=== PATIENT | male | born 1960 | race Caucasian/White ===

== ENCOUNTER 2023-04-25 11:56 | Emergency (ER) | payer MEDICARE, SELFPAY ==
[2023-04-25 12:01] VITALS: BP 144/102; PULSE 121; RESP 16; TEMP 36.5; O2SAT 96
--- OUTSIDE RECORDS SUMMARY | 2023-04-25 12:16 | XMS_ITS | Continuity of Care Document ---
Author Name Unknown Organization [facility] Address [address] [place] [address] Care Team Providers Care Learning Center Coordinator Name Role Phone Page Cheli SINGH Primary Care Physician Encounter [facility] NBR [id number] Date(s): 03/23/23 - 03/25/23 [facility] [address] [place] [address]- Encounter Diagnosis Status post alcohol detoxification(Discharge Diagnosis) - 03/23/23 Epigastric pain(Discharge Diagnosis) - 03/23/23 Alcohol abuse(Discharge Diagnosis) - 03/23/23 Tachycardia(Discharge Diagnosis) - 03/23/23 Diarrhea(Discharge Diagnosis) - 03/23/23 Hypokalemia(Discharge Diagnosis) - 03/23/23 Hypomagnesemia(Discharge Diagnosis) - 03/23/23 Discharge Disposition: Home f/u External Provider Attending Physician: John Grajeda MD Admitting Physician: John Grajeda MD Allergies, Adverse Reactions, Alerts Substance Reaction Severity Status Cats Unknown Active Assessment and Plan Future Scheduled Tests Laboratory* Vitamin D 25 Hydroxy Level 03/10/23 * Vitamin D 25 Hydroxy Level 03/10/23 * Potassium Level 03/10/23 * Potassium Level 03/10/23 * CBC w/ Diff 03/10/23 * CBC w/ Diff 03/10/23 * Comprehensive Metabolic Panel 03/10/23 * Comprehensive Metabolic Panel 03/10/23 * Magnesium Level 03/10/23 * Magnesium Level 03/10/23 * Vitamin B1 (Thiamine), Blood LC 03/10/23 * Vitamin B1 (Thiamine), Blood LC 03/10/23 * Vitamin B12 & Folate Level 03/10/23 * Vitamin B12 & Folate Level 03/10/23 Functional Status 03/25/23 Lunch Percent 90 03/25/23 Breakfast Percent 100 03/25/23 ADLs Moderate assistance 03/24/23 Personal Care Provided Diaper/Brief mccloud ged, Gown change, Shave, Shower 03/23/23 Activity Status ADL Up to toilet 03/23/23 Family Member Travel History No recent t ravel Recent Travel History No recent travel Other exposure to Infectious Disease Non e 03/23/23 Living Environment No Living Environmen t Information Available Lives In Apartment Lives With Alone Living Situation Home independently Medications albuterol 90 mcg/inh aerosol inhaler 2 puffs, Inhale, every 4 hr, PRN as needed for wheezing, # 6.7 g, 0 Refill(s) Start Date: 03/24/23 Status: Ordered folic acid 0.4 mg oral tablet 0.4 mg = 1 tab, Oral, Daily, # 100 tab, 0 Refill(s) Start Date: 02/24/23 Status: Ordered hydrOXYzine hydrochloride 50 mg oral tablet 50 mg = 1 tab, Oral, TID, PRN as needed for anxiety Start Date: 10/20/22 Status: Ordered ibuprofen 200 mg oral tablet 400 mg = 2 tab, Oral, every 4 hr, PRN as needed for pain, # 120 tab, 0 Refill(s) Start Date: 02/24/23 Status: Ordered loratadine 10 mg oral tablet 10 mg = 1 tab, Oral, Daily, PRN as needed for allergy symptoms, # 30 tab, 0 Refill(s) Start Date: 03/24/23 Status: Ordered magnesium oxide 400 mg (241.3 mg elemental magnesium) oral tablet 400 mg = 1 tab, Oral, BID, # 60 tab, 0 Refill(s), Pharmacy: [facility] #[id number], 165, cm, 02/23/23 14:34:00 EDT, Height/Length Dosing, 64, kg, 02/23/23 14:34:00 EDT, Weight Dosing Start Date: 02/27/23 Status: Ordered Metoprolol Tartrate 25 mg oral tablet 25 mg = 1 tab, Oral, BID, # 60 tab, 0 Refill(s), Pharmacy: [facility] #[id number], 165, cm, 02/23/23 14:34:00 EDT, Height/Length Dosing, 64, kg, 02/23/23 14:34:00 EDT, Weight Dosing Start Date: 02/27/23 Status: Ordered naltrexone 50 mg oral tablet 50 mg = 1 tab, Oral, Daily, # 90 tab, 0 Refill(s) Start Date: 03/24/23 Status: Ordered pantoprazole 40 mg oral delayed release tablet 40 mg = 1 tab, Oral, every morning Start Date: 10/20/22 Status: Ordered potassium chloride 20 mEq oral tablet, extended release 40 mEq = 2 tab, Oral, BID, # 60 tab, 0 Refill(s), Pharmacy: [facility] #[id number], 165, cm, 03/23/23 18:02:00 EDT, Height/Length Dosing, 61.3, kg, 03/23/23 18:02:00 EDT, Weight Dosing Start Date: 03/25/23 Status: Ordered Seroquel 50 mg oral tablet 50 mg = 1 tab, Oral, every night at bedtime Start Date: 03/23/23 Status: Ordered sertraline 100 mg oral tablet 100 mg = 1 tab, Oral, Daily, # 30 tab, 0 Refill(s) Start Date: 03/24/23 Status: Ordered thiamine 100 mg oral tablet 100 mg = 1 tab, Oral, Daily, 0 Refill(s) Start Date: 10/21/22 Status: Ordered Vitamin D3 2000 intl units oral capsule 50 mcg 1 cap, Oral, every morning Start Date: 10/21/22 Status: Ordered Mental Status 03/23/23 Eye Opening Response Bartow Spontaneous ly Best Verbal Response [place] Oriented Best Motor Response Bartow Obeys comman ds Bartow Coma Score 15 Problem List Condition Confirmation Course Effective Dates Status Health St atus Informant Alcohol use with withdrawal Confirmed Active Results Laboratory List Name Date Potassium Level 03/25/23 Basic Metabolic Panel (BMP) 03/25/23 CBC w/ Diff 03/25/23 Magnesium Level 03/25/23 Automated Diff 03/25/23 Automated Diff 03/24/23 Basic Metabolic Panel (BMP) 03/24/23 CBC w/ Diff 03/24/23 Magnesium Level 03/24/23 GI Panel ([facility]) 03/23/23 Urinalysis with Micro if Indicated and C ulture if Indicated 03/23/23 Alcohol Lvl 03/23/23 CBC w/ Diff 03/23/23 Comprehensive Metabolic Panel (CMP) Lipase Level 03/23/23 Magnesium Level 03/23/23 Automated Diff 03/23/23 Most recent to oldest [Reference Range]: 1 2 3 WBC [4.8-10.8 K/mcL] 8.8 K/mcL (03/25/23 9:45 AM) 7.9 K/mcL (03/24/23 6:04 AM) 13.9 K/mcL *HI* (03/23/23 11:10 AM) RBC [4.20-6.10 Million/mcL] 3.92 Million /mcL *LOW* (03/25/23 9:45 AM) 3.69 Million/mcL *LOW* (03/24/23 6:04 AM) 4.46 Million/mcL (03/23/23 11:10 AM) Neutro Auto [42.2-75.2 %] 73.6 % (03/25/23 9:45 AM) 73.8 % (03/24/23 6:04 AM) 82.7 % *HI* (03/23/23 11:10 AM) Lymph Auto [20.5-51.1 %] 16.4 % *LOW* (03/25/23 9:45 AM) 15.9 % *LOW* (03/24/23 6:04 AM) 8.5 % *LOW* (03/23/23 11:10 AM) Prowers Auto [1.7-9.3 %] 8.5 % (03/25/23 9:45 AM) 9.3 % (03/24/23 6:04 AM) 7.8 % (03/23/23 11:10 AM) Basophil Auto [0.0-0.8 %] 0.1 % (03/25/23 9:45 AM) 0.1 % (03/24/23 6:04 AM) 0.1 % (03/23/23 11:10 AM) BUN [8-26 mg/dL] 8 mg/dL (03/25/23 9:45 AM) 8 mg/dL (03/24/23 6:04 AM) 10 mg/dL (03/23/23 11:10 AM) UA Color [Yellow] Yellow (03/23/23 1:20 PM) Glucose Level [74-106 mg/dL] 130 mg/dL *HI* (03/25/23 9:45 AM) 85 mg/dL (03/24/23 6:04 AM) 101 mg/dL (03/23/23 11:10 AM) Potassium Level [3.5-5.1 mmol/L] 3.7 mmol/L (03/25/23 3:00 PM) 2.8 mmol/L *LOW* (03/25/23 9:45 AM) 3.2 mmol/L *LOW* (03/24/23 6:04 AM) Baso Absolute [0.0-0.2 K/mcL] 0.0 K/mcL (03/25/23 9:45 AM) 0.0 K/mcL (03/24/23 6:04 AM) 0.0 K/mcL (03/23/23 11:10 AM) MCV [80.0-94.0 fL] 95.7 fL *HI* (03/25/23 9:45 AM) 96.2 fL *HI* (03/24/23 6:04 AM) 92.6 fL (03/23/23 11:10 AM) UA Urobilinogen [0.2] 1.0 *ABN* (03/23/23 1:20 PM) UA Bili [Negative] Negative (03/23/23 1:20 PM) UA Ketones [Negative] Negative (03/23/23 1:20 PM) AST [15-41 IntlUnit/L] 48 IntlUnit/L *HI* (03/23/23 11:10 AM) ALT [17-63 IntlUnit/L] 30 IntlUnit/L (03/23/23 11:10 AM) MCHC [32.0-36.0 g/dL] 34.4 g/dL (03/25/23 9:45 AM) 33.5 g/dL (03/24/23 6:04 AM) 34.9 g/dL (03/23/23 11:10 AM) Osmolality [275-295 mOsm/kg] 276 mOsm/kg (03/25/23 9:45 AM) 271 mOsm/kg *LOW* (03/24/23 6:04 AM) 269 mOsm/kg *LOW* (03/23/23 11:10 AM) Sodium Level [134-143 mmol/L] 138 mmol/L (03/25/23 9:45 AM) 137 mmol/L (03/24/23 6:04 AM) 135 mmol/L (03/23/23 11:10 AM) UA Leuk Est [Negative] Negative (03/23/23 1:20 PM) Lymph Absolute [1.2-3.4 K/mcL] 1.4 K/mcL (03/25/23 9:45 AM) 1.2 K/mcL (03/24/23 6:04 AM) 1.2 K/mcL (03/23/23 11:10 AM) UA Nitrite [Negative] Negative (03/23/23 1:20 PM) UA Glucose [Negative] Negative (03/23/23 1:20 PM) Hct [42.0-52.0 %] 37.5 % *LOW* (03/25/23 9:45 AM) 35.5 % *LOW* (03/24/23 6:04 AM) 41.3 % *LOW* (03/23/23 11:10 AM) Lipase Level [18-51 unit/L] 27 unit/L 1 (03/23/23 11:10 AM) Calcium Level [8.9-10.3 mg/dL] 8.2 mg/dL *LOW* (03/25/23 9:45 AM) 7.8 mg/dL *LOW* (03/24/23 6:04 AM) 8.8 mg/dL *LOW* (03/23/23 11:10 AM) Prowers Absolute [0.1-0.6 K/mcL] 0.8 K/mcL *HI* (03/25/23 9:45 AM) 0.7 K/mcL *HI* (03/24/23 6:04 AM) 1.1 K/mcL *HI* (03/23/23 11:10 AM) Albumin Level [3.5-5.0 g/dL] 3.5 g/dL (03/23/23 11:10 AM) Protein Total [6.5-8.1 g/dL] 6.6 g/dL (03/23/23 11:10 AM) UA Protein [Negative] Negative (03/23/23 1:20 PM) MCH [27.0-31.0 pg] 32.9 pg *HI* (03/25/23 9:45 AM) 32.2 pg *HI* (03/24/23 6:04 AM) 32.3 pg *HI* (03/23/23 11:10 AM) Magnesium Level [1.8-2.5 mg/dL] 1.8 mg/d L (03/25/23 9:45 AM) 2.0 mg/dL (03/24/23 6:04 AM) 1.4 mg/dL *LOW* (03/23/23 11:10 AM) Neutro Absolute [1.4-6.5 K/mcL] 6.5 K/mc L (03/25/23 9:45 AM) 5.8 K/mcL (03/24/23 6:04 AM) 11.5 K/mcL *HI* (03/23/23 11:10 AM) Bilirubin Total [0.2-1.2 mg/dL] 2.6 mg/d L *HI* (03/23/23 11:10 AM) Hgb [14.0-18.0 g/dL] 12.9 g/dL *LOW* (03/25/23 9:45 AM) 11.9 g/dL *LOW* (03/24/23 6:04 AM) 14.4 g/dL (03/23/23 11:10 AM) Alk Phos [38-130 IntlUnit/L] 129 IntlUni t/L (03/23/23 11:10 AM) UA Blood [Negative] Negative (03/23/23 1:20 PM) MPV [7.4-10.4 fL] 10.2 fL (03/25/23 9:45 AM) 9.7 fL (03/24/23 6:04 AM) 10.3 fL (03/23/23 11:10 AM) Ethanol Level [0.00-0.08 g/dL] See Comme nt g/dL 2 *NA* (03/23/23 11:10 AM) UA Spec Grav [1.001-1.030] <=1.005 *NA* (03/23/23 1:20 PM) Platelets [130-400 K/mcL] 135 K/mcL (03/25/23 9:45 AM) 113 K/mcL *LOW* (03/24/23 6:04 AM) 171 K/mcL (03/23/23 11:10 AM) CO2 [22-32 mmol/L] 22 mmol/L (03/25/23 9:45 AM) 23 mmol/L (03/24/23 6:04 AM) 26 mmol/L (03/23/23 11:10 AM) Eos Absolute [0.0-0.2 K/mcL] 0.1 K/mcL (03/25/23 9:45 AM) 0.0 K/mcL (03/24/23 6:04 AM) 0.0 K/mcL (03/23/23 11:10 AM) UA pH [5.00-9.00] 7.50 (03/23/23 1:20 PM) UA Appear [Clear] Clear (03/23/23 1:20 PM) Chloride Level [98-111 mmol/L] 108 mmol/ L (03/25/23 9:45 AM) 105 mmol/L (03/24/23 6:04 AM) 93 mmol/L *LOW* (03/23/23 11:10 AM) RDW-CV [11.5-14.5 %] 14.6 % *HI* (03/25/23 9:45 AM) 14.5 % (03/24/23 6:04 AM) 14.0 % (03/23/23 11:10 AM) Adenovirus F 40/41 GIP-BFire [Not Detected] Not Detected (03/23/23 6:18 PM) Astrovirus GIP-BFire [Not Detected] Not Detected (03/23/23 6:18 PM) Cyclospora cayetanensis GIP-BFire [Not Detected] Not Detected (03/23/23 6:18 PM) Clostridioides difficile tox in A/B -BFir [Not Detected] Not Detected (03/23/23 6:18 PM) Campylobacter GIP-BFire [Not Detected] Not Detected (03/23/23 6:18 PM) Cryptosporidium GIP-BFire [N ot Detected] Not Detected (03/23/23 6:18 PM) E. coli O157 GIP-BFire [Not Detected] N/A (03/23/23 6:18 PM) Entamoeba histolytica GIP-BF juan [Not Detected] Not Detected (03/23/23 6:18 PM) Enteroaggregative E. coli GIP-BFire [Not Detected] Not Detected (03/23/23 6:18 PM) Enteropathogenic E. coli GIP-BFire [Not Detected] Not Detected (03/23/23 6:18 PM) Enterotoxige E. coli LT/ST GIP-BFire [Not Detected] Not Detected (03/23/23 6:18 PM) Giardia lamblia GIP-BFire [N ot Detected] Not Detected (03/23/23 6:18 PM) Norovirus GI/GII GIP-BFire [ Not Detected] Not Detected (03/23/23 6:18 PM) Plesiomonas shigelloides GIP-BFire [Not Detected] Not Detected (03/23/23 6:18 PM) Rotavirus A GIP-BioF [Not Detected] Not Detected (03/23/23 6:18 PM) Salmonella GIP-BFire [Not Detected] Not Detected (03/23/23 6:18 PM) Sapovirus GIP-BFire Not Detected (03/23/23 6:18 PM) Shiga-toxin1/2-prod E.coli GIP-BFire [Not Detected] Not Detected (03/23/23 6:18 PM) Shigella/Enteroinv E. coli GIP-BFire [Not Detected] Not Detected (03/23/23 6:18 PM) Vibrio cholerae GIP-BFire [N ot Detected] Not Detected (03/23/23 6:18 PM) Vibrio species GIP-BFire [No t Detected] Not Detected (03/23/23 6:18 PM) Yersinia enterocolitica GIP-BFire [Not Detected] Not Detected (03/23/23 6:18 PM) A/G Ratio 1.1 *NA* (03/23/23 11:10 AM) BUN/Creat Ratio [8.0-20.0] 11.1 (03/25/23 9:45 AM) 9.9 (03/24/23 6:04 AM) 10.6 (03/23/23 11:10 AM) Globulin 3.1 *NA* (03/23/23 11:10 AM) Imm Gran Absolute 0.05 *NA* (03/25/23 9:45 AM) 0.05 *NA* (03/24/23 6:04 AM) 0.11 *NA* (03/23/23 11:10 AM) Imm Gran Auto [0.0-0.5 %] 0.6 % *HI* (03/25/23 9:45 AM) 0.6 % *HI* (03/24/23 6:04 AM) 0.8 % *HI* (03/23/23 11:10 AM) NRBC Auto 0 *NA* (03/25/23 9:45 AM) 0 *NA* (03/24/23 6:04 AM) NRBC Absolute 0 *NA* (03/25/23 9:45 AM) 0 *NA* (03/24/23 6:04 AM) Slide Review Not Indicated (03/23/23 11:10 AM) Urine Srce Clean Catch (03/23/23 1:20 PM) Creatinine Level [0.61-1.24 mg/dL] 0.72 mg/dL (03/25/23 9:45 AM) 0.81 mg/dL (03/24/23 6:04 AM) 0.94 mg/dL (03/23/23 11:10 AM) Anion Gap [3.0-12.0] 8.0 (03/25/23 9:45 AM) 9.0 (03/24/23 6:04 AM) 16.0 *HI* (03/23/23 11:10 AM) Eos, Auto [0.00-3.00 %] 0.80 % (03/25/23 9:45 AM) 0.30 % (03/24/23 6:04 AM) 0.10 % (03/23/23 11:10 AM) Instr Ethanol Lvl [<=5 mg/dL] <5 mg/dL (03/23/23 11:10 AM) eGFR CKD-EPI [>=60 mL/min/1. 73 m2] 103 mL/min/1.73 m2 (03/25/23 9:45 AM) 99 mL/min/1.73 m2 (03/24/23 6:04 AM) 91 mL/min/1.73 m2 (03/23/23 11:10 AM) 1Interpretive Data: V-uiqmha-x-benzoquinone imine (meabolite of Acetaminophen) will generate erroneously low lipase results in samples for patients that have taken toxic doses of acetaminophen. 2Result Comment: Unable to calculate ratio value as result is less than the linear limit. Radiology Reports * Exam Date Time Procedure Performing Provider Status 03/23/23 12:[address] Abdomen and Pelvis w/ Contrast Lita Holloway; Zoila (Verified) Notes: (CT Abdomen and Pelvis w/ Contrast) Reason For Exam: abd pain CT Abdomen and Pelvis w/ Contrast EXAM DESCRIPTION: CT Abdomen and Pelvis w/ Contrast 03/23/2023 INDICATION: ABD PAIN TECHNIQUE: All CT scans at this facility use at least one of these dose optimization techniques: Automated exposure control; mA and/or kV adjustment per patient size (includes targeted exams where dose is matched to clinical indication); or iterative reconstruction. Technique: Axial CT images of the abdomen/pelvis with IV contrast administration 100 cc of Isovue-300 contrast was utilized COMPARISON: None FINDINGS: Diffusely decreased hepatic attenuation consistent with hepatic steatosis. No focal hepatic lesion. Normal enhancement of the main hepatic veins and main portal vein. Normal spleen size without focal mass No calcified gallstones in the gallbladder. Adrenal glands and pancreas appear within normal limits. No focal renal mass, hydronephrosis or perinephric fluid collection on either side Normal caliber abdominal aorta with atherosclerotic calcifications. No retroperitoneal adenopathy in the abdomen or pelvis. Prostate gland is mildly enlarged with indentation of the bladder base No bowel dilatation to suggest obstruction or ileus. No free intraperitoneal air, ascites or inflammatory changes. Normal appendix. Scattered colonic diverticula. Tiny fat containing paraumbilical ventral abdominal hernia. Mild hiatal hernia. The visualized lung bases are clear. No suspicious regional osseous lesions. Mild compression deformity involving the L1 vertebral body of uncertain age, likely remote. Spondylotic changes in the visualized spinal axis. IMPRESSION: No acute findings in the abdomen or pelvis. Nonobstructive bowel pattern. No free air or inflammatory changes. Normal appendix Hepatic steatosis. Mild prostate enlargement. JOB #: [id number] Final Signed by: Bryan Reyes MD Signed (Electronic Signature): 03/23/2023 12:54 pm Vital Signs Most recent to oldest [Reference Range]: 1 2 3 Temperature Tympanic [36.6-37.9 Deg C] 36.4 Deg C *LOW* (03/23/23 10:10 AM) Temperature Temporal Artery [36-38 Deg C] 36.6 Deg C (03/24/23 3:20 AM) 36.6 Deg C (03/24/23 12:07 AM) 36.7 Deg C (03/23/23 7:25 PM) Temperature Temporal Artery (DegF) [97.3-100 Deg F] 97.88 Deg F (03/24/23 3:20 AM) Peripheral Pulse Rate [60-100 bpm] 88 bpm (03/25/23 11:04 AM) 124 bpm *HI* (03/25/23 10:21 AM) 94 bpm (03/24/23 3:50 PM) Heart Rate Monitored [60-100 bpm] 145 bpm *HI* (03/23/23 5:15 PM) 145 bpm *HI* (03/23/23 5:00 PM) 106 bpm *HI* (03/23/23 4:45 PM) Respiratory Rate [12-24 br/min] 18 br/min (03/25/23 10:21 AM) 18 br/min (03/24/23 7:23 AM) 22 br/min (03/24/23 3:20 AM) Blood Pressure [90-140/60-90 mmHg] 154/94mmHg *HI* (03/25/23 10:21 AM) 135/80mmHg (03/24/23 3:50 PM) 139/94mmHg (03/24/23 7:23 AM) Mean Arterial Pressure, Cuff [65-140 mmHg] 110 mmHg (03/24/23 3:20 AM) 120 mmHg (03/23/23 6:03 PM) Mean Arterial Pressure Cuff 101 mmHg (03/23/23 3:30 PM) 101 mmHg (03/23/23 3:15 PM) 125 mmHg (03/23/23 3:00 PM) Blood Pressure Location Left arm (03/23/23 6:03 PM) Patient Position BP Supine (03/23/23 6:03 PM) Weight 61.300 kg (03/23/23 5:51 PM) 61.300 kg (03/23/23 5:51 PM) 61.300 kg (03/23/23 5:44 PM) Weight Dosing 61.300 kg (03/23/23 5:51 PM) 61.300 kg (03/23/23 5:44 PM) 63.80 kg (03/23/23 10:58 AM) Height 165.000 cm (03/23/23 5:51 PM) 165.000 cm (03/23/23 5:44 PM) 165.000 cm (03/23/23 10:10 AM) Height/Length Dosing 165.000 cm (03/23/23 5:51 PM) 165.000 cm (03/23/23 5:44 PM) 165.000 cm (03/23/23 10:58 AM) Body Mass Index 22.520 kg/m2 (03/23/23 5:51 PM) 22.520 kg/m2 (03/23/23 5:44 PM) 23.000 kg/m2 (03/23/23 10:10 AM) Social History Social History Type Response Tobacco Current everyday tob acco user Tobacco Use:. 1/3 pack a day per day. Sex Hospital Discharge Instructions Patient Education 03/25/2023 09:37:53 Diarrhea, Adult Diarrhea, Adult Diarrhea is frequent loose and watery bowel movements. Diarrhea can make you feel weak and cause you to become dehydrated. Dehydration can make you tired and thirsty, cause you to have a dry mouth, and decrease how often you urinate. Diarrhea typically lasts 2???3 days. However, it can last longer if it is a sign of something more serious. It is important to treat your diarrhea as told by your health care provider. Follow these instructions at home: Eating and drinking Follow these recommendations as told by your health care provider: ??? Take an oral rehydration solution (ORS). This is an emzz-uxd-lcisrfe medicine that helps returnyour body to its normal balance of nutrients and water. It is found at pharmacies and retail stores. ??? Drink plenty of fluids, such as water, ice chips, diluted fruit juice, and low-calorie sports drinks. You can drink milk also, if desired. ??? Avoid drinking fluids that contain a lot of sugar or caffeine, such as energy drinks, sports drinks, and soda. ??? Eat bland, mezn-es-dlkpzu foods in small amounts as you are able. These foods include bananas, applesauce, rice, lean meats, toast, and crackers. ??? Avoid alcohol. ??? Avoid spicy or fatty foods. Medicines ??? Take uyto-gzd-jxzlwjr and prescription medicines only as told by your health care provider. ??? If you were prescribed an antibiotic medicine, take it as told by your health care provider. Donot stop using the antibiotic even if you start to feel better. General instructions ??? Wash your hands often using soap and water. If soap and water are not available, use a hand industrial twisting machine operator. Others in the household should wash their hands as well. Hands should be washed: ??? After using the toilet or changing a diaper. ??? Before preparing, cooking, or serving food. ??? While caring for a sick person or while visiting someone in a hospital. ??? Drink enough fluid to keep your urine pale yellow. ??? Rest at home while you recover. ??? Watch your condition for any changes. ??? Take a warm bath to relieve any burning or pain from frequent diarrhea episodes. ??? Keep all follow-up visits as told by your health care provider. This is important. Contact a health care provider if: ??? You have a fever. ??? Your diarrhea gets worse. ??? You have new symptoms. ??? You cannot keep fluids down. ??? You feel light-headed or dizzy. ??? You have a headache. ??? You have muscle cramps. Get help right away if: ??? You have chest pain. ??? You feel extremely weak or you faint. ??? You have bloody or black stools or stools that look like tar. ??? You have severe pain, cramping, or bloating in your abdomen. ??? You have trouble breathing or you are breathing very quickly. ??? Your heart is beating very quickly. ??? Your skin feels cold and clammy. ??? You feel confused. ??? You have signs of dehydration, such as: ??? Dark urine, very little urine, or no urine. ??? Cracked lips. ??? Dry mouth. ??? Sunken eyes. ??? Sleepiness. ??? Weakness. Summary ??? Diarrhea is frequent loose and sometimes watery bowel movements. Diarrhea can make you feel weak and cause you to become dehydrated. ??? Drink enough fluids to keep your urine pale yellow. ??? Make sure that you wash your hands after using the toilet. If soap and water are not available,use hand industrial twisting machine operator. ??? Contact a health care provider if your diarrhea gets worse or you have new symptoms. ??? Get help right away if you have signs of dehydration. This information is not intended to replace advice given to you by your health care provider. Make sure you discuss any questions you have with your health care provider. Document Revised: 02/16/2022 Document Reviewed: 02/16/2022 [employer] Patient Education ?? 2022 [employer]. Follow Up Care 03/23/2023 10:10:28 With:Cheli Gupta APRN Address: [address] [place] [address]- When:1 to 2 weeks Pharmacology Note * Song Sousa: PERFORM Event Display: Pharmacy Note Authored Date: [id number] med hx via SS and pt interview. pt appears a decent hx though a bit scattered. of note : pt reportsusing gabapentin 300 mg bid and naltrexone 50mg daily , but no fills since march of last year found. (confirmed with pharmacy) Discharge instructions * Jennifer Giordano: PERFORM Event Display: Discharge Instructions Authored Date: [id number] JOSE MARIA GUTIERREZ :1960 Age:62 years Sex:Male Visit Date:03/23/2023 Primary Care Physician: Cheli Gputa APRN Hospital Discharge Instructions We would like to thank you for allowing us to assist you with your healthcare needs. The following includes patient education materials and information regarding your injury/illness. Your Next Steps Follow Up Appointments Follow Up with??Cheli Gupta APRN When:??Within 1 to 2 weeks Where: [address] [place] [address]- Medications What How Much When Instructions Next Dose Changed QUEtiapine (Seroquel 50 mg oral tablet) 1 tab Oral (given by mouth) Every night at bedtime Changed ibuprofen (ibuprofen 200 mg oral tablet) 2 tab Oral (given by mouth) Every 4 hours as needed for as needed for pain Changed potassium chloride (potassium chloride 20 mEq oral tablet, extended release) 2 tab Oral (given by mouth) 2 times a day Pickup at [id number] Changed sertraline (sertraline 100 mg oral tablet) 1 tab Oral (given by mouth) Every day Unchanged albuterol (albuterol 90 mcg/ inh aerosol inhaler) 2 Puffs Inhale (breathe in) Every 4 hours as needed for as needed for wheezing Unchanged cholecalciferol (Vitamin D3 2000 intl units oral capsule) 1 Capsules Oral (given by mouth) Every morning Unchanged folic acid (folic acid 0.4 mg oral tablet) 1 tab Oral (given by mouth) Every day Unchanged hydrOXYzine (hydrOXYzine hydrochloride 50 mg oral tablet) 1 tab Oral (given by mouth) 3 times a day as needed for as needed for anxiety Unchanged loratadine (loratadine 10 mg oral tablet) 1 tab Oral (given by mouth) Every day as needed for as needed for allergy symptoms Unchanged magnesium oxide (magnesium oxide 400 mg (241.3 mg elemental magnesium) oral tablet) 1 tab Oral (given by mouth) 2 times a day Unchanged metoprolol (Metoprolol Tartrate 25 mg oral tablet) 1 tab Oral (given by mouth) 2 times a day Unchanged naltrexone (naltrexone 50 mg oral tablet) 1 tab Oral (given by mouth) Every day Unchanged pantoprazole (pantoprazole 40 mg oral delayed release tablet) 1 tab Oral (given by mouth) Every morning Unchanged thiamine (thiamine 100 mg oral tablet) 1 tab Oral (given by mouth) Every day Pharmacy Information [id number]: [address], [place] [id number] [phone] Your Summary Your Care Team Admitting Physician - Nicci ALANIZ, John Attending Physician - Nicci ALANIZ, John Primary Care Physician - Cheli Gupta APRN Your Diagnosis Diarrhea Hypokalemia Epigastric pain Alcohol abuse Status post alcohol detoxification Tachycardia Hypomagnesemia Problems Ongoing - Any problem that you are currently receiving treatment for. Alcohol use with withdrawal Tests Performed/Pending Alcohol Lvl Automated Diff BMP CBC w/ Diff CMP GI Panel ([employer]) Lipase Level Magnesium Level Potassium Level?-- Results Pending -- Urinalysis with Micro if Indicated and Culture if Indicated CT Abdomen and Pelvis w/ Contrast Discharge Vitals Heart Rate??(Peripheral) 88 Respiratory Rate?? 18 Blood Pressure?? 154/94?? Allergies Cats Education Materials Diarrhea, Adult Diarrhea is frequent loose and watery bowel movements. Diarrhea can make you feel weak and cause you to become dehydrated. Dehydration can make you tired and thirsty, cause you to have a dry mouth, and decrease how often you urinate. Diarrhea typically lasts 2???3 days. However, it can last longer if it is a sign of something more serious. It is important to treat your diarrhea as told by your health care provider. Follow these instructions at home: Eating and drinking Follow these recommendations as told by your health care provider: ? Take an oral rehydration solution (ORS). This is an mgns-mzv-mpmekgx medicine that helps return your body to its normal balance of nutrients and water. It is found at pharmacies and retail stores. ? Drink plenty of fluids, such as water, ice chips, diluted fruit juice, and low- calorie sports drinks. You can drink milk also, if desired. ? Avoid drinking fluids that contain a lot of sugar or caffeine, such as energy drinks, sports drinks, and soda. ? Eat bland, ggeh-tt-qfxwls foods in small amounts as you are able. These foods include bananas, applesauce, rice, lean meats, toast, and crackers. ? Avoid alcohol. ? Avoid spicy or fatty foods. Medicines ? Take exyh-htc-luonzju and prescription medicines only as told by your health care provider. ? If you were prescribed an antibiotic medicine, take it as told by your health care provider. Do notstop using the antibiotic even if you start to feel better. General instructions ? Wash your hands often using soap and water. If soap and water are not available, use a hand industrial twisting machine operator. Others in the household should wash their hands as well. Hands should be washed: ? After using the toilet or changing a diaper. ? Before preparing, cooking, or serving food. ? While caring for a sick person or while visiting someone in a hospital. ? Drink enough fluid to keep your urine pale yellow. ? Rest at home while you recover. ? Watch your condition for any changes. ? Take a warm bath to relieve any burning or pain from frequent diarrhea episodes. ? Keep all follow-up visits as told by your health care provider. This is important. Contact a health care provider if: ? You have a fever. ? Your diarrhea gets worse. ? You have new symptoms. ? You cannot keep fluids down. ? You feel light-headed or dizzy. ? You have a headache. ? You have muscle cramps. Get help right away if: ? You have chest pain. ? You feel extremely weak or you faint. ? You have bloody or black stools or stools that look like tar. ? You have severe pain, cramping, or bloating in your abdomen. ? You have trouble breathing or you are breathing very quickly. ? Your heart is beating very quickly. ? Your skin feels cold and clammy. ? You feel confused. ? You have signs of dehydration, such as: ? Dark urine, very little urine, or no urine. ? Cracked lips. ? Dry mouth. ? Sunken eyes. ? Sleepiness. ? Weakness. Summary ? Diarrhea is frequent loose and sometimes watery bowel movements. Diarrhea can make you feel weak and cause you to become dehydrated. ? Drink enough fluids to keep your urine pale yellow. ? Make sure that you wash your hands after using the toilet. If soap and water are not available, usehand industrial twisting machine operator. ? Contact a health care provider if your diarrhea gets worse or you have new symptoms. ? Get help right away if you have signs of dehydration. This information is not intended to replace advice given to you by your health care provider. Make sure you discuss any questions you have with your health care provider. Document Revised: 02/16/2022 Document Reviewed: 02/16/2022 [employer] Patient Education ?? 2022 [employer]. Patient/Steamfitter Supervisor Signature Patient Name:JOSE MARIA GUTIERREZ I have received this information and my questions have been answered. Patient/Steamfitter Supervisor Name: Patient/Steamfitter Supervisor Signature: Relationship to Patient: Witness Name/Signature: Date: Electronically Signed on: 03/25/2023 11:05 EDTSigned by:DAMIAN Physician Emergency department Note * SHAQUILLE Chow: PERFORM Event Display: ED Note Physician Authored Date: [id number] JOSE MARIA GUTIERREZ :1960 Age:62 years Sex:Male Visit Date:03/23/2023 Primary Care Physician: Cheli Gupta APRN Basic Information Time Seen: SHAQUILLE Chow / 03/23/2023 10:17 Chief Complaint stomach virus x 3 days , presents with esophagus painb , vomited yellow/ green bile earlier today History Of Present Illness: Patient is a 62-year-old male??presenting to the ED today with??pain in the epigastric region.?? Explains for the past 3 days he was experiencing a GI bug with symptoms including nausea vomiting and epigastric pain. ??The nausea and vomiting have significantly improved today however he is still feeling??the epigastric pain. ??Describes it as??a gnawing acidic pain??with an associated GERD reflux. No diarrhea or change??in stools. ??Some mild abdominal cramping but patient explains it feels as if he is hungry.?? Had 1 episode of vomiting today. ?? Of note patient was admitted??February 23 through February 27 for alcohol withdrawal. ??He says that he has not had any alcohol since this time. Review of Systems: See HPI Physical Exam Vitals & Measurements T:??36.4?C ??(Tympanic)?? HR:??108??(Peripheral)?? RR:??16?? BP:??151/108?? SpO2:??99%?? HT:??165.000??cm?? WT:??63.80??kg?? BMI:??23.000?? Pain Score:??2?? General: Patient is alert and engaging, appears well. Is in no acute distress. Speaking comfortablyin full sentences.?? Constitutional: No fevers, chills or diaphoresis.?? HEENT: Head normocephalic and atraumatic. Neck supple with FROM w/o lymphadenopathy or JVD. Respiratory: ??No obvious work of breathing, regular rate.?? Cardiovascular: Heart regular rate and rhythm w/o murmurs, rubs or gallops. No peripheral edema present.?? : Abdomen obese.?? No ecchymosis or ascites present.?Hyperactive bowel sounds abdomen soft tenderness to the epigastric region. Extremities: No obvious deformities. FROM.?? Integumentary: Skin warm and pale. No rashes or ecchymosis present.?? Neuro: CN III-XII grossly intact.?? Psychiatric: acting appropriate for age and circumstance. Normal mood without obvious ??affect.?? Medical Decision Making: Patient??here for epigastric pain??and says he is now??feeling??hungry and the nausea has significantly improved today.?? However he did continue to vomit during stay here especially when we are trialing??PO medications.?? Vital signs of obtained and reviewed. Presenting like a gastritis possibly from a recent??virus. ??Patient is also??3 weeks??sober??was admitted February 23 through February 27 for alcohol withdrawal. Considered pancreatitis, lipase 27. Potassium was??2.8 .attempted to give patient 40 mEq PO however??did not tolerate and ??immediatelyvomited. ??Was then given IV potassium. ??An additional??40mEq given??PO??after??the medics and Protonix given however patient was still not able to tolerate. ??Single dose of Zofran given. ??Did not repeat dose due to prolonged QTc on EKG. ?? Abdominal CT obtained with nonobstructive bowel patterns. ??No free air or inflammatory changes. ?? Patient is not able to tolerate??PO potassium.?? Plan is to admit for IV potassium??until he is able to reach an adequate level. Procedure No Qualifying Data Assessment/Plan 1.??Epigastric pain??R10.13 Plan to admit??until potassium stabilized and he is able to tolerate??oral fluids??and medications. Orders: ondansetron, 4 mg = 2 mL, IV Push, Vial, every 6 hr, PRN nausea/vomiting, First Dose: 03/23/23 11:31:00 EDT potassium chloride, 40 mEq = 2 tab, Oral, Tab-ER, Daily for 1 doses, First Dose: 03/23/23 14:09:00 EDT, Stop Date: 03/24/23 8:59:00 EDT, Physician Stop potassium chloride, 10 mEq = 100 mL, IV Piggyback, Injection, Daily for 1 doses, Administer over: 60 minutes, First Dose: 03/23/23 12:46:00 EDT, Stop Date: 03/24/23 8:59:00 EDT, Physician Stop, 100 mL/hr Decision to Admit, 03/23/23 15:42:00 EDT, Medical Unit Medication Reconciliation Unchanged cholecalciferol (Vitamin D3 2000 intl units oral capsule)1 Capsules Oral (given by mouth) every morning. ?? folic acid (folic acid 0.4 mg oral tablet)1 tab Oral (given by mouth) every day. ?? hydrOXYzine (hydrOXYzine hydrochloride 50 mg oral tablet)1 tab Oral (given by mouth) 3 times a day as needed as needed for anxiety. ?? ibuprofen (ibuprofen 200 mg oral tablet)2 tab Oral (given by mouth) every 4 hours as needed as needed for fever. ?? magnesium oxide (magnesium oxide 400 mg (241.3 mg elemental magnesium) oral tablet)1 tab Oral (given by mouth) 2 times a day. Refills: 0. ?? metoprolol (Metoprolol Tartrate 25 mg oral tablet)1 tab Oral (given by mouth) 2 times a day. Refills: 0. ?? pantoprazole (pantoprazole 40 mg oral delayed release tablet)1 tab Oral (given by mouth) every morning. ?? potassium chloride (potassium chloride 20 mEq oral tablet, extended release)1 tab Oral (given by mouth) 2 times a day. Refills: 0. ?? sertraline (sertraline 50 mg oral tablet)1 tab Oral (given by mouth) every morning. ?? thiamine (thiamine 100 mg oral tablet)1 tab Oral (given by mouth) every day. Problem List/Past Medical History Ongoing Alcohol use with withdrawal Historical No qualifying data Medication Administration Given Sodium Chloride 0.9%, 1000 mL, Hydration Bolus famotidine, 20 mg, IV Piggyback ondansetron, 4 mg, IV Push pantoprazole, 40 mg, Oral potassium chloride, 40 mEq, Oral potassium chloride, 10 mEq, IV Piggyback potassium chloride, 40 mEq, Oral Allergies Cats Social History Electronic Cigarette/Vaping Electronic Cigarette Use: Never. Home/Environment Lives with Alone. Living situation: Home/Independent. Tobacco Never tobacco user Tobacco Use:. Diagnostic Results CT Abdomen and Pelvis w/ Contrast 03/23/2023 12:[address] Abdomen and Pelvis w/ Contrast ?? 03/23/23 12:54:19 EXAM DESCRIPTION: CT Abdomen and Pelvis w/ Contrast ?? 03/23/2023 ?? INDICATION: ABD PAIN ?? TECHNIQUE: All CT scans at this facility use at least one of these dose optimization techniques: Automated exposure control; mA and/or kV adjustment per patient size (includes targeted exams where dose is matched to clinical indication); or iterative reconstruction. ?? Technique: Axial CT images of the abdomen/pelvis with IV contrast administration ?? 100 cc of Isovue-300 contrast was utilized ?? COMPARISON: None ?? FINDINGS: Diffusely decreased hepatic attenuation consistent with hepatic steatosis. No focal hepatic lesion. Normal enhancement of the main hepatic veins and main portal vein. ?? Normal spleen size without focal mass ?? No calcified gallstones in the gallbladder. ?? Adrenal glands and pancreas appear within normal limits. ?? No focal renal mass, hydronephrosis or perinephric fluid collection on either side ?? Normal caliber abdominal aorta with atherosclerotic calcifications. ?? No retroperitoneal adenopathy in the abdomen or pelvis. ?? Prostate gland is mildly enlarged with indentation of the bladder base ?? No bowel dilatation to suggest obstruction or ileus. No free intraperitoneal air, ascites or inflammatory changes. Normal appendix. Scattered colonic diverticula. Tiny fat containing paraumbilical ventral abdominal hernia. Mild hiatal hernia. ?? The visualized lung bases are clear. ?? No suspicious regional osseous lesions. Mild compression deformity involving the L1 vertebral body of uncertain age, likely remote. Spondylotic changes in the visualized spinal axis. ?? IMPRESSION: No acute findings in the abdomen or pelvis. ?? Nonobstructive bowel pattern. No free air or inflammatory changes. Normal appendix ?? Hepatic steatosis. ?? Mild prostate enlargement. ? JOB #: [id number] Electronically Signed By: ?? Signed By: Bryan Reyes MD Lab Results CBC and Differential?? LATEST RESULTS?? HISTORICAL RESULTS?? WBC?? 03/23/23 11:10?? 13.9 ??High?? 02/25/23?? 7.0?? RBC?? 03/23/23 11:10?? 4.46?? 02/25/23?? 3.73 ??Low?? Hgb?? 03/23/23 11:10?? 14.4?? 02/25/23?? 12.1 ??Low?? Hct?? 03/23/23 11:10?? 41.3 ??Low?? 02/25/23?? 34.3 ??Low?? MCV?? 03/23/23 11:10?? 92.6?? 02/25/23?? 92.0?? MCH?? 03/23/23 11:10?? 32.3 ??High?? 02/25/23?? 32.4 ??High?? MCHC?? 03/23/23 11:10?? 34.9?? 02/25/23?? 35.3?? RDW-CV?? 03/23/23 11:10?? 14.0?? 02/25/23?? 13.5?? Platelets?? 03/23/23 11:10?? 171?? 02/25/23?? 96 ??Low?? MPV?? 03/23/23 11:10?? 10.3?? 02/25/23?? 10.5 ??High?? Neutro Auto?? 03/23/23 11:10?? 82.7 ??High?? 02/25/23?? 67.7?? Lymph Auto?? 03/23/23 11:10?? 8.5 ??Low?? 02/25/23?? 19.9 ??Low?? Prowers Auto?? 03/23/23 11:10?? 7.8?? 02/25/23?? 10.0 ??High?? Eos, Auto?? 03/23/23 11:10?? 0.10?? 02/25/23?? 1.30?? Basophil Auto?? 03/23/23 11:10?? 0.1?? 02/25/23?? 0.4?? Imm Gran Auto?? 03/23/23 11:10?? 0.8 ??High?? 02/25/23?? 0.7 ??High?? Neutro Absolute?? 03/23/23 11:10?? 11.5 ??High?? 02/25/23?? 4.7?? Lymph Absolute?? 03/23/23 11:10?? 1.2?? 02/25/23?? 1.4?? Prowers Absolute?? 03/23/23 11:10?? 1.1 ??High?? 02/25/23?? 0.7 ??High?? Eos Absolute?? 03/23/23 11:10?? 0.0?? 02/25/23?? 0.1?? Baso Absolute?? 03/23/23 11:10?? 0.0?? 02/25/23?? 0.0?? Imm Gran Absolute?? 03/23/23 11:10?? 0.11?? 02/25/23?? 0.05?? Slide Review?? 03/23/23 11:10?? Not Indicated?? 02/25/23?? Morph Only? Routine Chemistry?? LATEST RESULTS?? HISTORICAL RESULTS?? Sodium Level?? 03/23/23 11:10?? 135?? 02/26/23?? 131 ??Low?? Potassium Level?? 03/23/23 11:10?? 2.6 ??Critical?? 02/26/23?? 3.2 ??Low?? Chloride Level?? 03/23/23 11:10?? 93 ??Low?? 02/26/23?? 102?? CO2?? 03/23/23 11:10?? 26?? 02/26/23?? 23?? Alk Phos?? 03/23/23 11:10?? 129?? 02/26/23?? 146 ??High?? AST?? 03/23/23 11:10?? 48 ??High?? 02/26/23?? 84 ??High?? ALT?? 03/23/23 11:10?? 30?? 02/26/23?? 85 ??High?? BUN?? 03/23/23 11:10?? 10?? 02/26/23?? 6 ??Low?? Glucose Level?? 03/23/23 11:10?? 101?? 02/26/23?? 119 ??High?? Creatinine Level?? 03/23/23 11:10?? 0.94?? 02/26/23?? 0.61?? BUN/Creat Ratio?? 03/23/23 11:10?? 10.6?? 02/26/23?? 9.8?? eGFR CKD-EPI?? 03/23/23 11:10?? 91?? 02/26/23?? 108?? Calcium Level?? 03/23/23 11:10?? 8.8 ??Low?? 02/26/23?? 8.2 ??Low?? Protein Total?? 03/23/23 11:10?? 6.6?? 02/26/23?? 4.9 ??Low?? Albumin Level?? 03/23/23 11:10?? 3.5?? 02/26/23?? 2.5 ??Low?? Globulin?? 03/23/23 11:10?? 3.1?? 02/26/23?? 2.4?? A/G Ratio?? 03/23/23 11:10?? 1.1?? 02/26/23?? 1.0?? Bilirubin Total?? 03/23/23 11:10?? 2.6 ??High?? 02/26/23?? 1.4 ??High?? Anion Gap?? 03/23/23 11:10?? 16.0 ??High?? 02/26/23?? 6.0?? Lipase Level?? 03/23/23 11:10?? 27? Osmolality?? 03/23/23 11:10?? 269 ??Low?? 02/26/23?? 261 ??Low? Serum Toxicology?? LATEST RESULTS?? HISTORICAL RESULTS?? Ethanol Level?? 03/23/23 11:10?? See Comment?? 02/23/23?? See Comment?? Instr Ethanol Lvl?? 03/23/23 11:10?? <5?? 02/23/23?? <5? UA Macroscopic?? LATEST RESULTS?? Urine Srce?? 03/23/23 13:20?? Clean Catch?? UA Color?? 03/23/23 13:20?? Yellow?? UA Appear?? 03/23/23 13:20?? Clear?? UA Glucose?? 03/23/23 13:20?? Negative?? UA Bili?? 03/23/23 13:20?? Negative?? UA Ketones?? 03/23/23 13:20?? Negative?? UA Spec Grav?? 03/23/23 13:20?? <=1.005?? UA Blood?? 03/23/23 13:20?? Negative?? UA pH?? 03/23/23 13:20?? 7.50?? UA Protein?? 03/23/23 13:20?? Negative?? UA Urobilinogen?? 03/23/23 13:20?? 1.0 Abnormal?? UA Nitrite?? 03/23/23 13:20?? Negative?? UA Leuk Est?? 03/23/23 13:20?? Negative? Electronically Signed on 03/23/23 04:04 PM SHAQUILLE Chow Nutrition and dietetics Progress note * Kenzie Brown: PERFORM Event Display: Nutrition Note Authored Date: [id number] Assessment and Monitoring ?? Reason for Referral:??nutrition ricky score probable poor ?? Usual Body Weight: 158# Weight Change: -24#, 15%- unclear timeline. though weight from last admission 62kg in February Skin: intact Edema: Chewing/Swallowing: GI: Eating Habits at Home: ? Nutrition Assessment: ?? 62 yo M admit with epigastric pain, vomiting. PMH significant for alcohol abuse and tachycardia. Noted w/ low K+ and Mg+- on IV supplement??with improvement. says having some difficulty swallowing d/t vomiting so much last week. eating??regular consistency, just??eating slowly and??upright. having a good appetite right now. reports weight loss ~24#- unclear timelines. says he stopped drinking andthat's when he lost weight since he wasn't consuming all those extra calories. Enc good protein intakes. ??did have a couple protein shakes. wanted to??have regular diet but continue heart healthy- was having some high BPs. Also, wanted to have??romero cheeseburger, fries, cake- with all that at once I think would be too much so having the restriction may be??better- still eating and says foods isgood that he's received. ? Monitor/Evaluation:?? Nutrition Goals POs?? >75% of meals Lytes WNL skin intact No s/sx aspiration Nutrition Interventions Heart healthy diet protein shakes prn eating HOB >30 degrees Anthropometrics/Estimated Needs Ujayya43.300 kg(Recorded: 03/23/2023 17:51 EDT) Oxzlbm311.000 cm(Recorded: 03/23/2023 17:51 EDT) Body Mass Index22.520 kg/m2(Recorded: 03/23/2023 17:51 EDT) Estimated Energy Needs: 1525-1830kcal (25-30kcal/kg actual BW) Estimated Fluid Needs: 1525-1830ml (1ml/kcal) Estimated Protein Needs: 61-79g (1.0-1.3g/kg actual BW) Reason for Visit Epigastric pain, vomiting Problem List/Past Medical History Ongoing Alcohol use with withdrawal Historical No qualifying data Social History Alcohol Past, Beer, Liquor, Several times per day- Comments: Honey burboun 1L a day, 6-8 beers. The last drink was on february 27. Electronic Cigarette/Vaping Electronic Cigarette Use: Never. Home/Environment Lives with Alone. Living situation: Home/Independent. Tobacco Current everyday tobacco user Tobacco Use:. 1/3 pack a day per day. Diet Orders Diet Order, 03/23/23 17:46:00 EDT, Heart Healthy Allergies Cats Nutrition Lab Results Test Name Test Result Date/Time WBC 7.9 K/mcL 03/24/2023 06:04 EDT Hgb 11.9 g/dL 03/24/2023 06:04 EDT Hct 35.5 % 03/24/2023 06:04 EDT MCV 96.2 fL 03/24/2023 06:04 EDT Platelets 113 K/mcL 03/24/2023 06:04 EDT Sodium Level 137 mmol/L 03/24/2023 06:04 EDT Potassium Level 3.2 mmol/L 03/24/2023 06:04 EDT Chloride Level 105 mmol/L 03/24/2023 06:04 EDT CO2 23 mmol/L 03/24/2023 06:04 EDT Alk Phos 129 IntlUnit/L 03/23/2023 11:10 EDT ALT 30 IntlUnit/L 03/23/2023 11:10 EDT BUN 8 mg/dL 03/24/2023 06:04 EDT Glucose Level 85 mg/dL 03/24/2023 06:04 EDT Creatinine Level 0.81 mg/dL 03/24/2023 06:04 EDT Albumin Level 3.5 g/dL 03/23/2023 11:10 EDT Bilirubin Total 2.6 mg/dL 03/23/2023 11:10 EDT Magnesium Level 2.0 mg/dL 03/24/2023 06:04 EDT Medications Inpatient calcium (as carbonate) 500 mg oral tablet, 500 mg= 1 tab, Oral, QID(ACHS), PRN folic acid, 1 mg= 1 tab, Oral, Daily Lactated Ringers Injection 1,000 mL, 1000 mL, IV LORazepam, 2 mg= 1 mL, IV Push, every 1 hr, PRN Metoprolol Tartrate, 25 mg= 1 tab, Oral, BID nicotine 21 mg/24 hr Transderm ER Film, 1 patches, TD, every 24 hr Nicotine Patch Removal, 1 EA, TD, every 24 hr ondansetron, 4 mg= 2 mL, IV Push, every 6 hr, PRN pantoprazole, 40 mg= 1 tab, Oral, BID sertraline, 50 mg= 1 tab, Oral, every morning thiamine, 100 mg= 1 tab, Oral, Daily Home albuterol 90 mcg/inh aerosol inhaler, 2 puffs, Inhale, every 4 hr, PRN folic acid 0.4 mg oral tablet, 0.4 mg= 1 tab, Oral, Daily hydrOXYzine hydrochloride 50 mg oral tablet, 50 mg= 1 tab, Oral, TID, PRN ibuprofen 200 mg oral tablet, 400 mg= 2 tab, Oral, every 4 hr, PRN loratadine 10 mg oral tablet, 10 mg= 1 tab, Oral, Daily, PRN magnesium oxide 400 mg (241.3 mg elemental magnesium) oral tablet, 400 mg= 1 tab, Oral, BID Metoprolol Tartrate 25 mg oral tablet, 25 mg= 1 tab, Oral, BID naltrexone 50 mg oral tablet, 50 mg= 1 tab, Oral, Daily pantoprazole 40 mg oral delayed release tablet, 40 mg= 1 tab, Oral, every morning potassium chloride 20 mEq oral tablet, extended release, 20 mEq= 1 tab, Oral, BID Seroquel 50 mg oral tablet, 50 mg= 1 tab, Oral, every night at bedtime sertraline 100 mg oral tablet, 100 mg= 1 tab, Oral, Daily thiamine 100 mg oral tablet, 100 mg= 1 tab, Oral, Daily Vitamin D3 2000 intl units oral capsule, 50 mcg= 1 cap, Oral, every morning Electronically Signed on 03/24/23 02:50 PM Kenzie Brown Progress note * John Grajeda MD: PERFORM Event Display: Progress Note - Physician Authored Date: [id number] MATT JOSE MARIA D :1960 Age:62 years Sex:Male Visit Date:03/23/2023 Primary Care Physician: Cheli Gupta APRN Subjective Patient feels??like his appetite is getting better Review of Systems Constitutional:??No fevers, chills, sweats ENT:??No ear pain, nasal congestion, sore throat Respiratory:??No shortness of breath, cough Cardiovascular:??No Chest pain, palpitations, syncope Gastrointestinal: No more diarrhea, no abdominal pain, some dyspepsia Genitourinary:??No hematuria Musculoskeletal:??No back pain, neck pain, joint pain, muscle pain, decreased range of motion Neurologic:??Alert & oriented X 4 ?? Objective Vitals & Measurements T:??36.6?C ??(Temporal Artery)?? TMIN:??36.4?C ??(Tympanic)?? TMAX:??36.7?C ??(TemporalArtery)?? HR:??95??(Peripheral)?? RR:??18?? BP:??139/94?? SpO2:??98%?? HT:??165.000??cm?? WT:??61.300??kg?? WT:??61.300??kg?? BMI:??22.520?? Pain Score:??8?? O2 Therapy:??Room air?? Physical Exam General: Oriented x4,??groomed and usual, still tremulous but better.?? HENT: No sign of trauma..?? Lungs:??Clear to auscultation and percussion, non-labored respiration.?? Heart:??Normal rate, regular rhythm, no murmur, gallop or edema. Abdomen: Benign abdominal exam in all 9 quadrants??with good bowel sounds.?? Musculoskeletal:??Normal range of motion and strength, no tenderness or swelling. Skin:??Skin is warm, dry and pink, no rashes or lesions. Neurologic: Cranial nerves are??intact, no focal signs, tremulous. Lab Results Labs??(Last four charted values) WBC ?7.9?(MAR 24)?H??13.9?(MAR 23) Hgb ?L??11.9?(MAR 24)?14.4?(MAR 23) Hct ?L??35.5?(MAR 24)?L??41.3?(MAR 23) Plt ?L??113?(MAR 24)?171?(MAR 23) Na ?137?(MAR 24)?135?(MAR 23) K ?L??3.2?(MAR 24)?L??3.3?(MAR 23)?C??2.6?(MAR 23) CO2 ?23?(MAR 24)?26?(MAR 23) Cr ?0.81?(MAR 24)?0.94?(MAR 23) BUN ?8?(MAR 24)?10?(MAR 23) Glucose Random ?85?(MAR 24)?101?(MAR 23) Assessment/Plan 1.??Diarrhea??R19.7 Self-limited. ??Stool studies are pending but may not be completed. 2.??Hypokalemia??E87.6 Fully resolved, potassium this morning. 3.??Epigastric pain??R10.13 Secondary to retching. ??No??hematemesis fortunately, esophagitis post retching??with a probable baseline of possible esophagitis and gastritis.?? PPI.?? Calcium carbonate. ??Should self-limited. 4.??Alcohol abuse??F10.10 Still concerned he may be drinking but I will have to take him in the face value. ??A little concerned??elevated and the tremors. 5.??Status post alcohol detoxification??Z92.89 He has not scored he had a detox protocol to maintain it. 6.??Tachycardia??R00.0 Resolved. ??On home meds. 7.??Hypomagnesemia??E83.42 Magnesium is within normal limits. ?? Time spent on patient care today is 40 minutes. Orders: calcium (as carbonate) 500 mg oral tablet, 500 mg = 1 tab, Oral, Tab-Chew, QID(ACHS) for 30 days, PRN dyspepsia, First Dose: 03/24/23 9:13:00 EDT, Stop Date: 04/23/23 9:12:00 EDT, Physician Stop, Routine folic acid, 1 mg = 1 tab, Oral, Tab, Daily, First Dose: 03/24/23 9:00:00 EDT, Routine Lactated Ringers Injection 1,000 mL, Total Volume (mL): 1,000, 1,000 mL, Soln- IV, IV, 75 mL/hr, Order Duration: 30 days, Start Date: 03/24/23 9:16:00 EDT, Stop Date: 04/23/23 9:15:00 EDT, 61.3 kg, Populate Charting Weight From Order, 1.68, m2 LORazepam, 2 mg = 1 mL, IV Push, Injection, every 1 hr, PRN symptoms of alcohol withdrawal, First Dose: 03/23/23 17:13:00 EDT, Routine Metoprolol Tartrate, 25 mg = 1 tab, Oral, Tab, BID, First Dose: 03/23/23 17:19:00 EDT, Routine pantoprazole, 40 mg = 1 tab, Oral, Tab-DR, BID, First Dose: 03/23/23 21:00:00 EDT, Routine potassium chloride, 10 mEq = 100 mL, IV Piggyback, Injection, every 2 hr for 2 doses, Administer over: 60 minutes, First Dose: 03/24/23 10:00:00 EDT, Stop Date: 03/24/23 13:59:00 EDT, Physician Stop,Routine, 100 mL/hr sertraline, 50 mg = 1 tab, Oral, Tab, every morning, First Dose: 03/24/23 9:00:00 EDT, Routine thiamine, 100 mg = 1 tab, Oral, Tab, Daily for 5 days, First Dose: 03/24/23 9:00:00 EDT, Stop Date:03/29/23 8:59:00 EDT, Physician Stop, Routine Basic Metabolic Panel, Blood, Routine, 03/23/23 17:17:00 EDT, every morning, Nurse collect Cardiac Monitoring, 03/23/23 17:13:00 EDT CBC w/ Diff, Blood, Routine, 03/23/23 17:18:00 EDT, every morning, Nurse collect Clinical [place] Withdrawal Assessment of Alcohol Scale, Revised (CIWA-Ar), 03/23/23 17:13:00 EDT, Constant order Diet Order, 03/23/23 17:46:00 EDT, Heart Healthy Magnesium Level, Blood, Stat, 03/23/23 17:18:00 EDT, every morning, Nurse collect Notify Provider, 03/23/23 17:13:00 EDT, Constant order, of seizure activity, severe hallucincationsor delusions, or CIWA score of 19 or above Notify Provider of Vital Signs, 03/23/23 17:13:00 EDT, T > 38.3, HR > 110, Constant Indicator PSO Admit to Inpatient, [facility], Inpatient, 03/24/23 9:15:00 EDT, 03/24/23 9:15:00 EDT, 03/24/23 9:15:00 EDT, Less than 96 hours Resuscitation Status, 03/23/23 17:46:00 EDT, Full Code Vital Signs, 03/23/23 17:13:00 EDT, Constant order, Assess on admission, q1h after each dose of medication until CIWA is less than 8 while awake, and q4h if CIWA is less than 8 x 24 hours while awake Electronically Signed on 03/24/23 09:23 AM John Grajeda MD History and physical note * John Grajeda MD: PERFORM, MODIFY Event Display: History and Physical Authored Date: [id number] JOSE MARIA GUTIERREZ Catherine :1960 Age:62 years Sex:Male Visit Date:03/23/2023 Primary Care Physician: Cheli Gupta APRN Chief Complaint Epigastric pain, vomiting History of Present Illness This is a 62-year-old male very familiar with.?? His past medical history mostly is significant foralcohol abuse and the many other things have come with it. ??He does have depression on sertraline. ?? I believe he does have elements of his sinus tachycardia, echocardiogram nonrevealing, on metoprolol, but hard to differentiate from his many times of alcohol detoxification. ?? The patient was here recently and is on a??Precedex drip for severe alcohol detox. ??He says he is not drinking since??but and reinterview and seems a little more questionable. ??Further that his ASTis elevated, he is shaky. ?? The patient comes in with??4 days of what he considers a GI bug. ??He had nausea, vomiting. ??He has had no new foods. ??No new travel. ??No new sick contacts. ?? He had no melena, no hematochezia, no hematemesis. ??Occasionally dry heaves only. ?? However, the patient stated this self-limited but??he had??pain in the epigastrium, he feel like hetore a muscle??from all the retching. ??He then came to the emergency room for such. ?? In the emergency room CT abdomen pelvis was negative.?? Laboratory values were nonrevealing with exception of mild leukocytosis and as stated elevated AST.?? More notably, secondary to??diarrhea, vomiting, he had hypokalemia and??hypomagnesia. ?? Attempts for replenishment of potassium??likely elements of vomitus.?? At that point it was clear that he would not be able to have oral potassium easily and thus the hospitalist service was called for admission. ?? I asked for magnesium as I am replenishing. ??Replenishing his potassium in his IV fluid and??IV.?? I am also concerned about a potential detox. ??Stool studies sent most likely to no avail. Review of Systems Constitutional: No fever,??nausea vomiting that is self-limited without any significant constitutional symptoms now ENT:??No ear pain, nasal congestion, sore throat Respiratory:??No shortness of breath, cough Cardiovascular:??No Chest pain, palpitations, syncope Gastrointestinal: No hematochezia, no melena,??no vomitus with hemoptysis.?? Nausea and vomiting have self-limited.?? But??abdominal discomfort, question care??in the??right??epigastrium. Genitourinary:??No hematuria Musculoskeletal:??No back pain, neck pain, joint pain, muscle pain, decreased range of motion Neurologic: Tremors ?? Physical Exam Vitals & Measurements T:??36.7?C ??(Temporal Artery)?? TMIN:??36.4?C ??(Tympanic)?? TMAX:??36.7?C ??(TemporalArtery)?? HR:??100??(Peripheral)?? RR:??22?? BP:??143/97?? SpO2:??98%?? HT:??165.000??cm?? WT:??61.300??kg?? WT:??61.300??kg?? BMI:??22.520?? Pain Score:??8?? General: Oriented x4, pleasant, looks well groomed but extremely tremulous..?? HENT: [Normocephalic, clear tympanic membranes, normal hearing, moist oral mucosa, no scleral icterus, no sinus tenderness].?? Lungs: [Clear to auscultation and percussion, non-labored respiration].?? Heart: Mild tachycardia. Abdomen: Bowel sounds are good, benign abdominal exam..?? Musculoskeletal: [Normal range of motion and strength, no tenderness or swelling]. Skin: [Skin is warm, dry and pink, no rashes or lesions]. Neurologic: Cranial nerves II to XII are intact. ??Strength, sensation, reflexes are even and intact his upper and lower extremities. ??Coordination intact from thumb to fingers. ??But all of this is??noted with extreme tremulousness. ? Assessment/Plan 1.??Diarrhea??R19.7 Seems to be self-limiting, stool studies. ??IV fluid. 2.??Hypokalemia??E87.6 Secondary to above, replenished magnesium, potassium replenished. ??Repeat at this evening. 3.??Epigastric pain??R10.13 Seems to be from retching, may be some element of GERD. ??PPI, negative exam,??negative imaging. 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 ??Hopefully that is the case. 5.??Status post alcohol detoxification??Z92.89 I am concerned about some of the alcohol detox. ??He looks quite tremulous which cannot be baseline. ??His AST is elevated. ??Aggressive detox protocol. 6.??Tachycardia??R00.0 There may be a baseline sinus tachycardia, echocardiogram nonrevealing, on metoprolol which she didnot take this morning. ??Is hard to separate from alcohol detox and many of his visits. 7.??Hypomagnesemia??E83.42 Replenish,??recheck in the morning. ??This will aid in replenishing potassium. ?? Time spent??on patient care today is 60 minutes. Orders: folic acid, 1 mg = 1 tab, Oral, Tab, Daily, First Dose: 03/24/23 9:00:00 EDT, Routine LORazepam, 2 mg = 1 mL, IV Push, Injection, every 1 hr, PRN symptoms of alcohol withdrawal, First Dose: 03/23/23 17:13:00 EDT, Routine magnesium sulfate, 2 g = 50 mL, IV Piggyback, Injection, Once, Administer over: 1 hr, First Dose: 03/23/23 21:00:00 EDT, Stop Date: 03/23/23 21:00:00 EDT, Physician Stop, Routine, 50 mL/hr Metoprolol Tartrate, 25 mg = 1 tab, Oral, Tab, BID, First Dose: 03/23/23 17:19:00 EDT, Routine pantoprazole, 40 mg = 1 tab, Oral, Tab-DR, BID, First Dose: 03/23/23 21:00:00 EDT, Routine sertraline, 50 mg = 1 tab, Oral, Tab, every morning, First Dose: 03/24/23 9:00:00 EDT, Routine thiamine, 100 mg = 1 tab, Oral, Tab, Daily for 5 days, First Dose: 03/24/23 9:00:00 EDT, Stop Date:03/29/23 8:59:00 EDT, Physician Stop, Routine Basic Metabolic Panel, Blood, Routine, 03/23/23 17:17:00 EDT, every morning, Nurse collect Cardiac Monitoring, 03/23/23 17:13:00 EDT CBC w/ Diff, Blood, Routine, 03/23/23 17:18:00 EDT, every morning, Nurse collect Clinical [place] Withdrawal Assessment of Alcohol Scale, Revised (CIWA-Ar), 03/23/23 17:13:00 EDT, Constant order Diet Order, 03/23/23 17:46:00 EDT, Heart Healthy Magnesium Level, Blood, Stat, 03/23/23 17:18:00 EDT, every morning, Nurse collect Notify Provider, 03/23/23 17:13:00 EDT, Constant order, of seizure activity, severe hallucincationsor delusions, or CIWA score of 19 or above Notify Provider of Vital Signs, 03/23/23 17:13:00 EDT, T > 38.3, HR > 110, Constant Indicator Potassium Level, Blood, Stat, 03/23/23 20:00:00 EDT, Once, Nurse collect PSO Place in Observation, Observation, Observation, 03/23/23 17:13:00 EDT, 03/23/23 17:13:00 EDT, 03/23/23 17:13:00 EDT, 1 midnight or less Resuscitation Status, 03/23/23 17:46:00 EDT, Full Code Vital Signs, 03/23/23 17:13:00 EDT, Constant order, Assess on admission, q1h after each dose of medication until CIWA is less than 8 while awake, and q4h if CIWA is less than 8 x 24 hours while awake Problem List/Past Medical History Ongoing Alcohol use with withdrawal Historical No qualifying data Medications Inpatient folic acid, 1 mg= 1 tab, Oral, Daily LORazepam, 2 mg= 1 mL, IV Push, every 1 hr, PRN magnesium sulfate, 2 g= 50 mL, IV Piggyback, Once Metoprolol Tartrate, 25 mg= 1 tab, Oral, BID ondansetron, 4 mg= 2 mL, IV Push, every 6 hr, PRN pantoprazole, 40 mg= 1 tab, Oral, BID potassium chloride, 10 mEq= 100 mL, IV Piggyback, Daily potassium chloride, 40 mEq= 2 tab, Oral, Daily sertraline, 50 mg= 1 tab, Oral, every morning thiamine, 100 mg= 1 tab, Oral, Daily Home folic acid 0.4 mg oral tablet, 0.4 mg= 1 tab, Oral, Daily hydrOXYzine hydrochloride 50 mg oral tablet, 50 mg= 1 tab, Oral, TID, PRN ibuprofen 200 mg oral tablet, 400 mg= 2 tab, Oral, every 4 hr, PRN magnesium oxide 400 mg (241.3 mg elemental magnesium) oral tablet, 400 mg= 1 tab, Oral, BID Metoprolol Tartrate 25 mg oral tablet, 25 mg= 1 tab, Oral, BID pantoprazole 40 mg oral delayed release tablet, 40 mg= 1 tab, Oral, every morning potassium chloride 20 mEq oral tablet, extended release, 20 mEq= 1 tab, Oral, BID Seroquel 50 mg oral tablet, 50 mg= 1 tab, Oral, Daily sertraline 50 mg oral tablet, 50 mg= 1 tab, Oral, every morning thiamine 100 mg oral tablet, 100 mg= 1 tab, Oral, Daily Vitamin D3 2000 intl units oral capsule, 50 mcg= 1 cap, Oral, every morning Allergies Cats Social History Alcohol Past, Beer, Liquor, Several times per day- Comments: Honey burboun 1L a day, 6-8 beers. The last drink was on february 27. Electronic Cigarette/Vaping Electronic Cigarette Use: Never. Home/Environment Lives with Alone. Living situation: Home/Independent. Tobacco Current everyday tobacco user Tobacco Use:. 1/3 pack a day per day. Lab Results Test Name Test Result Date/Time WBC 13.9 K/mcL 03/23/2023 11:10 EDT RBC 4.46 Million/mcL 03/23/2023 11:10 EDT Hgb 14.4 g/dL 03/23/2023 11:10 EDT Hct 41.3 % 03/23/2023 11:10 EDT MCV 92.6 fL 03/23/2023 11:10 EDT MCH 32.3 pg 03/23/2023 11:10 EDT MCHC 34.9 g/dL 03/23/2023 11:10 EDT RDW-CV 14.0 % 03/23/2023 11:10 EDT Platelets 171 K/mcL 03/23/2023 11:10 EDT MPV 10.3 fL 03/23/2023 11:10 EDT Neutro Auto 82.7 % 03/23/2023 11:10 EDT Lymph Auto 8.5 % 03/23/2023 11:10 EDT [place] Auto 7.8 % 03/23/2023 11:10 EDT Eos, Auto 0.10 % 03/23/2023 11:10 EDT Basophil Auto 0.1 % 03/23/2023 11:10 EDT Imm Gran Auto 0.8 % 03/23/2023 11:10 EDT Neutro Absolute 11.5 K/mcL 03/23/2023 11:10 EDT Lymph Absolute 1.2 K/mcL 03/23/2023 11:10 EDT [place] Absolute 1.1 K/mcL 03/23/2023 11:10 EDT Eos Absolute 0.0 K/mcL 03/23/2023 11:10 EDT Baso Absolute 0.0 K/mcL 03/23/2023 11:10 EDT Imm Gran Absolute 0.11 03/23/2023 11:10 EDT Slide Review Not Indicated 03/23/2023 11:10 EDT Sodium Level 135 mmol/L 03/23/2023 11:10 EDT Potassium Level 2.6 mmol/L 03/23/2023 11:10 EDT Chloride Level 93 mmol/L 03/23/2023 11:10 EDT CO2 26 mmol/L 03/23/2023 11:10 EDT Alk Phos 129 IntlUnit/L 03/23/2023 11:10 EDT AST 48 IntlUnit/L 03/23/2023 11:10 EDT ALT 30 IntlUnit/L 03/23/2023 11:10 EDT BUN 10 mg/dL 03/23/2023 11:10 EDT Glucose Level 101 mg/dL 03/23/2023 11:10 EDT Creatinine Level 0.94 mg/dL 03/23/2023 11:10 EDT BUN/Creat Ratio 10.6 03/23/2023 11:10 EDT eGFR CKD-EPI 91 mL/min/1.73 m2 03/23/2023 11:10 EDT Calcium Level 8.8 mg/dL 03/23/2023 11:10 EDT Protein Total 6.6 g/dL 03/23/2023 11:10 EDT Albumin Level 3.5 g/dL 03/23/2023 11:10 EDT Globulin 3.1 03/23/2023 11:10 EDT A/G Ratio 1.1 03/23/2023 11:10 EDT Bilirubin Total 2.6 mg/dL 03/23/2023 11:10 EDT Anion Gap 16.0 03/23/2023 11:10 EDT Lipase Level 27 unit/L 03/23/2023 11:10 EDT Magnesium Level 1.4 mg/dL 03/23/2023 11:10 EDT Osmolality 269 mOsm/kg 03/23/2023 11:10 EDT Ethanol Level See Comment 03/23/2023 11:10 EDT Instr Ethanol Lvl <5 mg/dL 03/23/2023 11:10 EDT Urine Srce Clean Catch 03/23/2023 13:20 EDT UA Color YELLOW. 03/23/2023 13:20 EDT UA Appear CLEAR. 03/23/2023 13:20 EDT UA Glucose NEGATIVE 03/23/2023 13:20 EDT UA Bili NEGATIVE 03/23/2023 13:20 EDT UA Ketones NEGATIVE 03/23/2023 13:20 EDT UA Spec Grav <=1.005 03/23/2023 13:20 EDT UA Blood NEGATIVE 03/23/2023 13:20 EDT UA pH 7.50 03/23/2023 13:20 EDT UA Protein NEGATIVE 03/23/2023 13:20 EDT UA Urobilinogen 1.0 03/23/2023 13:20 EDT UA Nitrite NEGATIVE 03/23/2023 13:20 EDT UA Leuk Est NEGATIVE 03/23/2023 13:20 EDT Adenovirus F 40/41 GIP-BFire Not Detected BF 03/23/2023 18:18 EDT Astrovirus GIP-BFire Not Detect-BioFire 03/23/2023 18:18 EDT Cyclospora cayetanensis GIP-BFire Not Detect-BioFire 03/23/2023 18:18 EDT Clostridioides difficile toxin A/B -BFir Not Detect-BioFire 03/23/2023 18:18 EDT Campylobacter GIP-BFire Not Detect-BioFire 03/23/2023 18:18 EDT Cryptosporidium GIP-BFire Not Detect-BioFire 03/23/2023 18:18 EDT E. coli O157 GIP-BFire N/A 03/23/2023 18:18 EDT Entamoeba histolytica GIP-BFire Not Detect-BioFire 03/23/2023 18:18 EDT Enteroaggregative E. coli GIP-BFire Not Detect-BioFire 03/23/2023 18:18 EDT Enteropathogenic E. coli GIP-BFire Not Detect-BioFire 03/23/2023 18:18 EDT Enterotoxige E. coli LT/ST GIP-BFire Not Detect-BioFire 03/23/2023 18:18 EDT Giardia lamblia GIP-BFire Not Detect-BioFire 03/23/2023 18:18 EDT Norovirus GI/GII GIP-BFire Not Detect-BioFire 03/23/2023 18:18 EDT Plesiomonas shigelloides GIP-BFire Not Detect-BioFire 03/23/2023 18:18 EDT Rotavirus A GIP-BioF Not Detect-BioFire 03/23/2023 18:18 EDT Salmonella GIP-BFire Not Detect-BioFire 03/23/2023 18:18 EDT Sapovirus GIP-BFire Not Detect-BioFire 03/23/2023 18:18 EDT Shiga-toxin1/2-prod E.coli GIP-BFire Not Detect-BioFire 03/23/2023 18:18 EDT Shigella/Enteroinv E. coli GIP-BFire Not Detect-BioFire 03/23/2023 18:18 EDT Vibrio cholerae GIP-BFire Not Detect-BioFire 03/23/2023 18:18 EDT Vibrio species GIP-BFire Not Detect-BioFire 03/23/2023 18:18 EDT Yersinia enterocolitica GIP-BFire Not Detect-BioFire 03/23/2023 18:18 EDT Electronically Signed on 03/23/23 08:29 PM John Grajeda MD Discharge summary * John Grajeda MD: PERFORM Event Display: Discharge Summary Authored Date: [id number] JOSE MARIA GUTIERREZ Catherine :1960 Age:62 years Sex:Male Visit Date:03/23/2023 Primary Care Physician: Cheli Gupta APRN Hospital Course This is a patient I am quite familiar with. ??He has a medical history that is mostly surrounded bysevere alcoholism. ?? He has had multiple visits to our hospital with alcohol detox. ??Sometimes he has had significant electrolyte abnormalities. ??His potassium tends always to run low. ?? Patient is quite adamant that he has not had a drink since March 01, and he seems consistent aboutthis. ??At first I was not so positive especially with the elevated AST??and his tremors, numbness still not 100% certain but he does look quite good right now, well-groomed, and continues to state that he has not had a drink since such. ?? The patient comes in after 3 days what seems like a GI bug. ??He had diarrhea, he felt green, he had nausea vomiting and retching. ??The retching eventually??became a burning with gave him some epigastric??esophagitis. ??Never had any hematochezia, melena, nor hemoptysis??or hematemesis.. ??Came [facility] emergency room with such and with a low potassium of 2.6. ?? As he was not able to??maintain his oral potassium, patient was admitted to the hospitalist service. ?? Over the last 2 days the patient has done quite well.?? He has been able to tolerate fluids and by this morning he is having large full breakfast, no vomiting, no nausea, he has not had diarrhea since he has been here, he has not but he is eager to go home. ?? This showed??last night of some element of psychosis??but he has not been sleeping??well he states,he is not on his Seroquel,??he feels perfectly fine does know I do not see it is part of a alcohol detox quality??as he has had no other??concerns for such. ??He is eager to go home, he had a good night sleep, looking forward to good night sleep and back on his regimen. ?? Despite the very good p.o. intake, his potassium is still low.?? Magnesium is within normal limits.??He is on magnesium supplementation. ??He will go home??on potassium supplementation and otherwisehis baseline medications. ?? He does have a sinus tachycardia that has been persistent, echocardiogram nonrevealing,??often related to stress, alcohol and hard to decipher??from which but he is on a beta-bong for such. ??He is about to take his beta-bong this morning and will leave when his heart rate is??once again??nontachycardic. Physical Exam Vitals & Measurements HR:??124??(Peripheral)?? RR:??18?? BP:??154/94?? SpO2:??99%?? Pain Score:??0?? Pain Score:??0?? O2 Therapy:??Room air?? General: Oriented x4, clean-shaven,??looking the best he has in quite some time..?? HENT:??Normocephalic, clear tympanic membranes, normal hearing, moist oral mucosa, no scleral icterus, no sinus tenderness.?? Lungs:??Clear to auscultation and percussion, non-labored respiration.?? Heart: Only mildly tachycardic at time of exam.. Abdomen:??Soft, non-tender, non-distended, normal bowel sounds, no masses.?? Musculoskeletal:??Normal range of motion and strength, no tenderness or swelling. Skin:??Skin is warm, dry and pink, no rashes or lesions. Neurologic: I do not see a tremor, cranial nerves II to XII intact. ??Strength, station, reflexes are even intact.?? He is quite put together??and eager to go. Medications Inpatient calcium (as carbonate) 500 mg oral tablet, 500 mg= 1 tab, Oral, QID(ACHS), PRN folic acid, 1 mg= 1 tab, Oral, Daily Lactated Ringers Injection 1,000 mL, 1000 mL, IV LORazepam, 2 mg= 1 mL, IV Push, every 1 hr, PRN Metoprolol Tartrate, 25 mg= 1 tab, Oral, BID nicotine 21 mg/24 hr Transderm ER Film, 1 patches, TD, every 24 hr Nicotine Patch Removal, 1 EA, TD, every 24 hr ondansetron, 4 mg= 2 mL, IV Push, every 6 hr, PRN pantoprazole, 40 mg= 1 tab, Oral, BID potassium chloride, 10 mEq= 100 mL, IV Piggyback, Once potassium chloride, 40 mEq= 2 tab, Oral, BID potassium chloride 20 mEq/15 mL oral liquid, 40 mEq= 30 mL, Oral, Once sertraline, 50 mg= 1 tab, Oral, every morning thiamine, 100 mg= 1 tab, Oral, Daily Home albuterol 90 mcg/inh aerosol inhaler, 2 puffs, Inhale, every 4 hr, PRN folic acid 0.4 mg oral tablet, 0.4 mg= 1 tab, Oral, Daily hydrOXYzine hydrochloride 50 mg oral tablet, 50 mg= 1 tab, Oral, TID, PRN ibuprofen 200 mg oral tablet, 400 mg= 2 tab, Oral, every 4 hr, PRN loratadine 10 mg oral tablet, 10 mg= 1 tab, Oral, Daily, PRN magnesium oxide 400 mg (241.3 mg elemental magnesium) oral tablet, 400 mg= 1 tab, Oral, BID Metoprolol Tartrate 25 mg oral tablet, 25 mg= 1 tab, Oral, BID naltrexone 50 mg oral tablet, 50 mg= 1 tab, Oral, Daily pantoprazole 40 mg oral delayed release tablet, 40 mg= 1 tab, Oral, every morning potassium chloride 20 mEq oral tablet, extended release, 40 mEq= 2 tab, Oral, BID Seroquel 50 mg oral tablet, 50 mg= 1 tab, Oral, every night at bedtime sertraline 100 mg oral tablet, 100 mg= 1 tab, Oral, Daily thiamine 100 mg oral tablet, 100 mg= 1 tab, Oral, Daily Vitamin D3 2000 intl units oral capsule, 50 mcg= 1 cap, Oral, every morning Social History Alcohol Past, Beer, Liquor, Several times per day- Comments: Honey burboun 1L a day, 6-8 beers. The last drink was on february 27. Electronic Cigarette/Vaping Electronic Cigarette Use: Never. Home/Environment Lives with Alone. Living situation: Home/Independent. Tobacco Current everyday tobacco user Tobacco Use:. 1/3 pack a day per day. Discharge Plan 1.??Diarrhea??R19.7 Self-limited before admission. 2.??Hypokalemia??E87.6 Chronic even with a relatively good diet. ??Continue outpatient supplementation. 3.??Epigastric pain??R10.13 No met emesis or concern for Boerhaave's tear. ??Most likely esophagitis from retching. ??Self-limited. ??Maintain PPI. 4.??Alcohol abuse??F10.10 I am starting to??think the patient may??have actually quit on March 01 which is very very good and I am happy for him. 5.??Status post alcohol detoxification??Z92.89 No episodes of significant alcohol detox.?? I do not think he is showing signs of detox. 6.??Tachycardia??R00.0 Baseline, often confused from stress and alcohol detox but on metoprolol, echocardiogram nonrevealing. 7.??Hypomagnesemia??E83.42 Maintain magnesium supplementation Orders: potassium chloride, 40 mEq = 2 tab, Oral, Tab-ER, BID for 30 days, First Dose: 03/25/23 21:00:00 EDT, Stop Date: 04/24/23 20:59:00 EDT, Physician Stop, Routine potassium chloride, 10 mEq = 100 mL, IV Piggyback, Injection, Once, Administer over: 60 minutes, First Dose: 03/25/23 11:00:00 EDT, Stop Date: 03/25/23 11:00:00 EDT, Physician Stop, Routine, 100 mL/hr potassium chloride 20 mEq oral tablet, extended release, 40 mEq = 2 tab, Oral, BID, # 60 tab, 0 Refill(s), Pharmacy: [id number], 165, cm, 03/23/23 18:02:00 EDT, Height/Length Dosing, 61.3, kg, 03/23/23 18:02:00 EDT, Weight Dosing potassium chloride 20 mEq/15 mL oral liquid, 40 mEq = 30 mL, Oral, Liquid, Once, First Dose: 03/25/23 11:00:00 EDT, Stop Date: 03/25/23 11:00:00 EDT, Physician Stop, Routine Discharge Patient, 03/25/23 10:36:00 EDT, Home Independently Potassium Level, Blood, Routine, 03/25/23 14:00:00 EDT, Once, Lab Collect All Diagnoses This Visit Diarrhea Hypokalemia Epigastric pain Alcohol abuse Status post alcohol detoxification Tachycardia Hypomagnesemia Patient Discharge Condition Stable. Discharge Disposition Home with PCP follow-up. ??Good night sleep, on home regimen,??continue??sobriety. ?? Time??spent on patient care today is 40 minutes. Patient Education Diarrhea, Adult Follow Up With When Contact Information Page Cheli SINGH Within 1 to 2 weeks [address] [place] [address]- Additional Instructions: Medication Reconciliation Changed QUEtiapine (Seroquel 50 mg oral tablet)1 tab Oral (given by mouth) every night at bedtime. ?? ibuprofen (ibuprofen 200 mg oral tablet)2 tab Oral (given by mouth) every 4 hours as needed as needed for pain. ?? potassium chloride (potassium chloride 20 mEq oral tablet, extended release)2 tab Oral (given by mouth) 2 times a day. Refills: 0. ?? sertraline (sertraline 100 mg oral tablet)1 tab Oral (given by mouth) every day. ?? Unchanged albuterol (albuterol 90 mcg/inh aerosol inhaler)2 Puffs Inhale (breathe in) every 4 hours as neededas needed for wheezing. ?? cholecalciferol (Vitamin D3 2000 intl units oral capsule)1 Capsules Oral (given by mouth) every morning. ?? folic acid (folic acid 0.4 mg oral tablet)1 tab Oral (given by mouth) every day. ?? hydrOXYzine (hydrOXYzine hydrochloride 50 mg oral tablet)1 tab Oral (given by mouth) 3 times a day as needed as needed for anxiety. ?? loratadine (loratadine 10 mg oral tablet)1 tab Oral (given by mouth) every day as needed as needed for allergy symptoms. ?? magnesium oxide (magnesium oxide 400 mg (241.3 mg elemental magnesium) oral tablet)1 tab Oral (given by mouth) 2 times a day. Refills: 0. ?? metoprolol (Metoprolol Tartrate 25 mg oral tablet)1 tab Oral (given by mouth) 2 times a day. Refills: 0. ?? naltrexone (naltrexone 50 mg oral tablet)1 tab Oral (given by mouth) every day. ?? pantoprazole (pantoprazole 40 mg oral delayed release tablet)1 tab Oral (given by mouth) every morning. ?? thiamine (thiamine 100 mg oral tablet)1 tab Oral (given by mouth) every day. Electronically Signed on 03/25/23 10:48 AM John Grajeda MD Patient Care team information Care Team Personnel Name: Cheli Gupta APRN Position: Physician Member Role: Primary Care Physician Address: Address: [address] [place] [id number] Name: Aarti Álvarez Position: Nurse Member Role: ED Nurse Name: SHAQUILLE Chow Position: Physician Member Role: Physician Address: Address: [address] [place] [id number] Care Team Related Persons Name: MELISSA BISHOP
--- OUTSIDE RECORDS SUMMARY | 2023-04-25 12:16 | XMS_ITS | Continuity of Care Document ---
Author Name Unknown Organization [facility] Address [address] [place] [address] Care Team Providers Care E Commerce Project Manager Name Role Phone Page Cheli SINGH Primary Care Physician Encounter [facility] FIN NBR [phone] Date(s): 10/20/22 - 10/21/22 [facility] [address], [place] [address] Encounter Diagnosis Alcohol use with withdrawal(Discharge Diagnosis) - 10/20/22 Hypertension(Discharge Diagnosis) - 10/21/22 Alcohol withdrawal(Discharge Diagnosis) - 10/21/22 Discharge Disposition: Home or Self Care Attending Physician: Slava Thompson APRN Admitting Physician: Slava Thompson APRN Allergies, Adverse Reactions, Alerts Substance Reaction Severity Status Cats Unknown Active Functional Status 10/21/22 Living Environment Living Situation: Ot her: snf community Current Home Treatments: Home Devices/Equipment Professional Skilled Services: Special Services and Community Resources: Sensory Deficits: Performed by: Jadiel Gipson-10/20/22 23:49:00 Lives In Apartment Lives With Alone Living Situation Other: snf co mmunity Home Barriers None Special Services and Community Resources Other: Referred by [facility] to [facility] for counselor. Number of Stairs Inside 0 10/21/22 Lunch Percent 100 10/21/22 ADLs Minimal assistance Breakfast Percent 95 10/21/22 Activity Status ADL Up to toilet Personal Care Provided Gown change 10/20/22 Family Member Travel History No recent t ravel Recent Travel History No recent travel Other exposure to Infectious Disease Non e Medications hydrOXYzine hydrochloride 50 mg oral tablet 50 mg = 1 tab, Oral, TID, PRN as needed for anxiety Start Date: 10/20/22 Status: Ordered losartan 50 mg oral tablet 50 mg = 1 tab, Oral, every morning Start Date: 10/20/22 Status: Ordered magnesium oxide 250 mg =, Oral, every morning Start Date: 10/21/22 Status: Ordered pantoprazole 40 mg oral delayed release tablet 40 mg = 1 tab, Oral, every morning Start Date: 10/20/22 Status: Ordered SEROquel 50 mg oral tablet 50 mg = 1 tab, Oral, every night at bedtime Start Date: 10/21/22 Status: Ordered sertraline 50 mg oral tablet 50 mg = 1 tab, Oral, every morning Start Date: 10/20/22 Status: Ordered thiamine 100 mg oral tablet 100 mg = 1 tab, Oral, Daily, 0 Refill(s) Start Date: 10/21/22 Status: Ordered Vitamin D3 2000 intl units oral capsule 50 mcg 1 cap, Oral, every morning Start Date: 10/21/22 Status: Ordered Mental Status 10/20/22 Eye Opening Response Wilfredo Spontaneous ly Best Verbal Response Wilfredo Oriented Best Motor Response [place] Obeys comman ds Wilfredo Coma Score 15 Problem List Condition Confirmation Course Effective Dates Status Health St atus Informant Alcohol use with withdrawal Confirmed Active Results Laboratory List Name Date Automated Diff 10/21/22 Basic Metabolic Panel (BMP) 10/21/22 CBC w/ Diff 10/21/22 Magnesium Level 10/21/22 SARS-CoV-2 (COVID-19) PCR (GeneXpert) (C OVID 19 (GeneXpert)) 10/20/22 Automated Diff 10/20/22 Alcohol Lvl 10/20/22 CBC w/ Diff 10/20/22 Comprehensive Metabolic Panel (CMP) Magnesium Level 10/20/22 PT/ INR 10/20/22 Troponin-I 10/20/22 Most recent to oldest [Reference Range]: 1 2 WBC [4.8-10.8 K/mcL] 9.5 K/mcL (10/21/22 6:18 AM) 9.8 K/mcL (10/20/22 8:30 PM) RBC [4.20-6.10 Million/mcL] 3.74 Million /mcL *LOW* (10/21/22 6:18 AM) 4.07 Million/mcL *LOW* (10/20/22 8:30 PM) Neutro Auto [42.2-75.2 %] 63.4 % (10/21/22 6:18 AM) 63.3 % (10/20/22 8:30 PM) Lymph Auto [20.5-51.1 %] 27.0 % (10/21/22 6:18 AM) 25.7 % (10/20/22 8:30 PM) Roseau Auto [1.7-9.3 %] 7.2 % (10/21/22 6:18 AM) 9.2 % (10/20/22 8:30 PM) Basophil Auto [0.0-0.8 %] 0.8 % (10/21/22 6:18 AM) 0.7 % (10/20/22 8:30 PM) Prothrombin Time [9.1-10.6 seconds] 9.3 seconds (10/20/22 8:30 PM) INR [0.9-1.1] 0.9 (10/20/22 8:30 PM) BUN [8-26 mg/dL] 15 mg/dL (10/21/22 6:18 AM) 18 mg/dL (10/20/22 8:30 PM) Glucose Level [74-106 mg/dL] 80 mg/dL (10/21/22 6:18 AM) 98 mg/dL (10/20/22 8:30 PM) Potassium Level [3.5-5.1 mmol/L] 3.6 mmo l/L (10/21/22 6:18 AM) 3.1 mmol/L *LOW* (10/20/22 8:30 PM) Baso Absolute [0.0-0.2 K/mcL] 0.1 K/mcL (10/21/22 6:18 AM) 0.1 K/mcL (10/20/22 8:30 PM) MCV [80.0-94.0 fL] 97.3 fL *HI* (10/21/22 6:18 AM) 96.8 fL *HI* (10/20/22 8:30 PM) AST [15-41 IntlUnit/L] 167 IntlUnit/L *HI* (10/20/22 8:30 PM) ALT [17-63 IntlUnit/L] 120 IntlUnit/L *HI* (10/20/22 8:30 PM) MCHC [32.0-36.0 g/dL] 34.6 g/dL (10/21/22 6:18 AM) 35.5 g/dL (10/20/22 8:30 PM) Osmolality [275-295 mOsm/kg] 272 mOsm/kg *LOW* (10/21/22 6:18 AM) 265 mOsm/kg *LOW* (10/20/22 8:30 PM) Troponin-I [<=0.05 ng/mL] 0.03 ng/mL (10/20/22 8:30 PM) Sodium Level [134-143 mmol/L] 136 mmol/L (10/21/22 6:18 AM) 131 mmol/L *LOW* (10/20/22 8:30 PM) Lymph Absolute [1.2-3.4 K/mcL] 2.6 K/mcL (10/21/22 6:18 AM) 2.5 K/mcL (10/20/22 8:30 PM) Hct [42.0-52.0 %] 36.4 % *LOW* (10/21/22 6:18 AM) 39.4 % *LOW* (10/20/22 8:30 PM) Calcium Level [8.9-10.3 mg/dL] 8.1 mg/dL *LOW* (10/21/22 6:18 AM) 8.6 mg/dL *LOW* (10/20/22 8:30 PM) Roseau Absolute [0.1-0.6 K/mcL] 0.7 K/mcL *HI* (10/21/22 6:18 AM) 0.9 K/mcL *HI* (10/20/22 8:30 PM) Albumin Level [3.5-5.0 g/dL] 3.5 g/dL (10/20/22 8:30 PM) Protein Total [6.5-8.1 g/dL] 6.7 g/dL (10/20/22 8:30 PM) MCH [27.0-31.0 pg] 33.7 pg *HI* (10/21/22 6:18 AM) 34.4 pg *HI* (10/20/22 8:30 PM) Magnesium Level [1.8-2.5 mg/dL] 2.3 mg/d L (10/21/22 6:18 AM) 2.2 mg/dL (10/20/22 8:30 PM) Neutro Absolute [1.4-6.5 K/mcL] 6.0 K/mc L (10/21/22 6:18 AM) 6.2 K/mcL (10/20/22 8:30 PM) Bilirubin Total [0.2-1.2 mg/dL] 3.2 mg/d L *HI* (10/20/22 8:30 PM) Hgb [14.0-18.0 g/dL] 12.6 g/dL *LOW* (10/21/22 6:18 AM) 14.0 g/dL (10/20/22 8:30 PM) Alk Phos [38-130 IntlUnit/L] 269 IntlUni t/L *HI* (10/20/22 8:30 PM) MPV [7.4-10.4 fL] 9.6 fL (10/21/22 6:18 AM) 10.1 fL (10/20/22 8:30 PM) Ethanol Level [0.00-0.08 g/dL] 0.01 g/dL (10/20/22 8:30 PM) Platelets [130-400 K/mcL] 207 K/mcL (10/21/22 6:18 AM) 290 K/mcL (10/20/22 8:30 PM) CO2 [22-32 mmol/L] 23 mmol/L (10/21/22 6:18 AM) 22 mmol/L (10/20/22 8:30 PM) Eos Absolute [0.0-0.2 K/mcL] 0.1 K/mcL (10/21/22 6:18 AM) 0.1 K/mcL (10/20/22 8:30 PM) Chloride Level [98-111 mmol/L] 104 mmol/ L (10/21/22 6:18 AM) 93 mmol/L *LOW* (10/20/22 8:30 PM) RDW-CV [11.5-14.5 %] 13.2 % (10/21/22 6:18 AM) 13.2 % (10/20/22 8:30 PM) A/G Ratio 1.1 *NA* (10/20/22 8:30 PM) BUN/Creat Ratio [8.0-20.0] 13.4 (10/21/22 6:18 AM) 11.8 (10/20/22 8:30 PM) Globulin 3.2 *NA* (10/20/22 8:30 PM) Imm Gran Absolute 0.04 *NA* (10/21/22 6:18 AM) 0.05 *NA* (10/20/22 8:30 PM) Imm Gran Auto [0.0-0.5 %] 0.4 % (10/21/22 6:18 AM) 0.5 % (10/20/22 8:30 PM) SARS-CoV-2 (COVID-19) PCR (G eneXpert) [Negative] Negative (10/20/22 11:35 PM) Creatinine Level [0.61-1.24 mg/dL] 1.12 mg/dL (10/21/22 6:18 AM) 1.52 mg/dL *HI* (10/20/22 8:30 PM) Employed in healthcare? No *NA* (10/20/22 11:35 PM) Symptomatic as defined by CDC? No *NA* (10/20/22 11:35 PM) Hospitalized due to COVID-19? No *NA* (10/20/22 11:35 PM) In ICU? No *NA* (10/20/22 11:35 PM) Group care resident? No *NA* (10/20/22 11:35 PM) status? Not *NA* (10/20/22 11:35 PM) Anion Gap [3.0-12.0] 9.0 (10/21/22 6:18 AM) 16.0 *HI* (10/20/22 8:30 PM) Eos, Auto [0.00-3.00 %] 1.20 % (10/21/22 6:18 AM) 0.60 % (10/20/22 8:30 PM) Instr Ethanol Lvl [<=5 mg/dL] 12 mg/dL *HI* (10/20/22 8:30 PM) eGFR CKD-EPI [>=60 mL/min/1.73 m2] 74 mL /min/1.73 m2 (10/21/22 6:18 AM) 51 mL/min/1.73 m2 *LOW* (10/20/22 8:30 PM) Vital Signs Most recent to oldest [Reference Range]: 1 2 3 Temperature Temporal Artery [36-38 Deg C] 36.4 Deg C (10/21/22 11:12 AM) 36.4 Deg C (10/21/22 10:15 AM) 36.3 Deg C (10/21/22 9:12 AM) Peripheral Pulse Rate [60-100 bpm] 108 bpm *HI* (10/20/22 8:50 PM) Heart Rate Monitored [60-100 bpm] 98 bpm (10/21/22 11:12 AM) 98 bpm (10/21/22 10:15 AM) 93 bpm (10/21/22 9:12 AM) Respiratory Rate [12-24 br/min] 17 br/min (10/21/22 11:12 AM) 16 br/min (10/21/22 10:15 AM) 16 br/min (10/21/22 9:12 AM) Blood Pressure [90-140/60-90 mmHg] 145/89mmHg *HI* (10/21/22 11:12 AM) 139/85mmHg (10/21/22 10:15 AM) 139/85mmHg (10/21/22 9:12 AM) Mean Arterial Pressure, Cuff [65-140 mmHg] 79 mmHg (10/20/22 11:38 PM) 85 mmHg (10/20/22 11:22 PM) Mean Arterial Pressure Cuff 78 mmHg (10/20/22 11:38 PM) 73 mmHg (10/20/22 10:00 PM) Blood Pressure Location Right arm (10/21/22 11:12 AM) Right arm (10/21/22 10:15 AM) Right arm (10/21/22 9:12 AM) Weight 62.800 kg (10/20/22 11:51 PM) 62.800 kg (10/20/22 11:48 PM) Weight Dosing 62.800 kg (10/20/22 11:48 PM) 72.57 kg (10/20/22 9:05 PM) Usual Weight 72 kg (10/20/22 11:51 PM) Weight Estimated 72.57 kg (10/20/22 8:50 PM) Height 165.000 cm (10/20/22 11:48 PM) Height/Length Dosing 165.000 cm (10/20/22 11:48 PM) 165.000 cm (10/20/22 9:05 PM) Body Mass Index 23.070 kg/m2 (10/20/22 11:48 PM) Height/Length Estimated 165.000 cm (10/20/22 8:50 PM) Social History Social History Type Response Tobacco Never tobacco user T obacco Use:. Sex Hospital Discharge Instructions Patient Education 10/21/2022 09:05:33 Alcohol Withdrawal Syndrome, Abwi-pi-[id number] Alcohol Withdrawal Syndrome When a person who drinks a lot of alcohol stops drinking, he or she may have unpleasant and serioussymptoms. These symptoms are called alcohol withdrawal syndrome. This condition may be mild or severe. It can be life-threatening. This condition can cause: ??? Shaking that you cannot control (tremor). ??? Sweating. ??? Headache. ??? Feeling fearful, upset, grouchy, or depressed. ??? Trouble sleeping (insomnia). ??? Nightmares. ??? Fast or uneven heartbeats (palpitations). ??? Alcohol cravings. ??? Feeling sick to your stomach (nausea). ??? Throwing up (vomiting). ??? Being bothered by light and sounds. ??? Confusion. ??? Trouble thinking clearly. ??? Not being hungry (loss of appetite). ??? Big changes in mood (mood swings). If you have all of the following symptoms at the same time, get help right away: ??? High blood pressure. ??? Fast heartbeat. ??? Trouble breathing. ??? Seizures. ??? Seeing, hearing, feeling, smelling, or tasting things that are not there (hallucinations). These symptoms are known as delirium tremens (DTs). They must be treated at the hospital right away. Follow these instructions at home: ??? Take bodd-npj-rmvwlve and prescription medicines only as told by your doctor. This includes vitamins. ??? Do not drink alcohol. ??? Do not drive until your doctor says that this is safe for you. ??? Have someone stay with you or be available in case you need help. This should be someone you trust. This person can help you with your symptoms. He or she can also help you to not drink. ??? Drink enough fluid to keep your pee (urine) pale yellow. ??? Think about joining a support group or a treatment program to help you stop drinking. ??? Keep all follow-up visits as told by your doctor. This is important. Contact a doctor if: ??? Your symptoms get worse. ??? You cannot eat or drink without throwing up. ??? You have a hard time not drinking alcohol. ??? You cannot stop drinking alcohol. Get help right away if: ??? You have fast or uneven heartbeats. ??? You have chest pain. ??? You have trouble breathing. ??? You have a seizure for the first time. ??? You see, hear, feel, smell, or taste something that is not there. ??? You get very confused. Summary ??? When a person who drinks a lot of alcohol stops drinking, he or she may have serious symptoms. This is called alcohol withdrawal syndrome. ??? Delirium tremens (DTs) is a group of life-threatening symptoms. You should get help right away if you have these symptoms. ??? Think about joining an alcohol support group or a treatment program. This information is not intended to replace advice given to you by your health care provider. Make sure you discuss any questions you have with your health care provider. Document Revised: 06/28/2021 Document Reviewed: 06/28/2021 Elsevier Patient Education ?? 2021 [employer]. Follow Up Care 10/20/2022 20:50:20 With:Cheli Gupta APRN Address: [address] [place] [id number]- When:11/01/2022 13:15:00 Discharge instructions * Jennifer Giordano: PERFORM Event Display: Discharge Instructions Authored Date: [id number] JOSE MARIA GUTIERREZ :1960 Age:62 years Sex:Male Visit Date:10/20/2022 Primary Care Physician: Cheli Gupta APRN Hospital Discharge Instructions We would like to thank you for allowing us to assist you with your healthcare needs. The following includes patient education materials and information regarding your injury/illness. After you leave the hospital, you may get your health information including your test results, physician notes and discharge information by accessing your Patient Portal. Your Next Steps Follow Up Appointments Follow Up with??Page Cheli SINGH When:??11/01/2022 02:15 PM EDT Where: [address] [place] [address]- Medications What How Much When Why Instructions Next Dose New thiamine (thiamine 100 mg oral tablet) 1 tab Oral (given by mouth) Every day Changed hydrOXYzine (hydrOXYzine hydrochloride 50 mg oral tablet) 1 tab Oral (given by mouth) 3 times a day as needed for as needed for anxiety Changed losartan (losartan 50 mg oral tablet) 1 tab Oral (given by mouth) Every morning blood pressure Changed pantoprazole (pantoprazole 40 mg oral delayed release tablet) 1 tab Oral (given by mouth) Every morning Changed sertraline (sertraline 50 mg oral tablet) 1 tab Oral (given by mouth) Every morning Unchanged cholecalciferol (Vitamin D3 2000 intl units oral capsule) 1 Capsules Oral (given by mouth) Every morning Unchanged magnesium oxide Oral (given by mouth) Every morning Unchanged QUEtiapine (SEROquel 50 mg oral tablet) 1 tab Oral (given by mouth) Every night at bedtime sleep ?? What How Much When Why Comments Stop Taking diclofenac (diclofenac potassium 50 mg oral tablet) 1 tab Oral (given by mouth) 2 times a day arthritis Stop Taking Other Prescription (RA VITAMIN D3 2,000 UNIT SFGL) take 1 capsule by mouth once daily as directed FOR VITAMIN D DEFICIENCY ?? Your Summary Your Care Team Admitting Physician - Slava Thompson APRN Attending Physician - Slava Thompson APRN Primary Care Physician - Page Cheli SINGH Your Diagnosis Alcohol use with withdrawal Hypertension Alcohol withdrawal Problems Ongoing - Any problem that you are currently receiving treatment for. Alcohol use with withdrawal Tests Performed/Pending Alcohol Lvl Automated Diff BMP CBC w/ Diff CMP COVID 19 (GeneXpert) Magnesium Level PT/ INR Troponin-I Discharge Vitals Temperature??(Temporal Artery) 97.5 ??F (36.4 ??C) Heart Rate??(Monitored) 98 Respiratory Rate?? 16 Blood Pressure?? 139/85?? Height?? 64.96 in (165.000 cm) Weight?? 138.47 lb (62.800 kg) BMI?? 23.070 Allergies Cats Education Materials Alcohol Withdrawal Syndrome When a person who drinks a lot of alcohol stops drinking, he or she may have unpleasant and serioussymptoms. These symptoms are called alcohol withdrawal syndrome. This condition may be mild or severe. It can be life-threatening. This condition can cause: ? Shaking that you cannot control (tremor). ? Sweating. ? Headache. ? Feeling fearful, upset, grouchy, or depressed. ? Trouble sleeping (insomnia). ? Nightmares. ? Fast or uneven heartbeats (palpitations). ? Alcohol cravings. ? Feeling sick to your stomach (nausea). ? Throwing up (vomiting). ? Being bothered by light and sounds. ? Confusion. ? Trouble thinking clearly. ? Not being hungry (loss of appetite). ? Big changes in mood (mood swings). If you have all of the following symptoms at the same time, get help right away: ? High blood pressure. ? Fast heartbeat. ? Trouble breathing. ? Seizures. ? Seeing, hearing, feeling, smelling, or tasting things that are not there (hallucinations). These symptoms are known as delirium tremens (DTs). They must be treated at the hospital right away. Follow these instructions at home: ? Take qhen-wxj-sfgaxku and prescription medicines only as told by your doctor. This includes vitamins. ? Do not drink alcohol. ? Do not drive until your doctor says that this is safe for you. ? Have someone stay with you or be available in case you need help. This should be someone you trust.This person can help you with your symptoms. He or she can also help you to not drink. ? Drink enough fluid to keep your pee (urine) pale yellow. ? Think about joining a support group or a treatment program to help you stop drinking. ? Keep all follow-up visits as told by your doctor. This is important. Contact a doctor if: ? Your symptoms get worse. ? You cannot eat or drink without throwing up. ? You have a hard time not drinking alcohol. ? You cannot stop drinking alcohol. Get help right away if: ? You have fast or uneven heartbeats. ? You have chest pain. ? You have trouble breathing. ? You have a seizure for the first time. ? You see, hear, feel, smell, or taste something that is not there. ? You get very confused. Summary ? When a person who drinks a lot of alcohol stops drinking, he or she may have serious symptoms. Thisis called alcohol withdrawal syndrome. ? Delirium tremens (DTs) is a group of life-threatening symptoms. You should get help right away if you have these symptoms. ? Think about joining an alcohol support group or a treatment program. This information is not intended to replace advice given to you by your health care provider. Make sure you discuss any questions you have with your health care provider. Document Revised: 06/28/2021 Document Reviewed: 06/28/2021 [employer] Patient Education ?? 2021 [employer] Patient Name:JOSE MARIA GUTIERREZ Catherine I have received this information and my questions have been answered. Patient/Track Greaser Name: Patient/Track Greaser Signature: Relationship to Patient: Witness Name/Signature: Date: Electronically Signed on: 10/21/2022 10:33 ESTSigned by:DAMIAN Physician Emergency department Note * Es Tran MD: PERFORM Event Display: ED Note Physician Authored Date: [id number] MATT JOSE MARIA Catherine :1960 Age:62 years Sex:Male Visit Date:10/20/2022 Primary Care Physician: Cheli Gupta APRN Basic Information Time Seen: Es Tran MD / 10/20/2022 20:55 Chief Complaint Pt. reports dizziness, shaking, SOB, and sweating associated with alcohol withdrawal. Last drink was 3 hours ago. History Of Present Illness: This patient is a 62-year-old male with a history of alcohol abuse who presents today for evaluation of dizziness??and shakiness.?? Patient states that he has been trying to cut down on his alcohol use. ??He typically drinks??half a bottle of bourbon and 6-8 beers per day.?? Over the last few days he has been trying to reduce it to just a few beers per day when he feels like he absolutely needs it .?? The patient??states that he has detoxed off of alcohol several times before??and does recognizethe symptoms of feeling shaky. ??However was different today??is that the patient also has some dizziness. ??He describes it as being worse with standing and describes it as feeling though his head??is??spinning and that he has ringing in his ears.?? Patient is also describing some shortness of breath but no chest pain.?? Patient??has not had any episodes of syncope. ??He did but was brought in by EMS with stable vital signs. Review of Systems: CONSTITUTIONAL:??No fevers or chills. ??Dizziness.?? EYES:??No change in vision. ENT:??No sore throat. ??No headache. ??No neck pain. CARDIOVASCULAR:??No chest pain, palpitations or passing out episodes. RESPIRATORY:??No cough, shortness of breath or hemoptysis. GI:??No abdominal pain. No nausea, vomiting or diarrhea. :??No change in urination. SKIN:??No rash. NEUROLOGIC:??No numbness or weakness. ??Tremulous MUSCULOSKELETAL:??No swelling or pain. PSYCHIATRIC:??No depression. LYMPH:??No swelling. Review of systems otherwise as stated in HPI Physical Exam Vitals & Measurements T:??36.8?C ??(Temporal Artery)?? HR:??101??(Monitored)?? RR:??18?? BP:??81/67?? SpO2:??100%?? HT:??165.000??cm?? WT:??72.57??kg??(Estimated)?? O2 Therapy:??Room air?? General: ??AAOx3. ??GCS15. ??No acute distress, answering questions appropriately. Head: ??Atraumatic; Normocephalic Eye: ??PERRLA; EOMI; no scleral icterus / pallor ENT: moist mucous membranes; no epistaxis. No stridor. Neck: ??Active ROM intact; Trachea Midline. ??No JVD. ??No meningismus appreciated. Skin: Warm, dry Chest: ??Equal BS bilaterally. ??Clear to auscultation bilaterally. Heart: RRR; no murmur, rub, or gallop Musculoskeletal: ??ROM intact of all extremities/joints without discomfort. ??Sensation grossly intact throughout. ??No obvious deformity. ??Strength Intact 5/5 throughout. ?? Neuro: Alert and oriented. Answering questions appropriately with clear speech. Motor and sensory grossly normal in all extremities.?? Mild tremor??in the hands Medical Decision Making: Patient CBC was unremarkable.?? CMP did show a slightly low potassium which will be replaced here..?? Patient's LFTs are elevated which are likely due to his chronic alcohol use.?? His creatinine is slightly elevated at 1.52 so he will be given some IV fluids.?? Troponin was negative and alcohol level is only 12.?? Patient was given Librium and Valium for alcohol withdrawal and on reexamination at 11:43 PM??his??tremors resolved and he is resting comfortably.?? The patient states that the lightheadedness is primarily when he stands up??and he currently is hypotensive at 73/58 with a MAP of 65??although previous readings were higher than this I suspect it is low because he was laying down sleeping.?? However, I think that his hypotension could be contributing to the lightheadedness when he is standing.?? I think patient should likely be observed overnight for continued IV fluid hydration??and alcohol withdrawal management. Procedure No Qualifying Data Assessment/Plan 1.??QT prolongation??R94.31 Ordered: potassium chloride, 20 mEq = 1 tab, Oral, Tab-ER, Daily for 30 days, First Dose: 10/20/22 21:46:00 EST, Stop Date: 11/19/22 8:59:00 EDT, Physician Stop Sodium Chloride 0.9% 1,000 mL + folic acid IV additive 1 mg + thiamine IV additive 100 mg + Magnesi, Total Volume (mL): 1,015, 1,000 mL, Injection, IV, 999 mL/hr, Start Date: 10/20/22 21:46:00 EST, 72.57 kg, Populate Charting Weight From Order, 1.82, m2 ?? 2.??Alcohol use with withdrawal??F10.939 Ordered: potassium chloride, 20 mEq = 1 tab, Oral, Tab-ER, Daily for 30 days, First Dose: 10/20/22 21:46:00 EST, Stop Date: 11/19/22 8:59:00 EDT, Physician Stop Sodium Chloride 0.9% 1,000 mL + folic acid IV additive 1 mg + thiamine IV additive 100 mg + Magnesi, Total Volume (mL): 1,015, 1,000 mL, Injection, IV, 999 mL/hr, Start Date: 10/20/22 21:46:00 EST, 72.57 kg, Populate Charting Weight From Order, 1.82, m2 ?? Orders: Electrocardiogram, 10/20/22 20:56:00 EST, Stat, Dyspnea[SOB], Stop date 10/20/22 20:56:00 EST Medication Reconciliation Unchanged hydrOXYzine (hydrOXYzine hydrochloride 50 mg oral tablet)take 1 tablet by mouth three times a day if needed for anxiety. ?? losartan (losartan 50 mg oral tablet)take 1 tablet by mouth once daily for blood pressure. ?? Other Prescription (RA VITAMIN D3 2,000 UNIT SFGL)take 1 capsule by mouth once daily as directed FOR VITAMIN D DEFICIENCY. ?? pantoprazole (pantoprazole 40 mg oral delayed release tablet)take 1 tablet by mouth daily. ?? sertraline (sertraline 50 mg oral tablet)take 1 tablet by mouth once daily. Problem List/Past Medical History Ongoing No qualifying data Historical No qualifying data Medication Administration Given chlordiazePOXIDE, 50 mg, Oral potassium chloride, 20 mEq, Oral. For: QT prolongation,??Alcohol use with withdrawal Valium, 5 mg, IV. For: QT prolongation,??Alcohol use with withdrawal Allergies Cats Social History Electronic Cigarette/Vaping Electronic Cigarette Use: Never. Tobacco Never tobacco user Tobacco Use:. Electronically Signed on 10/21/22 07:46 AM Es Tran MD Emergency department Note * Event Display: ED Notes History and physical note * Slava Thompson APRN: MODIFY, MODIFY, PERFORM, MODIFY, MODIFY, MODIFY Event Display: History and Physical Authored Date: [id number] JOSE MARIA GUTIERREZ :1960 Age:62 years Sex:Male Visit Date:10/20/2022 Primary Care Physician: Cheli uGpta APRN Chief Complaint Pt. reports dizziness, shaking, SOB, and sweating associated with alcohol withdrawal. Last drink was 3 hours ago. History of Present Illness 62 yr old male ETOH abuser drinks 6 bottles of beer and bourbon daily decided to cut down to 4 drinks a day starting 3 days ago and this morning with worsening signs of alcohol withdrawal as mentioned in chief complaint. Pt was medicated with librium and diazepam and fell asleep with BP dropping tothe 70s systolic, with MAP still at 65, he was then ordered fluid bolus and banana bag added. His Kwas 3.1 and was replaced, mg was 2.2 Na 131, crea 1.52 LFTs elevated his wbc only 9. On assessment pt is AOx3 not tremulous, not diaphoretic, calm he denies fever, chills, chest pain, nausea, sob, abd pain. He said he only had few episode so f vomiting at home 3 days ago but feels ok now. ?? Review of Systems Constitutional: No fevers, chills, Eye: No recent visual problems ENT: No ear pain, nasal congestion, sore throat Respiratory: No shortness of breath, cough Cardiovascular: No Chest pain, palpitations, syncope Gastrointestinal:??+ nausea, vomiting, Genitourinary: No hematuria Buddy/Lymph: Negative for bruising tendency, swollen lymph glands Endocrine: Negative for excessive thirst, excessive hunger Musculoskeletal: No back pain, neck pain, joint pain, muscle pain, decreased range of motion Integumentary: No rash, pruritus, abrasions Neurologic: Alert & oriented X 4 ?? Physical Exam Vitals & Measurements T:??36.8?C ??(Temporal Artery)?? HR:??101??(Monitored)?? RR:??18?? BP:??81/67?? SpO2:??100%?? HT:??165.000??cm?? WT:??72.57??kg??(Estimated)?? O2 Therapy:??Room air?? General: Alert and oriented, well nourished,?No??acute distress Eye: PERRL, EOMI,?Normal??conjunctiva HENT: Normocephalic, atraumatic Neck:?No??lymphadenopathy Lungs:??Clear??to auscultation ,?Non-labored?? respiration Heart:?Normal?? rate,?Regular??rhythm Abdomen: Soft, non-tender, non-distended,?Normal?? bowel sounds,?? Musculoskeletal:?Normal?? range of motion and strength,?No??tenderness,?No??swelling Skin: Skin is warm, dry and pink,?No??rashes,?No??lesions Neurologic: Awake, alert and oriented X4, CN II-XII intact Psychiatric: Cooperative, appropriate mood and affect Assessment/Plan 1.??QT prolongation??R94.31 likely from dehydration and electrolyte imbalance from vomiting episodes. K repleted. ongoing hydration. banana bag pt also on sertraline which can prolong qtc. will?? hold for now. may need dose adjustment per pcp on discharge. 2.??Alcohol use with withdrawal??F10.939 admit to med surgery observation. CIWA protocol. thiamine 100mg po daily ?? 3. depression/ anxiety hold??home sertraline. pt already given diazepam and librium at ED. also holding his hydroxyzine . he will be on prn librium and ativan per [facility] protocol ?? 4. DVT prophylaxis : lovenox ?? 5. code status: full code Orders: pantoprazole, 40 mg = 1 tab, Oral, Tab-DR, Daily, First Dose: 10/21/22 6:30:00 EST, Routine sertraline, 50 mg = 1 tab, Oral, Tab, Daily, First Dose: 10/21/22 9:00:00 EST, Routine thiamine, 100 mg = 1 tab, Oral, Tab, Daily for 30 days, First Dose: 10/21/22 9:00:00 EST, Stop Date: 11/20/22 8:59:00 EDT, Physician Stop, Routine Basic Metabolic Panel, Blood, Routine, 10/20/22 23:19:00 EST, Daily, for 3 days, Lab Collect CBC w/ Diff, Blood, Routine, 10/20/22 23:19:00 EST, Daily, for 3 days, Lab Collect Diet Order, 10/20/22 23:18:00 EST, Regular Fall Risk Precautions, 10/20/22 23:18:00 EST Magnesium Level, Blood, Routine, 10/20/22 23:19:00 EST, Daily, for 3 days, Lab Collect Patient Condition, 10/20/22 23:18:00 EST, Condition Guarded PSO Place in Observation, Observation, Observation, 10/20/22 23:07:00 EST, 10/20/22 23:07:00 EST, 10/20/22 23:07:00 EST, 2 midnights or more Resuscitation Status, 10/20/22 23:18:00 EST, Full Code Seizure Precautions, 10/20/22 23:18:00 EST, Constant Order Up ad Supriya, 10/20/22 23:18:00 EST, Constant Order, at nurse's discretion Vital Signs, 10/20/22 23:18:00 EST, every 2 hr Problem List/Past Medical History Ongoing No qualifying data Historical No qualifying data Medications Inpatient pantoprazole, 40 mg= 1 tab, Oral, Daily potassium chloride, 20 mEq= 1 tab, Oral, Daily sertraline, 50 mg= 1 tab, Oral, Daily Sodium Chloride 0.9% 1,000 mL, 1000 mL, Hydration Bolus Sodium Chloride 0.9% 1,000 mL + folic acid IV additive 1 mg + thiamine IV additive 100 mg + Magnesi thiamine, 100 mg= 1 tab, Oral, Daily Home hydrOXYzine hydrochloride 50 mg oral tablet losartan 50 mg oral tablet pantoprazole 40 mg oral delayed release tablet RA VITAMIN D3 2,000 UNIT SFGL sertraline 50 mg oral tablet Allergies Cats Social History Electronic Cigarette/Vaping Electronic Cigarette Use: Never. Tobacco Never tobacco user Tobacco Use:. Electronically Signed on 10/21/22 05:30 AM Slava Thompson APRN Discharge summary * John Grajeda MD: PERFORM, MODIFY, MODIFY Event Display: Discharge Summary Authored Date: [id number] JOSE MARIA GUTIERREZ :1960 Age:62 years Sex:Male Visit Date:10/20/2022 Primary Care Physician: Cheli Gupta APRN Hospital Course This is a pleasant??62-year-old male who I am familiar with. ??He has a history of hypertension anddepression. ?? He most notably has a history of severe alcoholism. ?? He states when he detoxes off of alcohol??that he usually gets shaky, has never had seizures, has never had??delirium tremors. ?? He was drinking his usual beer but added whiskey to his regiment and thus felt he was drinking morethan usual. ?? He then??started to cut down by himself??started to detox by himself. ?? He found himself shaky but also dizzy which was new for him and came to the emergency room for evaluation. ?? In the emergency room he was dehydrated with an elevated creatinine. He was dehydrated with a??low blood pressure that responded to IV fluid although??benzodiazepines were already on board. ?? But it is best thought we watch the patient overnight. Of note his QTc was slightly greater than 500 and down to 480. ??He is on Seroquel longstanding, sertraline with??and hydroxyzine.?? Thus the increase is most likely related to??his alcohol and the improvement??airway from such. ??Thus the need??in the setting with his longstanding medication profile for alcohol abstinence. ?? The potassium is mildly low but he prefers to have a potassium rich diet which is preferred his past potassium pill supplementation??could interact with hydroxyzine over time. ??He already has magnesium supplementation. ??He will take [id number] thiamine. ?? This is because when I see the patient this morning he feels great. ??He is not requiring any benzos. ??His blood pressure is restored.?? He has no tremors, he has no dizziness. ??He is up in bed andeager to go go home. ??We did have [facility] see the patient??work on his alcohol abstinence and to give him resources for such. Physical Exam Vitals & Measurements T:??36.5?C ??(Temporal Artery)?? TMIN:??36.4?C ??(Temporal Artery)?? TMAX:??36.8?C ??(Temporal Artery)?? HR:??86??(Monitored)?? RR:??18?? BP:??120/72?? SpO2:??98%?? HT:??165.000??cm?? WT:??62.800??kg?? BMI:??23.070?? O2 Therapy:??Room air?? General: Oriented x4, pleasant, no tremors.?? HENT:??Normocephalic, clear tympanic membranes, normal hearing, moist oral mucosa, no scleral icterus, no sinus tenderness.?? Lungs:??Clear to auscultation and percussion, non-labored respiration.?? Heart:??Normal rate, regular rhythm, no murmur, gallop or edema. Abdomen:??Soft, non-tender, non-distended, normal bowel sounds, no masses.?? Musculoskeletal:??Normal range of motion and strength, no tenderness or swelling. Skin:??Skin is warm, dry and pink, no rashes or lesions. Neurologic: Cranial nerves II to XII are intact, strength, sensation, reflexes are even and intact his upper lower extremities. ??Coordination is intact from thumb to finger. ??No tremors. Medications Inpatient chlordiazePOXIDE, 25 mg= 1 cap, Oral, every 6 hr, PRN hydrOXYzine, 50 mg= 2 tab, Oral, TID LORazepam, 2 mg= 1 mL, IV Push, every 1 hr, PRN Lovenox, 40 mg= 0.4 mL, Subcutaneous, Daily NS drip 1,000 mL, 1000 mL, IV pantoprazole, 40 mg= 1 tab, Oral, Daily sertraline, 50 mg= 1 tab, Oral, Daily Sodium Chloride 0.9% 1,000 mL, 1000 mL, Hydration Bolus thiamine, 100 mg= 1 tab, Oral, Daily Home hydrOXYzine hydrochloride 50 mg oral tablet, 50 mg= 1 tab, Oral, TID, PRN losartan 50 mg oral tablet, 50 mg= 1 tab, Oral, every morning magnesium oxide, Oral, every morning pantoprazole 40 mg oral delayed release tablet, 40 mg= 1 tab, Oral, every morning SEROquel 50 mg oral tablet, 50 mg= 1 tab, Oral, every night at bedtime sertraline 50 mg oral tablet, 50 mg= 1 tab, Oral, every morning thiamine 100 mg oral tablet, 100 mg= 1 tab, Oral, Daily Vitamin D3 2000 intl units oral capsule, 50 mcg= 1 cap, Oral, every morning Social History Electronic Cigarette/Vaping Electronic Cigarette Use: Never. Home/Environment Lives with Alone. Living situation: Home/Independent. Tobacco Never tobacco user Tobacco Use:. Discharge Plan 1.??Alcohol use with withdrawal??F10.939,??Alcohol withdrawal??F10.939 For his alcohol abuse he is meeting with [facility]. ?? For his alcohol withdrawal, he is showing no further signs of withdrawal but the patient will have??handout and instructions??and will return to the emergency room with resumption of tremors, any dizziness, any lightheadedness, or any??delirium. 2.??Hypertension??I10 As stated, his blood pressure is restored, restart??losartan Orders: hydrOXYzine, 50 mg = 2 tab, Oral, Tab, TID for 30 days, First Dose: 10/21/22 9:59:00 EST, Stop Date: 11/20/22 8:59:00 EDT, Physician Stop, Routine sertraline, 50 mg = 1 tab, Oral, Tab, Daily for 30 days, First Dose: 10/21/22 10:04:00 EST, Stop Date: 11/20/22 8:59:00 EDT, Physician Stop, Routine thiamine 100 mg oral tablet, 100 mg = 1 tab, Oral, Daily, 0 Refill(s) Discharge Patient, 10/21/22 9:55:00 EST Discharge Patient, 10/21/22 10:01:00 EST, Home Independently All Diagnoses This Visit Alcohol use with withdrawal Hypertension Alcohol withdrawal Patient Discharge Condition Stable Discharge Disposition Alcohol abstinence per [facility] resources, return to the emergency room for the reasons listed above, PCP follow-up. Time spent on patient care today is 40 minutes. Patient Education Alcohol Withdrawal Syndrome, [id number] Follow Up With When Contact Information Page Cheli SINGH Within 1 to 2 weeks [address] [place] [address]- Additional Instructions: Medication Reconciliation New Prescription thiamine (thiamine 100 mg oral tablet)1 tab Oral (given by mouth) every day. ?? Changed hydrOXYzine (hydrOXYzine hydrochloride 50 mg oral tablet)1 tab Oral (given by mouth) 3 times a day as needed as needed for anxiety. ?? losartan (losartan 50 mg oral tablet)1 tab Oral (given by mouth) every morning. ?? pantoprazole (pantoprazole 40 mg oral delayed release tablet)1 tab Oral (given by mouth) every morning. ?? sertraline (sertraline 50 mg oral tablet)1 tab Oral (given by mouth) every morning. ?? Unchanged cholecalciferol (Vitamin D3 2000 intl units oral capsule)1 Capsules Oral (given by mouth) every morning. ?? magnesium oxideOral (given by mouth) every morning. ?? QUEtiapine (SEROquel 50 mg oral tablet)1 tab Oral (given by mouth) every night at bedtime. ?? Discontinued diclofenac (diclofenac potassium 50 mg oral tablet)1 tab Oral (given by mouth) 2 times a day. ?? Other Prescription (RA VITAMIN D3 2,000 UNIT SFGL)take 1 capsule by mouth once daily as directed FOR VITAMIN D DEFICIENCY. Electronically Signed on 10/21/22 10:16 AM John Grajeda MD Patient Care team information Care Team Personnel Name: Cheli Gupta APRN Position: Physician Member Role: Primary Care Physician Address: Address: [address] [place] [id number] Name: Vidhi Simon Position: Nurse Member Role: Registered Nurse Name: Es Tran MD Position: Physician Member Role: ED Physician Address: Address: [address] [place] [id number] Name: Yeni Mena Position: Nurse Member Role: Registered Nurse
--- OUTSIDE RECORDS SUMMARY | 2023-04-25 12:16 | XMS_ITS | Continuity of Care Document ---
Author Name Unknown Organization [facility] Address [address] [place] [address] Care Team Providers Care Title Coordinator Name Role Phone Page Cheli SINGH Primary Care Physician Encounter [facility] FIN NBR [id number] Date(s): 02/23/23 - 02/27/23 [facility] [address] [place] [address]- Encounter Diagnosis Hypokalemia(Discharge Diagnosis) - 02/23/23 Alcohol withdrawal(Discharge Diagnosis) - 02/23/23 Hypomagnesemia(Discharge Diagnosis) - 02/23/23 Alcohol abuse(Discharge Diagnosis) - 02/23/23 Hypertension(Discharge Diagnosis) - 02/23/23 Discharge Disposition: Home f/u External Provider Attending Physician: John Grajeda MD Admitting Physician: John Grajeda MD Allergies, Adverse Reactions, Alerts Substance Reaction Severity Status Cats Unknown Active Functional Status 02/27/23 Living Environment Living Situation: Current Home Treatments: Home Devices/Equipment Cane Professional Skilled Services: Special Services and Community Resources: Sensory Deficits: Performed by: Nohemi Trujillo02/24/23 11:41:00 Patient's Responsibilities Rehab Persona l ADL Home Equipment Cane, Walker Prior ADL Status Assist needed Prior Mobility Status Assist needed Prior Instrumental ADL Level Assist need ed Prior Cognitive-Communication Skills Ass ist needed 02/27/23 Home Barriers None Job Responsibilities pt is disables, tian s not work 02/26/23 Personal Care Provided Constanza Cardoso, Other: pt did care himself 02/26/23 Lunch Percent 75 02/26/23 Activity Status ADL Up to chair Breakfast Percent 100 02/25/23 ADLs Moderate assistance Positioning/Pressure Reducing Devices Pi llow 02/25/23 Dinner Percent 100 02/24/23 Assistive Device Walker 02/24/23 Ambulation Patient Effort Good Ambulation Minutes 2 02/23/23 Evening Snack Percent 100 02/23/23 Family Member Travel History No recent t ravel Recent Travel History No recent travel Other exposure to Infectious Disease Non e Medications folic acid 0.4 mg oral tablet 0.4 [...] every 4 hr, PRN as needed for fever, # 120 tab, 0 Refill(s) Start Date: 02/24/23 Status: Ordered magnesium oxide 400 mg (241.3 mg elemental magnesium) oral tablet 400 mg = 1 tab, Oral, BID, # 60 tab, 0 Refill(s), [facility]: [id number], 165, cm, 02/23/23 14:34:00 EDT, Height/Length Dosing, 64, kg, 02/23/23 14:34:00 EDT, Weight Dosing Start Date: 02/27/23 Status: Ordered Metoprolol Tartrate 25 mg oral tablet 25 mg = 1 tab, Oral, BID, # 60 tab, 0 Refill(s), [facility]: [facility][id number], 165, cm, 02/23/23 14:34:00 EDT, Height/Length Dosing, 64, kg, 02/23/23 14:34:00 EDT, Weight Dosing Start Date: 02/27/23 Status: Ordered pantoprazole 40 mg oral delayed release tablet 40 mg = 1 tab, Oral, every morning Start Date: 10/20/22 Status: Ordered potassium chloride 20 mEq oral tablet, extended release 20 mEq = 1 tab, Oral, BID, # 60 tab, 0 Refill(s), Pharmacy: [facility] #[id number], 165, cm, 02/23/23 14:34:00 EDT, Height/Length Dosing, 64, kg, 02/23/23 14:34:00 EDT, Weight Dosing Start Date: 02/27/23 Status: Ordered sertraline 50 mg oral tablet 50 mg = 1 tab, Oral, every morning Start Date: 10/20/22 Status: Ordered thiamine 100 mg oral tablet 100 mg = 1 tab, Oral, Daily, 0 Refill(s) Start Date: 10/21/22 Status: Ordered Vitamin D3 2000 intl units oral capsule 50 mcg 1 cap, Oral, every morning Start Date: 10/21/22 Status: Ordered Mental Status 02/26/23 Eye Opening Response Wayan Spontaneous ly Best Verbal Response Wayan Oriented Best Motor Response Wayan Obeys comman ds Wayan Coma Score 15 Problem List Condition Confirmation Course Effective Dates Status Health St atus Informant Alcohol use with withdrawal Confirmed Active Results Laboratory List Name Date Basic Metabolic Panel (BMP) 02/26/23 Hepatic Function Panel 02/26/23 Magnesium Level 02/26/23 Automated Diff 02/25/23 Basic Metabolic Panel (BMP) 02/25/23 CBC w/ Diff 02/25/23 Hepatic Function Panel 02/25/23 Magnesium Level 02/25/23 Basic Metabolic Panel (BMP) 02/24/23 Hepatic Function Panel 02/24/23 Magnesium Level 02/24/23 Troponin-I 02/23/23 Automated Diff 02/23/23 Alcohol Lvl 02/23/23 CBC w/ Diff 02/23/23 Lactic Acid 02/23/23 Phosphorus Level 02/23/23 Troponin-I 02/23/23 Vitamin B12 & Folate Level 02/23/23 Most recent to oldest [Reference Range]: 1 2 3 WBC [4.8-10.8 K/mcL] 7.0 K/mcL (02/25/23 3:35 AM) 5.4 K/mcL (02/23/23 2:42 PM) RBC [4.20-6.10 Million/mcL] 3.73 Million /mcL *LOW* (02/25/23 3:35 AM) 4.15 Million/mcL *LOW* (02/23/23 2:42 PM) Neutro Auto [42.2-75.2 %] 67.7 % (02/25/23 3:35 AM) 62.8 % (02/23/23 2:42 PM) Lymph Auto [20.5-51.1 %] 19.9 % *LOW* (02/25/23 3:35 AM) 22.6 % (02/23/23 2:42 PM) [place] Auto [1.7-9.3 %] 10.0 % *HI* (02/25/23 3:35 AM) 13.1 % *HI* (02/23/23 2:42 PM) Basophil Auto [0.0-0.8 %] 0.4 % (02/25/23 3:35 AM) 0.4 % (02/23/23 2:42 PM) BUN [8-26 mg/dL] 6 mg/dL *LOW* (02/26/23 3:35 AM) 9 mg/dL (02/25/23 3:35 AM) 10 mg/dL (02/24/23 7:31 AM) Glucose Level [74-106 mg/dL] 119 mg/dL *HI* (02/26/23 3:35 AM) 93 mg/dL (02/25/23 3:35 AM) 84 mg/dL (02/24/23 7:31 AM) Potassium Level [3.5-5.1 mmol/L] 3.2 mmol/L *LOW* (02/26/23 3:35 AM) 4.0 mmol/L (02/25/23 3:35 AM) 3.2 mmol/L *LOW* (02/24/23 7:31 AM) Baso Absolute [0.0-0.2 K/mcL] 0.0 K/mcL (02/25/23 3:35 AM) 0.0 K/mcL (02/23/23 2:42 PM) MCV [80.0-94.0 fL] 92.0 fL (02/25/23 3:35 AM) 90.4 fL (02/23/23 2:42 PM) AST [15-41 IntlUnit/L] 84 IntlUnit/L *HI* (02/26/23 3:35 AM) 107 IntlUnit/L *HI* (02/25/23 3:35 AM) 115 IntlUnit/L *HI* (02/24/23 7:31 AM) ALT [17-63 IntlUnit/L] 85 IntlUnit/L *HI* (02/26/23 3:35 AM) 103 IntlUnit/L *HI* (02/25/23 3:35 AM) 113 IntlUnit/L *HI* (02/24/23 7:31 AM) MCHC [32.0-36.0 g/dL] 35.3 g/dL (02/25/23 3:35 AM) 36.3 g/dL *HI* (02/23/23 2:42 PM) Osmolality [275-295 mOsm/kg] 261 mOsm/kg *LOW* (02/26/23 3:35 AM) 265 mOsm/kg *LOW* (02/25/23 3:35 AM) 263 mOsm/kg *LOW* (02/24/23 7:31 AM) Troponin-I [<=0.05 ng/mL] 0.02 ng/mL 1 (02/23/23 9:23 PM) 0.01 ng/mL 2 (02/23/23 2:42 PM) Sodium Level [134-143 mmol/L] 131 mmol/L *LOW* (02/26/23 3:35 AM) 133 mmol/L *LOW* (02/25/23 3:35 AM) 132 mmol/L *LOW* (02/24/23 7:31 AM) Folate Level [>=5.9 ng/mL] 6.6 ng/mL (02/23/23 2:42 PM) Lymph Absolute [1.2-3.4 K/mcL] 1.4 K/mcL (02/25/23 3:35 AM) 1.2 K/mcL (02/23/23 2:42 PM) Hct [42.0-52.0 %] 34.3 % *LOW* (02/25/23 3:35 AM) 37.5 % *LOW* (02/23/23 2:42 PM) Calcium Level [8.9-10.3 mg/dL] 8.2 mg/dL *LOW* (02/26/23 3:35 AM) 8.4 mg/dL *LOW* (02/25/23 3:35 AM) 8.1 mg/dL *LOW* (02/24/23 7:31 AM) [place] Absolute [0.1-0.6 K/mcL] 0.7 K/mcL *HI* (02/25/23 3:35 AM) 0.7 K/mcL *HI* (02/23/23 2:42 PM) Phosphorus Level [2.5-4.9 mg/dL] 3.9 mg/dL (02/23/23 2:42 PM) Albumin Level [3.5-5.0 g/dL] 2.5 g/dL *LOW* (02/26/23 3:35 AM) 2.7 g/dL *LOW* (02/25/23 3:35 AM) 2.7 g/dL *LOW* (02/24/23 7:31 AM) Protein Total [6.5-8.1 g/dL] 4.9 g/dL *LOW* (02/26/23 3:35 AM) 5.4 g/dL *LOW* (02/25/23 3:35 AM) 5.2 g/dL *LOW* (02/24/23 7:31 AM) MCH [27.0-31.0 pg] 32.4 pg *HI* (02/25/23 3:35 AM) 32.8 pg *HI* (02/23/23 2:42 PM) Magnesium Level [1.8-2.5 mg/dL] 1.5 mg/dL *LOW* (02/26/23 3:35 AM) 1.6 mg/dL *LOW* (02/25/23 3:35 AM) 2.3 mg/dL (02/24/23 7:31 AM) Neutro Absolute [1.4-6.5 K/mcL] 4.7 K/mcL (02/25/23 3:35 AM) 3.4 K/mcL (02/23/23 2:42 PM) Bilirubin Total [0.2-1.2 mg/dL] 1.4 mg/dL *HI* (02/26/23 3:35 AM) 2.5 mg/dL *HI* (02/25/23 3:35 AM) 3.0 mg/dL *HI* (02/24/23 7:31 AM) Hgb [14.0-18.0 g/dL] 12.1 g/dL *LOW* (02/25/23 3:35 AM) 13.6 g/dL *LOW* (02/23/23 2:42 PM) B12 Level [180-914 pg/mL] 796 pg/mL (02/23/23 2:42 PM) Alk Phos [38-130 IntlUnit/L] 146 IntlUnit/L *HI* (02/26/23 3:35 AM) 114 IntlUnit/L (02/25/23 3:35 AM) 119 IntlUnit/L (02/24/23 7:31 AM) MPV [7.4-10.4 fL] 10.5 fL *HI* (02/25/23 3:35 AM) 10.5 fL *HI* (02/23/23 2:42 PM) Ethanol Level [0.00-0.08 g/dL] See Comment g/dL 3 *NA* (02/23/23 2:42 PM) Bilirubin Direct [0.0-0.5 mg/dL] 0.6 mg/dL *HI* (02/26/23 3:35 AM) 1.2 mg/dL *HI* (02/25/23 3:35 AM) 1.3 mg/dL *HI* (02/24/23 7:31 AM) Platelets [130-400 K/mcL] 96 K/mcL 4 *LOW* (02/25/23 3:35 AM) 100 K/mcL *LOW* (02/23/23 2:42 PM) CO2 [22-32 mmol/L] 23 mmol/L (02/26/23 3:35 AM) 21 mmol/L *LOW* (02/25/23 3:35 AM) 24 mmol/L (02/24/23 7:31 AM) Eos Absolute [0.0-0.2 K/mcL] 0.1 K/mcL (02/25/23 3:35 AM) 0.0 K/mcL (02/23/23 2:42 PM) Lactic Acid Lvl [0.5-2.2 mmol/L] 1.6 mmol/L (02/23/23 2:42 PM) Chloride Level [98-111 mmol/L] 102 mmol/L (02/26/23 3:35 AM) 108 mmol/L (02/25/23 3:35 AM) 102 mmol/L (02/24/23 7:31 AM) RDW-CV [11.5-14.5 %] 13.5 % (02/25/23 3:35 AM) 13.1 % (02/23/23 2:42 PM) A/G Ratio 1.0 *NA* (02/26/23 3:35 AM) 1.0 *NA* (02/25/23 3:35 AM) 1.1 *NA* (02/24/23 7:31 AM) BUN/Creat Ratio [8.0-20.0] 9.8 (02/26/23 3:35 AM) 13.4 (02/25/23 3:35 AM) 16.4 (02/24/23 7:31 AM) Globulin 2.4 *NA* (02/26/23 3:35 AM) 2.7 *NA* (02/25/23 3:35 AM) 2.5 *NA* (02/24/23 7:31 AM) Imm Gran Absolute 0.05 *NA* (02/25/23 3:35 AM) 0.02 *NA* (02/23/23 2:42 PM) Imm Gran Auto [0.0-0.5 %] 0.7 % *HI* (02/25/23 3:35 AM) 0.4 % (02/23/23 2:42 PM) NRBC Auto 0 *NA* (02/25/23 3:35 AM) 0 *NA* (02/23/23 2:42 PM) NRBC Absolute 0 *NA* (02/25/23 3:35 AM) 0 *NA* (02/23/23 2:42 PM) Slide Review Morph Only (02/25/23 3:35 AM) Not Indicated (02/23/23 2:42 PM) Creatinine Level [0.61-1.24 mg/dL] 0.61 mg/dL (02/26/23 3:35 AM) 0.67 mg/dL (02/25/23 3:35 AM) 0.61 mg/dL (02/24/23 7:31 AM) Anion Gap [3.0-12.0] 6.0 (02/26/23 3:35 AM) 4.0 (02/25/23 3:35 AM) 6.0 (02/24/23 7:31 AM) Eos, Auto [0.00-3.00 %] 1.30 % (02/25/23 3:35 AM) 0.70 % (02/23/23 2:42 PM) Instr Ethanol Lvl [<=5 mg/dL] <5 mg/dL (02/23/23 2:42 PM) eGFR CKD-EPI [>=60 mL/min/1.73 m2] 108 mL/min/1.73 m2 (02/26/23 3:35 AM) 105 mL/min/1.73 m2 (02/25/23 3:35 AM) 108 mL/min/1.73 m2 (02/24/23 7:31 AM) 1Interpretive Data: Elevated levels of Troponin I are detectable in plasma within 3-6 hours after onset of myocardial infarction, reach peak concentrations in approximately 12-16 hours, and remain elevated for 4-9 days following an AMI. Any conditions resulting in myocardial damage can potentially increase cardiac Troponin I levels above the expected values. Clinical studies have documented these conitions to include: unstable angina, congestive heart failure, myocarditis, cardiac surgery, or invasive testing proedures. Arteritits, coronary embolism, and cocaine or amphetamine use potentially lead to elevated levels. 2Interpretive Data: Elevated levels of Troponin I are detectable in plasma within 3-6 hours after onset of myocardial infarction, reach peak concentrations in approximately 12-16 hours, and remain elevated for 4-9 days following an AMI. Any conditions resulting in myocardial damage can potentially increase cardiac Troponin I levels above the expected values. Clinical studies have documented these conitions to include: unstable angina, congestive heart failure, myocarditis, cardiac surgery, or invasive testing proedures. Arteritits, coronary embolism, and cocaine or amphetamine use potentially lead to elevated levels. 3Result Comment: Unable to report ETOH level due to measured ETOH being below instrument linearity. 4Result Comment: Platelet estimate agrees with smear scan Vital Signs Most recent to oldest [Reference Range]: 1 2 3 Temperature Temporal Artery [36-38 Deg C] 36.6 Deg C (02/27/23 11:30 AM) 36.6 Deg C (02/27/23 7:10 AM) 36.9 Deg C (02/26/23 11:39 PM) Temperature Temporal Artery (DegF) [97.3-100 Deg F] 98.42 Deg F (02/26/23 11:07 AM) 98.06 Deg F (02/26/23 8:00 AM) 98.24 Deg F (02/26/23 4:00 AM) Peripheral Pulse Rate [60-100 bpm] 90 bpm (7/10/23 11:30 AM) 93 bpm (02/27/23 7:10 AM) 90 bpm (02/26/23 11:39 PM) Heart Rate Monitored [60-100 bpm] 97 bpm (02/26/23 2:00 PM) 110 bpm *HI* (02/26/23 12:00 PM) 110 bpm *HI* (02/26/23 11:07 AM) Respiratory Rate [12-24 br/min] 15 br/min (02/26/23 2:00 PM) 17 br/min (02/26/23 12:00 PM) 23 br/min (02/26/23 11:07 AM) Blood Pressure [90-140/60-90 mmHg] 130/96mmHg (02/27/23 11:30 AM) 112/79mmHg (02/27/23 7:10 AM) 163/100mmHg *HI* (02/26/23 11:39 PM) Mean Arterial Pressure, Cuff [65-140 mmHg] 97 mmHg (02/26/23 2:00 PM) 109 mmHg (02/26/23 12:00 PM) 112 mmHg (02/26/23 11:00 AM) Mean Arterial Pressure Cuff 96 mmHg (02/26/23 2:00 PM) 106 mmHg (02/26/23 12:00 PM) 108 mmHg (02/26/23 11:00 AM) Blood Pressure Location Left arm (02/26/23 11:39 PM) Right arm (02/26/23 8:03 PM) Right arm (02/25/23 3:00 PM) Blood Pressure Method Automatic (02/26/23 11:39 PM) Automatic (02/26/23 8:03 PM) Automatic (02/25/23 3:00 PM) Weight 63.8 kg (02/24/23 10:00 PM) 62.3 kg (02/24/23 7:30 AM) 60.9 kg (02/23/23 6:36 PM) Weight Measured (lbs) 137.348 lb (02/24/23 7:30 AM) 134.261 lb (02/23/23 6:36 PM) Weight Dosing 64.00 kg (02/23/23 2:34 PM) Weight Estimated 64.00 kg (02/23/23 2:24 PM) Height/Length Dosing 165.000 cm (02/23/23 2:34 PM) Height/Length Estimated 165.000 cm (02/23/23 2:24 PM) Social History Social History Type Response Tobacco Never tobacco user T obacco Use:. Sex Hospital Discharge Instructions Patient Education 02/27/2023 10:19:19 Alcohol Abuse and Dependence Information, Adult Alcohol Abuse and Dependence Information, Adult Alcohol is a widely available drug. People drink alcohol in different amounts. People who drink alcohol very often and in large amounts often have problems during and after drinking. They may developwhat is called an alcohol use disorder. There are two main types of alcohol use disorders: ??? Alcohol abuse. This is when you use alcohol too much or too often. You may use alcohol to make yourself feel happy or to reduce stress. You may have a hard time setting a limit on the amount you drink. ??? Alcohol dependence. This is when you use alcohol consistently for a period of time, and your body changes as a result. This can make it hard to stop drinking because you may start to feel sick orfeel different when you do not use alcohol. These symptoms are known as withdrawal. How can alcohol abuse and dependence affect me? Alcohol abuse and dependence can have a negative effect on your life. Drinking too much can lead toaddiction. You may feel like you need alcohol to function normally. You may drink alcohol before work in the morning, during the day, or as soon as you get home from work in the evening. These actions can result in: ??? Poor work performance. ??? Job loss. ??? Financial problems. ??? Car crashes or criminal charges from driving after drinking alcohol. ??? Problems in your relationships with friends and family. ??? Losing the trust and respect of coworkers, friends, and family. Drinking heavily over a long period of time can permanently damage your body and brain, and can cause lifelong health issues, such as: ??? Damage to your liver or pancreas. ??? Heart problems, high blood pressure, or stroke. ??? Certain cancers. ??? Decreased ability to fight infections. ??? Brain or nerve damage. ??? Depression. ??? Early (premature) . If you are careless or you crave alcohol, it is easy to drink more than your body can handle (overdose). Alcohol overdose is a serious situation that requires hospitalization. It may lead to permanent injuries or . What can increase my risk? Having a family history of alcohol abuse. ??? Having depression or other mental health conditions. ??? Beginning to drink at an early age. ??? Binge drinking often. ??? Experiencing trauma, stress, and an unstable home life during childhood. ??? Spending time with people who drink often. What actions can I take to prevent or manage alcohol abuse and dependence? Do not drink alcohol if: ??? Your health care provider tells you not to drink. ??? You are , may be , or are planning to become . ??? If you drink alcohol: ??? Limit how much you use to: ??? 0???1 drink a day for women. ??? 0???2 drinks a day for men. ??? Be aware of how much alcohol is in your drink. In the [place] one drink equals one 12 oz bottle of beer (355 mL), one 5 oz glass of wine (148 mL), or one 1?? oz glass of hard liquor (44 mL). ??? Stop drinking if you have been drinking too much. This can be very hard to do if you are used to abusing alcohol. If you begin to have withdrawal symptoms, talk with your health care provider or a person that you trust. These symptoms may include anxiety, shaky hands, headache, nausea, sweating, or not being able to sleep. ??? Choose to drink nonalcoholic beverages in social gatherings and places where there may be alcohol. Activity ??? Spend more time on activities that you enjoy that do not involve alcohol, like hobbies or exercise. ??? Find healthy ways to cope with stress, such as exercise, meditation, or spending time with people you care about. General information ??? Talk to your family, coworkers, and friends about supporting you in your efforts to stop drinking. If they drink, ask them not to drink around you. Spend more time with people who do not drink alcohol. ??? If you think that you have an alcohol dependency problem: ??? Tell friends or family about your concerns. ??? Talk with your health care provider or another health professional about where to get help. ??? Work with a therapist and a chemical dependency counselor. ??? Consider joining a support group for people who struggle with alcohol abuse and dependence. Where to find support ??? Your health care provider. ??? SMART Recovery: www.smartrecovery.org Therapy and support groups ??? Local treatment centers or chemical dependency counselors. ??? Local AA groups in your community: www.aa.org Where to find more information ??? Centers for Disease Control and Prevention: www.cdc.gov ??? National [place] on Alcohol Abuse and Alcoholism: www.niaaa.nih.gov ??? Alcoholics Anonymous (AA): www.aa.org Contact a health care provider if: ??? You drank more or for longer than you intended on more than one occasion. ??? You tried to stop drinking or to cut back on how much you drink, but you were not able to. ??? You often drink to the point of vomiting or passing out. ??? You want to drink so badly that you cannot think about anything else. ??? You have problems in your life due to drinking, but you continue to drink. ??? You keep drinking even though you feel anxious, depressed, or have experienced memory loss. ??? You have stopped doing the things you used to enjoy in order to drink. ??? You have to drink more than you used to in order to get the effect you want. ??? You experience anxiety, sweating, nausea, shakiness, and trouble sleeping when you try to stop drinking. Get help right away if: ??? You have thoughts about hurting yourself or others. ??? You have serious withdrawal symptoms, including: ??? Confusion. ??? Racing heart. ??? High blood pressure. ??? Fever. If you ever feel like you may hurt yourself or others, or have thoughts about taking your own life,get help right away. You can go to your nearest emergency department or call: ??? Your local emergency services (911 in the [place] ??? A suicide crisis helpline, such as the National Suicide Prevention Lifeline at or 362 in the [place] This is open 24 hours a day. Summary ??? Alcohol abuse and dependence can have a negative effect on your life. Drinking too much or too often can lead to addiction. ??? If you drink alcohol, limit how much you use. ??? If you are having trouble keeping your drinking under control, find ways to change your behavior. Hobbies, calming activities, exercise, or support groups can help. ??? If you feel you need help with changing your drinking habits, talk with your health care provider, a good friend, or a therapist, or go to an AA group. This information is not intended to replace advice given to you by your health care provider. Make sure you discuss any questions you have with your health care provider. Document Revised: 07/01/2022 Document Reviewed: 10/15/2019 [employer] Patient Education ?? 2022 [email or web address]. Follow Up Care 02/23/2023 14:24:30 With:Cheli Gupta APRN Address: [address] [place], [place] [id number]- When:1 to 2 weeks Comments:MondayMarch 10 at 2:15 Pharmacology Note * Song Sousa: PERFORM Event Display: Pharmacy Note Authored Date: [id number] med hx via SS review and pt interview. pt a bit tangential but appears a decent hx. reprots startedseroquel for sleep months ago but did not help so no longer taking. Discharge instructions * Lindsey Ye: MODIFY Lindsey Ye: MODIFY Event Display: Discharge Instructions Authored Date: [id number] MATT JOSE MARIA D :1960 Age:62 years Sex:Male Visit Date:02/23/2023 Primary Care Physician: Cheli Gupta APRN Hospital Discharge Instructions We would like to thank you for allowing us to assist you with your healthcare needs. The following includes patient education materials and information regarding your injury/illness. Your Next Steps The Following Equipment Has Been Ordered for You Home Equipment - Cane Medications What How Much When Why Instructions Next Dose Changed magnesium oxide (magnesium oxide 250 mg oral tablet) 1 tab Oral (given by mouth) Every day Unchanged cholecalciferol (Vitamin D3 2000 intl units oral capsule) 1 Capsules Oral (given by mouth) Every morning Unchanged folic acid (folic acid 0.4 mg oral tablet) 1 tab Oral (given by mouth) Every day Unchanged hydrOXYzine (hydrOXYzine hydrochloride 50 mg oral tablet) 1 tab Oral (given by mouth) 3 times a day as needed for as needed for anxiety Unchanged ibuprofen (ibuprofen 200 mg oral tablet) 2 tab Oral (given by mouth) Every 4 hours as needed for as needed for fever Unchanged losartan (losartan 50 mg oral tablet) 1 tab Oral (given by mouth) Every morning blood pressure Unchanged pantoprazole (pantoprazole 40 mg oral delayed release tablet) 1 tab Oral (given by mouth) Every morning Unchanged sertraline (sertraline 50 mg oral tablet) 1 tab Oral (given by mouth) Every morning Unchanged thiamine (thiamine 100 mg oral tablet) 1 tab Oral (given by mouth) Every day Your Summary Your Care Team Admitting Physician - Nicci ALANIZ, John Attending Physician - Nicci ALANIZ, John Primary Care Physician - Cheli Gupta APRN Your Diagnosis Hypokalemia Alcohol withdrawal Hypomagnesemia Insomnia Hypertension Alcohol abuse Problems Ongoing - Any problem that you are currently receiving treatment for. Alcohol use with withdrawal Tests Performed/Pending Alcohol Lvl Automated Diff BMP CBC w/ Diff Comprehensive Metabolic Panel Hepatic Function Panel Lactic Acid Magnesium Level Phosphorus Level Potassium Level Troponin-I Vitamin B12 & Folate Level Discharge Vitals Temperature??(Temporal Artery) 97.5 ??F (36.4 ??C) Heart Rate??(Peripheral) 71 Heart Rate??(Monitored) 73 Respiratory Rate?? 16 Blood Pressure?? 90/71?? Weight?? 140.68 lb (63.8 kg) Allergies Cats Patient Name:JOSE MARIA GUTIERREZ I have received this information and my questions have been answered. Patient/Potato Chip Maker Name: Patient/Potato Chip Maker Signature: Relationship to Patient: Witness Name/Signature: Date: Electronically Signed on: 02/27/2023 11:25 EDTSigned by:BARBARA * Event Display: Discharge Instructions EKG study * Event Display: Telemetry Strips Physician Emergency department Note * Denise Garcia APRN: PERFORM Event Display: ED Note Physician Authored Date: [id number] JOSE MARIA GUTIERREZ :1960 Age:62 years Sex:Male Visit Date:02/23/2023 Primary Care Physician: Cheli Gupta APRN Basic Information Time Seen: Denise Garcia APRN / 02/23/2023 14:40 Chief Complaint Pt presents to ED via EMS c/o generalized weakness x weeks following increased in daily ETOH intake x 4 weeks. Denies pain. Last drink at 2200 last night History Of Present Illness: Patient is a 62-year-old male with a past medical history??of??alcohol misuse who presents emergency department today??with a chief complaint??of generalized weakness. ??He states that he??has a history of chronic alcoholism??with abstinence but has had??increased stressors??and??has been threatened to be evicted from his??apartment related to his alcohol use, he states that he??has been??on a hutchins for the last 3 to 4 weeks??drinking 1/5 of estee and a sixpack of beer daily.?He reports that he is concerned over dehydration, stating that he has not been eating appropriately over the lastfew weeks, only drinking alcohol.He states that he has generalized weakness and unsteadiness with ambulation. ??He reports that he has withdrawn from alcohol before with no??noted seizure or delirium. Review of Systems: General: Denies fever, chills, night sweats, unintentional weight changes, changes in appetite. Skin: Denies rashes, lesions, ulcerations, erythema, swelling, discoloration. HEENT: (+)??headache, visual changes, changes in hearing, sore throat, hoarseness, difficulty swallowing, eye pain or drainage, ear pain or drainage, nasal discharge, enlarged lymph nodes, or neck tenderness. Resp: Denies cough, wheezing, shortness of breath, orthopnea, CV: Denies chest pain, chest pressure, palpitations, syncope, edema. GI:?? (+)??nausea, vomiting, abdominal pain MS: Denies joint pain, joint swelling, muscle cramps, muscle weakness, stiffness Neuro: Denies weakness, paresthesias, seizures, tremors, dizziness. Physical Exam Vitals & Measurements T:??36.9?C ??(Temporal Artery)?? HR:??95??(Peripheral)?? HR:??93??(Monitored)?? RR:??20?? BP:??153/89?? SpO2:??98%?? HT:??165.000??cm?? WT:??64.00??kg??(Estimated)?? O2 Therapy:??Room air?? General:?? alert and oriented x3. Skin: No concerning lesions in examined areas. Head: Normal cephalic without trauma or injury. Neck: Supple, nontender, normal range of motion Eye: Pupils reactive. ??Conjunctiva clear. Sclera nonicteric. ??No swelling, obvious foreign bodies. ??Extraocular movement intact. Cardiovascular:??tachycardic rate and rhythm. ??No murmur, rubs, or gallops. Respiratory: Clear to auscultation bilaterally. ??No wheezes, rales, rhonchi. Chest: No deformity. ??Nontender, normal inspiration and expiration. Abdomen: Soft, nontender. ??No peritoneal signs, rigidity, guarding. ??No CVA tenderness. Musculoskeletal:??Tremulous, unsteady gait Medical Decision Making: Patient was evaluated in the emergency department for alcohol withdrawal. ??Vital signs were obtained and reviewed, patient was tachycardic??just over 100,??normotensive and afebrile.?? He received aliter of normal saline and a banana bag at a controlled rate??Labs reflect a white count of 5.4, hemoglobin and hematocrit of 13.6 and 37.5, platelets are??100, metabolic panel notes a sodium of 130,potassium of 2.5, with elevated LFTs with an alk phos of 134, ALT 140 and ALT of 131, BUN is 12, creatinine is 0.7, lactic is 1.6, troponin is negative, alcohol is negative.Patient received a milligram of IV Ativan for tachycardia, tremulousness CIWA initiated.?? He received 40 of p.o.??liquid potassium and 2 rounds IV??potassium.?? The hospitalist service was??contacted to evaluate for??admission as patient continues to be tremulous, weak and unsteady??and for potassium replacement. Procedure No Qualifying Data Assessment/Plan 1.??Hypokalemia??E87.6 2.??Alcohol withdrawal??F10.939 Orders: potassium chloride, 10 mEq = 100 mL, IV Piggyback, Injection, every 2 hr for 2 doses, Administer over: 60 minutes, First Dose: 02/23/23 15:35:00 EDT, Stop Date: 02/23/23 19:34:00 EDT, Physician Stop,100 mL/hr Troponin-I, Blood, Routine, 02/23/23 18:12:00 EDT, Once, Nurse collect Medication Reconciliation Unchanged cholecalciferol (Vitamin D3 2000 intl units oral capsule)1 Capsules Oral (given by mouth) every morning. ?? hydrOXYzine (hydrOXYzine hydrochloride 50 mg oral tablet)1 tab Oral (given by mouth) 3 times a day as needed as needed for anxiety. ?? losartan (losartan 50 mg oral tablet)1 tab Oral (given by mouth) every morning. ?? magnesium [id number] Milligrams Oral (given by mouth) every morning. ?? pantoprazole (pantoprazole 40 mg oral delayed release tablet)1 tab Oral (given by mouth) every morning. ?? QUEtiapine (SEROquel 50 mg oral tablet)1 tab Oral (given by mouth) every night at bedtime. ?? sertraline (sertraline 50 mg oral tablet)1 tab Oral (given by mouth) every morning. ?? thiamine (thiamine 100 mg oral tablet)1 tab Oral (given by mouth) every day. Problem List/Past Medical History Ongoing Alcohol use with withdrawal Historical No qualifying data Medication Administration Given Ativan, 1 mg, IV potassium chloride, 10 mEq, 10 mEq, IV Piggyback potassium chloride 20 mEq/15 mL oral liquid, 40 mEq, Oral. For: Hypokalemia,??Alcohol withdrawal Allergies Cats Social History Electronic Cigarette/Vaping Electronic Cigarette Use: Never. Home/Environment Lives with Alone. Living situation: Home/Independent. Tobacco Never tobacco user Tobacco Use:. Lab Results CBC and Differential?? LATEST RESULTS?? HISTORICAL RESULTS?? WBC?? 02/23/23 14:42?? 5.4?? 10/21/22?? 9.5?? RBC?? 02/23/23 14:42?? 4.15 ??Low?? 10/21/22?? 3.74 ??Low?? Hgb?? 02/23/23 14:42?? 13.6 ??Low?? 10/21/22?? 12.6 ??Low?? Hct?? 02/23/23 14:42?? 37.5 ??Low?? 10/21/22?? 36.4 ??Low?? MCV?? 02/23/23 14:42?? 90.4?? 10/21/22?? 97.3 ??High?? MCH?? 02/23/23 14:42?? 32.8 ??High?? 10/21/22?? 33.7 ??High?? MCHC?? 02/23/23 14:42?? 36.3 ??High?? 10/21/22?? 34.6?? RDW-CV?? 02/23/23 14:42?? 13.1?? 10/21/22?? 13.2?? Platelets?? 02/23/23 14:42?? 100 ??Low?? 10/21/22?? 207?? MPV?? 02/23/23 14:42?? 10.5 ??High?? 10/21/22?? 9.6?? Neutro Auto?? 02/23/23 14:42?? 62.8?? 10/21/22?? 63.4?? Lymph Auto?? 02/23/23 14:42?? 22.6?? 10/21/22?? 27.0?? [place] Auto?? 02/23/23 14:42?? 13.1 ??High?? 10/21/22?? 7.2?? Eos, Auto?? 02/23/23 14:42?? 0.70?? 10/21/22?? 1.20?? Basophil Auto?? 02/23/23 14:42?? 0.4?? 10/21/22?? 0.8?? Imm Gran Auto?? 02/23/23 14:42?? 0.4?? 10/21/22?? 0.4?? Neutro Absolute?? 02/23/23 14:42?? 3.4?? 10/21/22?? 6.0?? Lymph Absolute?? 02/23/23 14:42?? 1.2?? 10/21/22?? 2.6?? [place] Absolute?? 02/23/23 14:42?? 0.7 ??High?? 10/21/22?? 0.7 ??High?? Eos Absolute?? 02/23/23 14:42?? 0.0?? 10/21/22?? 0.1?? Baso Absolute?? 02/23/23 14:42?? 0.0?? 10/21/22?? 0.1?? Imm Gran Absolute?? 02/23/23 14:42?? 0.02?? 10/21/22?? 0.04?? Slide Review?? 02/23/23 14:42?? Not Indicated?? 10/21/22?? Not Indicated? Routine Chemistry?? LATEST RESULTS?? HISTORICAL RESULTS?? Sodium Level?? 02/23/23 14:42?? 130 ??Low?? 10/21/22?? 136?? Potassium Level?? 02/23/23 14:42?? 2.5 ??Critical?? 10/21/22?? 3.6?? Chloride Level?? 02/23/23 14:42?? 97 ??Low?? 10/21/22?? 104?? CO2?? 02/23/23 14:42?? 24?? 10/21/22?? 23?? Alk Phos?? 02/23/23 14:42?? 134 ??High?? 10/20/22?? 269 ??High?? AST?? 02/23/23 14:42?? 140 ??High?? 10/20/22?? 167 ??High?? ALT?? 02/23/23 14:42?? 131 ??High?? 10/20/22?? 120 ??High?? BUN?? 02/23/23 14:42?? 12?? 10/21/22?? 15?? Glucose Level?? 02/23/23 14:42?? 102?? 10/21/22?? 80?? Creatinine Level?? 02/23/23 14:42?? 0.70?? 10/21/22?? 1.12?? BUN/Creat Ratio?? 02/23/23 14:42?? 17.1?? 10/21/22?? 13.4?? eGFR CKD-EPI?? 02/23/23 14:42?? 104?? 10/21/22?? 74?? Calcium Level?? 02/23/23 14:42?? 8.2 ??Low?? 10/21/22?? 8.1 ??Low?? Protein Total?? 02/23/23 14:42?? 5.6 ??Low?? 10/20/22?? 6.7?? Albumin Level?? 02/23/23 14:42?? 2.9 ??Low?? 10/20/22?? 3.5?? Globulin?? 02/23/23 14:42?? 2.7?? 10/20/22?? 3.2?? A/G Ratio?? 02/23/23 14:42?? 1.1?? 10/20/22?? 1.1?? Bilirubin Total?? 02/23/23 14:42?? 4.1 ??High?? 10/20/22?? 3.2 ??High?? Anion Gap?? 02/23/23 14:42?? 9.0?? 10/21/22?? 9.0?? Lactic Acid Lvl?? 02/23/23 14:42?? 1.6? Osmolality?? 02/23/23 14:42?? 261 ??Low?? 10/21/22?? 272 ??Low? Cardiac Isoenzymes?? LATEST RESULTS?? HISTORICAL RESULTS?? Troponin-I?? 02/23/23 14:42?? 0.01?? 10/20/22?? 0.03? Serum Toxicology?? LATEST RESULTS?? HISTORICAL RESULTS?? Ethanol Level?? 02/23/23 14:42?? See Comment?? 10/20/22?? 0.01?? Instr Ethanol Lvl?? 02/23/23 14:42?? <5?? 10/20/22?? 12 ??High? Electronically Signed on 02/23/23 06:13 PM Denise Garcia APRN Nutrition and dietetics Progress note * Kenzie Brown: PERFORM Event Display: Nutrition Note Authored Date: [id number] Assessment and Monitoring ?? Reason for Referral:??education ? Nutrition Assessment: ?? Referral placed for education. Not appropriate at this time. On precedex drip??for alcohol??withdrawal. and ativan/ Was sleeping/ didn't??disturb.??K+ 2.5 @ admit- improving with replacement. Intakes??are good so far. Can offer protein shakes prn if pos diminish. Enc adequate pro/cielo as accepts.??BMI 23. Skin intact. Follow up better time when able.? Nutrition Goals Pos >75% of meals lytes wnl skin w/o open areas Nutrition Interventions Regular diet protein shake prn Anthropometrics/Estimated Needs Fkdgbn45.3 kg(Recorded: 02/24/2023 07:30 EDT) Estimated Energy Needs: 1550-1860kcal (25-30kcal/kg actual BW) Estimated Fluid Needs: 1550-1860ml (1ml/kcal) Estimated Protein Needs: 62-74g (1.0-1.2g/kg actual BW) Reason for Visit Pt presents to ED via EMS c/o generalized weakness x weeks following increased in daily ETOH intake x 4 weeks. Denies pain. Last drink at 2200 last night Problem List/Past Medical History Ongoing Alcohol use with withdrawal Historical No qualifying data Social History Electronic Cigarette/Vaping Electronic Cigarette Use: Never. Home/Environment Lives with Alone. Living situation: Home/Independent. Tobacco Never tobacco user Tobacco Use:. Diet Orders Diet Order, 02/23/23 18:09:00 EDT, Regular Allergies Cats Nutrition Lab Results Test Name Test Result Date/Time WBC 5.4 K/mcL 02/23/2023 14:42 EDT Hgb 13.6 g/dL 02/23/2023 14:42 EDT Hct 37.5 % 02/23/2023 14:42 EDT MCV 90.4 fL 02/23/2023 14:42 EDT Platelets 100 K/mcL 02/23/2023 14:42 EDT Sodium Level 132 mmol/L 02/24/2023 07:31 EDT Potassium Level 3.2 mmol/L 02/24/2023 07:31 EDT Chloride Level 102 mmol/L 02/24/2023 07:31 EDT CO2 24 mmol/L 02/24/2023 07:31 EDT Alk Phos 119 IntlUnit/L 02/24/2023 07:31 EDT ALT 113 IntlUnit/L 02/24/2023 07:31 EDT BUN 10 mg/dL 02/24/2023 07:31 EDT Glucose Level 84 mg/dL 02/24/2023 07:31 EDT Creatinine Level 0.61 mg/dL 02/24/2023 07:31 EDT Phosphorus Level 3.9 mg/dL 02/23/2023 14:42 EDT Albumin Level 2.7 g/dL 02/24/2023 07:31 EDT Bilirubin Total 3.0 mg/dL 02/24/2023 07:31 EDT Magnesium Level 2.3 mg/dL 02/24/2023 07:31 EDT Medications Inpatient calcium (as carbonate) 500 mg oral tablet, 500 mg= 1 tab, Oral, QID(ACHS), PRN cholecalciferol 1000 intl units oral tablet, 100 mcg, Oral, every morning dexmedetomidine IV additive 400 mcg + Premix Diluent 100 mL enoxaparin, 40 mg= 0.4 mL, Subcutaneous, Daily ipratropium-albuterol 0.5 mg-2.5 mg/3 mL inhalation solution, 3 mL, NEB, every 3 hr, PRN LORazepam, 2 mg= 1 mL, IV Push, every 1 hr, PRN losartan, 25 mg= 1 tab, Oral, every morning NS drip 1,000 mL, 1000 mL, IV pantoprazole, 40 mg= 1 tab, Oral, every morning sertraline, 50 mg= 1 tab, Oral, every morning thiamine, 100 mg= 1 tab, Oral, Daily Home folic acid 0.4 mg oral tablet, 0.4 mg= 1 tab, Oral, Daily hydrOXYzine hydrochloride 50 mg oral tablet, 50 mg= 1 tab, Oral, TID, PRN ibuprofen 200 mg oral tablet, 400 mg= 2 tab, Oral, every 4 hr, PRN losartan 50 mg oral tablet, 50 mg= 1 tab, Oral, every morning magnesium oxide 250 mg oral tablet, 250 mg= 1 tab, Oral, Daily pantoprazole 40 mg oral delayed release tablet, 40 mg= 1 tab, Oral, every morning sertraline 50 mg oral tablet, 50 mg= 1 tab, Oral, every morning thiamine 100 mg oral tablet, 100 mg= 1 tab, Oral, Daily Vitamin D3 2000 intl units oral capsule, 50 mcg= 1 cap, Oral, every morning Electronically Signed on 02/24/23 04:03 PM Kenzie Brown Progress note * John Grajeda MD: PERFORM Event Display: Progress Note - Physician Authored Date: [id number] JOSE MARIA GUTIERREZ :1960 Age:62 years Sex:Male Visit Date:02/23/2023 Primary Care Physician: Cheli Gupta APRN Anticipated Discharge Date Tomorrow. Subjective Patient states he feels quite weak. ??Still mildly jittery. Review of Systems Constitutional: Feeling weak. ENT:??No ear pain, nasal congestion, sore throat Respiratory:??No shortness of breath, cough Cardiovascular:??No Chest pain, palpitations, syncope Gastrointestinal:??No nausea, vomiting, diarrhea Genitourinary:??No hematuria Musculoskeletal: Chronic back pain from laying in bed. Neurologic: Tremors. ??No confusion. Objective Vitals & Measurements T:??36.8?C ??(Temporal Artery)?? TMIN:??36.4?C ??(Temporal Artery)?? TMAX:??37.0?C ??(Temporal Artery)?? HR:??88??(Monitored)?? RR:??15?? BP:??136/70?? SpO2:??86%?? Pain Score:??0?? O2 Therapy:??Room air?? Physical Exam General: Oriented x4..?? HENT: No sign of trauma..?? Lungs:??Clear to auscultation and percussion, non-labored respiration.?? Heart:??Normal rate, regular rhythm, no murmur, gallop or edema. Abdomen:??Soft, non-tender, non-distended, normal bowel sounds, no masses.?? Musculoskeletal:??Normal range of motion and strength, no tenderness or swelling. Skin:??Skin is warm, dry and pink, no rashes or lesions. Neurologic: Cranial nerves II to XII are intact. ??No focal signs,??mild tremulousness that is improved. Lab Results Last 24 Hours?? Chemistry ? Event Name?? Event Result?? Date/Time?? Sodium Level 131 mmol/L??Low 02/26/23 03:35:00 Potassium Level 3.2 mmol/L??Low 02/26/23 03:35:00 Chloride Level 102 mmol/L 02/26/23 03:35:00 CO2 23 mmol/L 02/26/23 03:35:00 Alk Phos 146 IntlUnit/L??High 02/26/23 03:35:00 AST 84 IntlUnit/L??High 02/26/23 03:35:00 ALT 85 IntlUnit/L??High 02/26/23 03:35:00 BUN 6 mg/dL??Low 02/26/23 03:35:00 Glucose Level 119 mg/dL??High 02/26/23 03:35:00 Creatinine Level 0.61 mg/dL 02/26/23 03:35:00 BUN/Creat Ratio 9.8 02/26/23 03:35:00 eGFR CKD-EPI 108 mL/min/1.73 m2 02/26/23 03:35:00 Calcium Level 8.2 mg/dL??Low 02/26/23 03:35:00 Protein Total 4.9 g/dL??Low 02/26/23 03:35:00 Albumin Level 2.5 g/dL??Low 02/26/23 03:35:00 Globulin 2.4 02/26/23 03:35:00 A/G Ratio 1 02/26/23 03:35:00 Bilirubin Total 1.4 mg/dL??High 02/26/23 03:35:00 Bilirubin Direct 0.6 mg/dL??High 02/26/23 03:35:00 Anion Gap 6 02/26/23 03:35:00 Magnesium Level 1.5 mg/dL??Low 02/26/23 03:35:00 Osmolality 261 mOsm/kg??Low 02/26/23 03:35:00 ? Assessment/Plan 1.??Hypokalemia??E87.6 Continue twice daily replenishment. 2.??Alcohol withdrawal??F10.939 He is off Precedex,??lorazepam as needed as part of protocol. 3.??Hypomagnesemia??E83.42 Twice daily replenishment 4.??Insomnia??G47.00 Was receiving lorazepam as needed. 5.??Hypertension??I10 I recall the patient being on metoprolol in the past. ??25 mg p.o. twice daily. 6.??Alcohol abuse??F10.10 health services director. ??He is not interested in the facility. Orders: ibuprofen, 600 mg = 1 tab, Oral, Tab, Once, First Dose: 02/26/23 11:00:00 EDT, Stop Date: 02/26/23 11:00:00 EDT, Physician Stop, Routine Lidocaine Patch Removal, 1 EA, TD, Misc, every 24 hr, First Dose: 02/26/23 11:00:00 EDT, Routine lidocaine 5% topical film, 1 patches, TD, Film, Daily, First Dose: 02/27/23 9:00:00 EDT, Routine magnesium oxide, 400 mg = 1 tab, Oral, Tab, BID for 30 days, First Dose: 02/26/23 21:00:00 EDT, Stop Date: 03/28/23 20:59:00 EDT, Physician Stop, Routine magnesium oxide, 400 mg = 1 tab, Oral, Tab, BID for 30 days, First Dose: 02/26/23 10:15:00 EDT, Stop Date: 03/28/23 8:59:00 EDT, Physician Stop, Routine Metoprolol Tartrate, 25 mg = 1 tab, Oral, Tab, BID for 30 days, First Dose: 02/26/23 10:00:00 EDT, Stop Date: 03/28/23 8:59:00 EDT, Physician Stop, Routine potassium chloride, 20 mEq = 1 tab, Oral, Tab-ER, BID for 30 days, First Dose: 02/26/23 10:15:00 EDT, Stop Date: 03/28/23 8:59:00 EDT, Physician Stop, Routine Electronically Signed on 02/26/23 10:32 AM John Grajeda MD * Event Display: Progress Note - Physician Authored Date: [id number] Attending Physician - Brief Progress Note PERMANENT 02/25/2023 16:33 [facility] - ICU JOSE MARIA GUTIERREZ Date of Service 02/25/2023 16:33 HPI/Events of Note TeleICU Physician Note I established audio/visual connection with the patient's room, reviewed the EMR . ETOH WD no distress on camera resting comfortably in bed precedex 0.25 infusion hemodynamics acceptable labs reviewed agree with plans for precedex and benzodiazepines electrolyte and vitamin infusion no new issue identiified on chart review. Interventions Major-Electrolyte abnormality - evaluation and management, Other: ETOH WD * Nicci ALANIZ, John: PERFORM Event Display: Progress Note - Physician Authored Date: [id number] JOSE MARIA GUTIERREZ Catherine :1960 Age:62 years Sex:Male Visit Date:02/23/2023 Primary Care Physician: Cheli Gupta APRN Subjective The patient says he is starting to feel better. Review of Systems Constitutional: Says he feels more clear ENT:??No ear pain, nasal congestion, sore throat Respiratory:??No shortness of breath, cough Cardiovascular:??No Chest pain, palpitations, syncope Gastrointestinal:??No nausea, vomiting, diarrhea Genitourinary:??No hematuria Musculoskeletal:??No back pain, neck pain, joint pain, muscle pain, decreased range of motion Neurologic: Tremulous Objective Vitals & Measurements T:??36.3?C ??(Temporal Artery)?? TMIN:??36.0?C ??(Temporal Artery)?? TMAX:??36.4?C ??(Temporal Artery)?? HR:??70??(Peripheral)?? HR:??71??(Monitored)?? RR:??15?? BP:??99/69?? SpO2:??98%??WT:??63.8??kg?? Pain Score:??0?? O2 Flow Rate:??1?? O2 Therapy:??Room air?? Physical Exam General: Oriented x4??but has a certain fogginess to him..?? HENT: No sign of trauma..?? Lungs:??Clear to auscultation and percussion, non-labored respiration.?? Heart: Tachycardic.. Abdomen:??Soft, non-tender, non-distended, normal bowel sounds, no masses.?? Musculoskeletal:??Normal range of motion and strength, no tenderness or swelling. Skin:??Skin is warm, dry and pink, no rashes or lesions. Neurologic: Neurological signs but still with significant tremors. Assessment/Plan 1.??Hypokalemia??E87.6 Resolved. 2.??Alcohol withdrawal??F10.939 On Precedex and lorazepam. ??Make sure lorazepam stays on board. ??Try to wean off??Precedex. 3.??Hypomagnesemia??E83.42 Corrected this morning. 4.??Insomnia??G47.00 No Seroquel currently as he is not taking. 5.??Hypertension??I10 Started at a lower dose. 6.??Alcohol abuse??F10.10 The patient says he is not interested in AA. ??He is??just in going to a program??once??personal therapy/counselor. ??health services director. ?? Time spent??on patient care today is 40 minutes. Orders: dexmedetomidine IV additive 400 mcg + Premix Diluent 100 mL, Total Volume (mL): 100, 100 mL, Soln-IV, IV, Titrate Per Protocol - See Comments, Order Duration: 30 days, Start Date: 02/24/23 11:35:00 EDT, Stop Date: 03/26/23 11:34:00 EDT, 64 kg, Populate Charting Weight From Order, 1.71, m2 PSO Admit to Inpatient, ICU, Inpatient, 02/24/23 11:18:00 EDT, 02/23/23 18:04:00 EDT, 02/24/23 11:18:00 EDT, 2 midnights or more Vital Signs, 02/24/23 12:36:00 EDT, every 1 hr Electronically Signed on 02/25/23 10:37 AM John Grajeda MD History and physical note * John Grajeda MD: PERFORM Event Display: History and Physical Authored Date: [id number] JOSE MARIA GUTIERREZ:1960 Age:62 years Sex:Male Visit Date:02/23/2023 Primary Care Physician: Cheli Gupta APRN Chief Complaint Pt presents to ED via EMS c/o generalized weakness x weeks following increased in daily ETOH intake x 4 weeks. Denies pain. Last drink at 2200 last night History of Present Illness This is a??62-year-old male who I am quite familiar with. ??He has a history of severe alcoholism. ??He has hypertension. ??He has anxiety. ?? When I first admitted the patient who was trying to detox himself he had multiple??severe??alcohol induced abnormalities including lactic acidosis, ketoacidosis.?? Anemia. ??He does not have those onthis visit. ?? There was a time his detox required Precedex. ?? The patient comes in with a general complaint of weakness. ??The patient stopped drinking last night. ??He feels he is dehydrated. ??He feels shaky. ?? In the emergency room his laboratory abnormalities are nonobstructing with the exception of potassium of 2.5.?? This is being replenished and repeated and I have asked for magnesium level. ?? When I see the patient he is tremulous. ??With his history of having significant detox before I think it is important to bring the patient in??rather than to try at home and to be aggressive with detox protocol.? To do so, I will place the patient in the ICU as a MedSurg patient so he has??the amount of carerequired for aggressive detox protocol. ??If he requires transition??to an alternate medication??then he will also be??an appropriate place for such. Review of Systems Constitutional: Generalized weakness, feels dehydrated. ENT:??No ear pain, nasal congestion, sore throat Respiratory:??No shortness of breath, cough Cardiovascular:??No Chest pain, palpitations, syncope Gastrointestinal:??No nausea, vomiting, diarrhea Genitourinary:??No hematuria Musculoskeletal:??No back pain, neck pain, joint pain, muscle pain, decreased range of motion Neurologic: Tremulous and anxious. Physical Exam Vitals & Measurements T:??36.9?C ??(Temporal Artery)?? HR:??95??(Peripheral)?? HR:??93??(Monitored)?? RR:??20?? BP:??153/89?? SpO2:??98%?? HT:??165.000??cm?? WT:??64.00??kg??(Estimated)?? O2 Therapy:??Room air?? General: The patient does appear tremulous, oriented x4..?? HENT: No sign of trauma..?? Lungs:??Clear to auscultation and percussion, non-labored respiration.?? Heart: Not tachycardic at time of exam.. Abdomen: Benign bowel exam..?? Musculoskeletal:??Normal range of motion and strength, no tenderness or swelling. Skin:??Skin is warm, dry and pink, no rashes or lesions. Neurologic: Cranial nerves II to XII are intact. ??Strength, station, reflexes are even intact in his upper and lower extremities.?? Notably tremulous. Assessment/Plan 1.??Hypokalemia??E87.6 Aggressive replenishment.?Repeat level??at 9 PM. ??Magnesium needs to be added to the emergency room labs??for proper??resuscitation of potassium. 2.??Alcohol withdrawal??F10.939 Check B12 and folate, thiamine. ??Aggressive detox protocol. ??He has no history of seizure but seizure precautions as well. ??Rest of protocol the patient will have??a high level of nursing care. 3.??Hypomagnesemia??E83.42 Check magnesium level from emergency room.?? Required for potassium??replenishment. 4.??Insomnia??G47.00 Like to ascertain if he is still taking his Seroquel before giving it to him. ??Especially as he has a tendency for his QTc to be elevated, alcohol certainly could be contributory, QTc less than 500. 5.??Hypertension??I10 Maintain losartan. 6.??Alcohol abuse??F10.10 health services director. ??The patient says he would like to??quit??alcohol. ?? Time??spent on patient care today is 60 minutes Orders: cholecalciferol 1000 intl units oral tablet, 100 mcg, Oral, Tab, every morning, First Dose: 02/24/23 9:00:00 EDT, Routine enoxaparin, 40 mg = 0.4 mL, Subcutaneous, Injection, Daily, First Dose: 02/24/23 9:00:00 EDT, Routine ipratropium-albuterol 0.5 mg-2.5 mg/3 mL inhalation solution, 3 mL, NEB, Soln, every 3 hr, PRN shortness of breath, First Dose: 02/23/23 18:05:00 EDT, Physician Stop, Routine LORazepam, 2 mg = 1 mL, IV Push, Injection, every 1 hr, PRN symptoms of alcohol withdrawal, First Dose: 02/23/23 18:05:00 EDT, Routine losartan, 50 mg = 1 tab, Oral, Tab, every morning, First Dose: 02/24/23 9:00:00 EDT, Routine pantoprazole, 40 mg = 1 tab, Oral, Tab-DR, every morning, First Dose: 02/24/23 9:00:00 EDT, Routine sertraline, 50 mg = 1 tab, Oral, Tab, every morning, First Dose: 02/24/23 9:00:00 EDT, Routine thiamine, 100 mg = 1 tab, Oral, Tab, Daily for 5 days, First Dose: 02/24/23 9:00:00 EDT, Stop Date:03/01/23 8:59:00 EDT, Physician Stop, Routine Basic Metabolic Panel, Blood, Routine, 02/23/23 18:10:00 EDT, Daily, for 3 days, Lab Collect Cardiac Monitoring, 02/23/23 18:13:00 EDT Consult to Dietitian Adult, 02/23/23 18:09:00 EDT, Reason for Consult Education Diet Order, 02/23/23 18:09:00 EDT, Regular Fall Risk Precautions, 02/23/23 18:09:00 EDT Hepatic Function Panel, Blood, Stat, 02/23/23 18:09:00 EDT, every morning, Nurse collect Intake and Output, 02/23/23 18:09:00 EDT, every 12 hr (gricel), q shift, 02/23/23 21:00:00 EDT Magnesium Level, Blood, Add On, 02/23/23 18:05:00 EDT, Once, Nurse collect Magnesium Level, Blood, Routine, 02/23/23 18:10:00 EDT, Daily, for 3 days, Lab Collect Notify Provider, 02/23/23 18:05:00 EDT, for HR >110, T >101F (38.5C), seizure or severe hallucinations or delusions Notify Provider, 02/23/23 18:05:00 EDT, Constant order, of seizure activity, severe hallucincationsor delusions, or CIWA score of 19 or above Notify Provider of Vital Signs, 02/23/23 18:05:00 EDT, T > 38.3, HR > 110, Constant Indicator Occupational Therapy Evaluation and Treatment Acute, 02/23/23 18:09:00 EDT, Once Patient Condition, 02/23/23 18:09:00 EDT, Condition Guarded Phosphorus Level, Blood, Add On, 02/23/23 18:09:00 EDT, Once, Lab Collect Physical Therapy Evaluation and Treatment, 02/23/23 18:09:00 EDT, Once Potassium Level, Blood, Stat, 02/23/23 21:00:00 EDT, Once, Nurse collect PSO Admit to Inpatient, [facility], Inpatient, 02/23/23 18:04:00 EDT, 02/23/23 18:04:00 EDT, 02/23/23 18:04:00 EDT, 2 midnights or more Resuscitation Status, 02/23/23 18:09:00 EDT, Full Code Seizure Precautions, 02/23/23 18:09:00 EDT, Constant Order, 02/23/23 18:09:00 EDT Up ad Supriya, 02/23/23 18:09:00 EDT, Constant Order, at nurse's discretion, 02/23/23 18:09:00 EDT Vital Signs, 02/23/23 18:09:00 EDT, every 4 hr (gricel) Vital Signs, 02/23/23 18:05:00 EDT, Stop date 02/23/23 18:05:00 EDT, every hours after each dose ofmedication until Clinical [place] Withdrawal Assessment (CIWA) score <8 while awake. Then every 4 hours until <8 for 24 hours while awake. Vital Signs, 02/23/23 18:05:00 EDT, Constant order, Assess on admission, q1h after each dose of medication until CIWA is less than 8 while awake, and q4h if CIWA is less than 8 x 24 hours while awake Vitamin B12 & Folate Level, Blood, Stat, 02/23/23 18:09:00 EDT, Once, Nurse collect Weight, 02/24/23 5:00:00 EDT, every 24 hr Problem List/Past Medical History Ongoing Alcohol use with withdrawal Historical No qualifying data Medications Inpatient cholecalciferol 1000 intl units oral tablet, 100 mcg, Oral, every morning enoxaparin, 40 mg= 0.4 mL, Subcutaneous, Daily ipratropium-albuterol 0.5 mg-2.5 mg/3 mL inhalation solution, 3 mL, NEB, every 3 hr, PRN LORazepam, 2 mg= 1 mL, IV Push, every 1 hr, PRN losartan, 50 mg= 1 tab, Oral, every morning pantoprazole, 40 mg= 1 tab, Oral, every morning potassium chloride, 10 mEq= 100 mL, IV Piggyback, every 2 hr sertraline, 50 mg= 1 tab, Oral, every morning thiamine, 100 mg= 1 tab, Oral, Daily Home hydrOXYzine hydrochloride 50 mg oral tablet, 50 mg= 1 tab, Oral, TID, PRN losartan 50 mg oral tablet, 50 mg= 1 tab, Oral, every morning magnesium oxide, 250 mg, Oral, every morning pantoprazole 40 mg oral [...] Oral, every morning Allergies Cats Social History Electronic Cigarette/Vaping Electronic Cigarette Use: Never. Home/Environment Lives with Alone. Living situation: Home/Independent. Tobacco Never tobacco user Tobacco Use:. Lab Results Test Name Test Result Date/Time WBC 5.4 K/mcL 02/23/2023 14:42 EDT RBC 4.15 Million/mcL 02/23/2023 14:42 EDT Hgb 13.6 g/dL 02/23/2023 14:42 EDT Hct 37.5 % 02/23/2023 14:42 EDT MCV 90.4 fL 02/23/2023 14:42 EDT MCH 32.8 pg 02/23/2023 14:42 EDT MCHC 36.3 g/dL 02/23/2023 14:42 EDT RDW-CV 13.1 % 02/23/2023 14:42 EDT Platelets 100 K/mcL 02/23/2023 14:42 EDT MPV 10.5 fL 02/23/2023 14:42 EDT Neutro Auto 62.8 % 02/23/2023 14:42 EDT Lymph Auto 22.6 % 02/23/2023 14:42 EDT [place] Auto 13.1 % 02/23/2023 14:42 EDT Eos, Auto 0.70 % 02/23/2023 14:42 EDT Basophil Auto 0.4 % 02/23/2023 14:42 EDT Imm Gran Auto 0.4 % 02/23/2023 14:42 EDT Neutro Absolute 3.4 K/mcL 02/23/2023 14:42 EDT Lymph Absolute 1.2 K/mcL 02/23/2023 14:42 EDT [place] Absolute 0.7 K/mcL 02/23/2023 14:42 EDT Eos Absolute 0.0 K/mcL 02/23/2023 14:42 EDT Baso Absolute 0.0 K/mcL 02/23/2023 14:42 EDT Imm Gran Absolute 0.02 02/23/2023 14:42 EDT Slide Review Not Indicated 02/23/2023 14:42 EDT Sodium Level 130 mmol/L 02/23/2023 14:42 EDT Potassium Level 2.5 mmol/L 02/23/2023 14:42 EDT Chloride Level 97 mmol/L 02/23/2023 14:42 EDT CO2 24 mmol/L 02/23/2023 14:42 EDT Alk Phos 134 IntlUnit/L 02/23/2023 14:42 EDT AST 140 IntlUnit/L 02/23/2023 14:42 EDT ALT 131 IntlUnit/L 02/23/2023 14:42 EDT BUN 12 mg/dL 02/23/2023 14:42 EDT Glucose Level 102 mg/dL 02/23/2023 14:42 EDT Creatinine Level 0.70 mg/dL 02/23/2023 14:42 EDT BUN/Creat Ratio 17.1 02/23/2023 14:42 EDT eGFR CKD-EPI 104 mL/min/1.73 m2 02/23/2023 14:42 EDT Calcium Level 8.2 mg/dL 02/23/2023 14:42 EDT Protein Total 5.6 g/dL 02/23/2023 14:42 EDT Albumin Level 2.9 g/dL 02/23/2023 14:42 EDT Globulin 2.7 02/23/2023 14:42 EDT A/G Ratio 1.1 02/23/2023 14:42 EDT Bilirubin Total 4.1 mg/dL 02/23/2023 14:42 EDT Anion Gap 9.0 02/23/2023 14:42 EDT Lactic Acid Lvl 1.6 mmol/L 02/23/2023 14:42 EDT Osmolality 261 mOsm/kg 02/23/2023 14:42 EDT Troponin-I 0.01 ng/mL 02/23/2023 14:42 EDT Ethanol Level See Comment 02/23/2023 14:42 EDT Instr Ethanol Lvl <5 mg/dL 02/23/2023 14:42 EDT Electronically Signed on 02/23/23 06:22 PM John Grajeda MD Discharge summary * Nicci ALANIZ, John: PERFORM, MODIFY Event Display: Discharge Summary Authored Date: [id number] JOSE MARIA GUTIERREZ :1960 Age:62 years Sex:Male Visit Date:02/23/2023 Primary Care Physician: Cheli Gupta APRN Hospital Course This is a patient quite familiar with. ??He has had multiple visits to the hospital before. ?? During 1 of those visits he had severe metabolic abnormalities. ??These were all secondary to alcohol abuse. ?? And??that is his primary??pathology, continued??alcohol abuse. He does have tobacco abuse as well. ?? The patient comes in with his??last drink the night before quite tremulous. ??Says he wants to quit. ??Although he does want to do it himself. ?? I started the patient in the ICU as a MedSurg patient??understand he would take a lot of attention and may need Precedex drip. ?? That happened quite rapidly and he was on a Precedex drip, I still maintain benzo diazepam's. ?? It is now the second day that the patient is off the drip. The patient is not scoring on the CIWA scale currently. ?? The patient has worked with physical therapy. ?? Electrolytes have been replenished. ??He is ready for discharge. Physical Exam Vitals & Measurements T:??36.6?C ??(Temporal Artery)?? TMIN:??36.6?C ??(Temporal Artery)?? TMAX:??36.9?C ??(Temporal Artery)?? HR:??93??(Peripheral)?? RR:??15?? BP:??112/79?? SpO2:??99%?? Pain Score:??2?? O2 Therapy:??Room air?? General: Oriented x4, looks much better..?? HENT: No sign of trauma..?? Lungs:??Clear to auscultation and percussion, non-labored respiration.?? Heart:??Normal rate, regular rhythm, no murmur, gallop or edema. Abdomen:??Soft, non-tender, non-distended, normal bowel sounds, no masses.?? Musculoskeletal:??Normal range of motion and strength, no tenderness or swelling. Skin:??Skin is warm, dry and pink, no rashes or lesions. Neurologic: No tremors, no??focal neurological signs. Medications Inpatient calcium (as carbonate) 500 mg oral tablet, 500 mg= 1 tab, Oral, QID(ACHS), PRN cholecalciferol 1000 intl units oral tablet, 100 mcg, Oral, every morning enoxaparin, 40 mg= 0.4 mL, Subcutaneous, Daily ipratropium-albuterol 0.5 mg-2.5 mg/3 mL inhalation solution, 3 mL, NEB, every 3 hr, PRN lidocaine 5% topical film, 1 patches, TD, Daily Lidocaine Patch Removal, 1 EA, TD, every 24 hr LORazepam, 1 mg= 1 tab, Oral, every 6 hr, PRN LORazepam, 2 mg= 1 mL, IV Push, every 1 hr, PRN magnesium oxide, 400 mg= 1 tab, Oral, BID Metoprolol Tartrate, 25 mg= 1 tab, Oral, BID nicotine 21 mg/24 hr Transderm ER Film, 1 patches, TD, Daily Nicotine Patch Removal, 1 EA, TD, Daily pantoprazole, 40 mg= 1 tab, Oral, every morning potassium chloride, 20 mEq= 1 tab, Oral, BID sertraline, 50 mg= [...] release, 20 mEq= 1 tab, Oral, BID sertraline 50 mg oral tablet, 50 mg= 1 tab, Oral, every morning thiamine 100 mg oral tablet, 100 mg= 1 tab, Oral, Daily Vitamin D3 2000 intl units oral capsule, 50 mcg= 1 cap, Oral, every morning Social History Electronic Cigarette/Vaping Electronic Cigarette Use: Never. Home/Environment Lives with Alone. Living situation: Home/Independent. Tobacco Never tobacco user Tobacco Use:. Discharge Plan 1.??Hypokalemia??E87.6 Continue replenishment for now. 2.??Alcohol withdrawal??F10.939 He is no longer scoring on the alcohol detox scale. 3.??Hypomagnesemia??E83.42 Replenishment for now. 4.??Hypertension??I10 Metoprolol. 5.??Alcohol abuse??F10.10 We have offered??all social resources. ?? Time??spent in patient care today is 40 minutes. Orders: magnesium oxide 400 mg (241.3 mg elemental magnesium) oral tablet, 400 mg = 1 tab, Oral, BID, # 60 tab, 0 Refill(s), [facility]acy: [id number], 165, cm, 02/23/23 14:34:00 EDT, Height/Length Dosing, 64, kg, 02/23/23 14:34:00 EDT, Weight Dosing Metoprolol Tartrate 25 mg oral tablet, 25 mg = 1 tab, Oral, BID, # 60 tab, 0 Refill(s), Pharm[facility]: [facility] #[id number], 165, cm, 02/23/23 14:34:00 EDT, Height/Length Dosing, 64, kg, 02/23/23 14:34:00 EDT,Weight Dosing nicotine 21 mg/24 hr Transderm ER Film, 1 patches, TD, Film, Daily, First Dose: 02/26/23 16:29:00 EDT, NOW Nicotine Patch Removal, 1 EA, TD, Misc, Daily, First Dose: 02/27/23 9:00:00 EDT, Routine potassium chloride 20 mEq oral tablet, extended release, 20 mEq = 1 tab, Oral, BID, # 60 tab, 0 Refill(s), [facility]: [facility][id number], 165, cm, 02/23/23 14:34:00 EDT, Height/Length Dosing, 64, kg, 02/23/23 14:34:00 EDT, Weight Dosing Discharge Patient, 02/27/23 11:17:00 EDT, Home Independently Fall Risk Precautions, 02/26/23 12:48:00 EDT, Constant order, pt has had multiple recent falls. [facility] 02/26/23 12:54:00 EDT, 02/26/23 12:54:00 EDT, 02/26/23 12:54:00 EDT, Less than 96 hours Shift Assessment Adult, 02/24/23 2:26:00 EDT, every 6 hr Vital Signs, 02/24/23 12:36:00 EDT, every 4 hr All Diagnoses This Visit Hypokalemia Alcohol withdrawal Hypomagnesemia Hypertension Alcohol abuse Patient Education Alcohol Abuse and Dependence Information, Adult Follow Up With When Contact Information Cheli Gupta APRN Within 1 to 2 weeks [address] [place] [address]- Additional Instructions: Medication Reconciliation New Prescription metoprolol (Metoprolol Tartrate 25 mg oral tablet)1 tab Oral (given by mouth) 2 times a day. Refills: 0. ?? potassium chloride (potassium chloride 20 mEq oral tablet, extended release)1 tab Oral (given by mouth) 2 times a day. Refills: 0. ?? Changed magnesium oxide (magnesium oxide 400 mg (241.3 mg elemental magnesium) oral tablet)1 tab Oral (given by mouth) 2 times a day. Refills: 0. ?? Unchanged cholecalciferol (Vitamin D3 2000 intl [...] as needed as needed for fever. ?? pantoprazole (pantoprazole 40 mg oral delayed release tablet)1 tab Oral (given by mouth) every morning. ?? sertraline (sertraline 50 mg oral tablet)1 tab Oral (given by mouth) every morning. ?? thiamine (thiamine 100 mg oral tablet)1 tab Oral (given by mouth) every day. ?? Discontinued losartan (losartan 50 mg oral tablet)1 tab Oral (given by mouth) every morning. Electronically Signed on 02/27/23 11:30 AM John Grajeda MD Patient Care team information Care Team Personnel Name: Cheli Gupta APRN Position: Physician Member Role: Primary Care Physician Address: Address: [place] [address]- [place] Name: Denise Garcia APRN Position: Physician Member Role: Physician Address: Address: [address] [place] [id number] Name: Ines Garvey Position: Nurse Member Role: ED Nurse
[2023-04-25 12:59] LABS: Abs Immature Grans 0.01 10^3/uL (0.0-0.06); Absolute Basophil Count 0.05 10^3/uL (0.0-0.2); Absolute Eosinophil Count 0.07 10^3/uL (0.0-0.7); Absolute Lymphocyte Count 1.39 10^3/uL (1.2-3.4); Absolute Monocyte Count 0.79 10^3/uL (0.1-0.8); Absolute Neutrophil Count 3.76 10^3/uL (1.2-6.7); Basophils % 0.8; Eosinophils % 1.2; HCT 50.5 % (40.0-50.0); HGB 17.1 g/dL (13.5-17.5); Immature Grans % 0.2; Lymphocytes % 22.9; MCH 33.4 pg (27.0-33.0); MCHC 33.9 % (32.0-36.0); MCV 99 fL (80-95); Neutrophils % 61.9; Platelet Count 268 10^3/uL (130-400); RBC 5.12 10^6/uL (4.36-5.78); RDW 13.4 % (11.8-14.1); RDW-SD 49.2 fL; WBC 6.07 10^3/uL (4.4-10.8)
[2023-04-25 13:15] LABS: ALT 29 U/L (16-63); AST 33 U/L (15-37); Albumin 3.3 g/dL (3.4-5.0); Alkaline Phosphatase 131 U/L (46-116); Anion Gap 9.8 mmol/L (3-11); BUN 3 mg/dL (7-18); Bilirubin, Total 0.4 mg/dL (0.2-1.0); CO2 29.2 mmol/L (21.0-32.0); CREATININE 0.9 mg/dL (0.70-1.30); Calcium 8.9 mg/dL (8.5-10.1); Chloride 102 mmol/L (98-107); ETHANOL BLOOD 297.5 mg/dL (<10); Estimated GFR 95.97 (mL/min/1.73m2); Glucose 111 mg/dL (74-106); Potassium 3.2 mmol/L (3.5-5.1); Sodium 141 mmol/L (136-145); Total Protein 7.1 g/dL (6.4-8.2)
--- NOTE | 2023-04-25 13:32 | NUR.NOTE ---
Faxed referral to Neurology. This is for headaches and should be scheduled in 1-2 weeks. Nursing Note:
[2023-04-25 15:01] LABS: *AMPHETAMINES SCREEN URINE Negative (Negative); *BARBITURATES SCREEN URINE Negative (Negative); *BENZODIAZEPINES SCREEN URINE Negative (Negative); Cannabinoids THC Negative (Negative); Cocaine Screen,Urine Negative (Negative); METHADONE URINE SCREEN Negative (Negative); OPIATES URINE SCREEN Negative (Negative)
[2023-04-25 15:02] LABS: Tricyclic Antidepressants Negative (Negative)
--- NOTE | 2023-04-26 21:10 | ED.GENADUL_ITS ---
Discharge Plan Disposition Patient Disposition: Eloped Discharge Details Clinical Impression: Alcohol abuse Primary Care Provider: Cheli Gupta ED Provider: Sera Minor Home Meds and New Rx's Prescriptions: Continued quetiapine [Seroquel] 50 mg Tablet 100 mg PO DAILY naltrexone 50 mg Tablet 50 mg PO DAILY thiamine HCl (vitamin B1) 100 mg Tablet 100 mg PO DAILY hydroxyzine HCl 50 mg Tablet 50 mg PO TID folic acid 400 mcg Tablet 0.4 mg PO DAILY potassium chloride 20 mEq Tablet,Er Particles/Crystals 20 meq PO 1XD pantoprazole 40 mg Tablet,Delayed Release (Dr/Ec) 40 mg PO DAILY gabapentin 300 mg Capsule 300 mg PO TID albuterol sulfate 90 mcg/actuation Hfa Aerosol Inhaler 2 puff INHALATION Q6H PRN metoprolol tartrate 25 mg Tablet 25 mg PO BID quetiapine 50 mg Tablet 50 mg PO QHS cholecalciferol (vitamin D3) [Vitamin D3] 50 mcg (2,000 unit) Capsule 50 mcg PO DAILY magnesium oxide 400 mg magnesium Tablet 400 mg PO BID Discharge Data Discharge Date/Time-TO BE ENTERED AT DEPARTURE: 04/25/23 15:19 Medical Decision Making 59-year-old male, alert, oriented, ambulatory with steady gait, of decisional capacity GCS 15, no visible signs of head trauma, no abdominal tenderness, pupils equal round reactive to light and accommodation, no peripheral edema, lungs clear to auscultation, cardiac rate rhythm regular alert and oriented x4 Long discussion with patient, he is not exhibiting any signs of withdrawal, he is not actively suicidal and he does have depression, he did touch base with cane and recovery and K chest to assess the patient, I also spoke with his sister and did relay that we are unable to admit the patient for detox here at this facility, his labs do not show significant acute abnormality, they expressed frustration however they are understanding, pending [facility] evaluation He eloped, ambulatory with steady gait, of decisional capacity and has declined additional resources, of note our group care worker was currently looking for detox placement less willing to accept Medicaid HPI General Date/Time Provider Initiated Documentation: 04/25/23 12:35 . HPI Narrative: This 62-year-old gentleman presents for report of alcohol use SI, depression. States he has been drinking approximately 40 years. Denies any chest pain, shortness of breath, dizziness, weakness, his last drink was 1/2-hour prior to arrival, today he has had half liter of bourbon and sixpack of beer. He is requesting detox and evaluation for suicidal ideation. He denies history of of alcohol withdrawal in the past. He states he has been to approximately 6 detox facilities in the past several years. Last detox was approximately a year ago [place]. Denies any attempts to harm self today. Denies any additional illicit drug use. Related Data Home Medications Medication Instructions Recorded Confirmed albuterol sulfate 90 mcg/actuation 2 puff inhalation Q6H PRN 04/25/23 04/25/23 aerosol inhaler cholecalciferol (vitamin D3) 50 50 mcg PO DAILY 04/25/23 04/25/23 mcg (2,000 unit) capsule (Vitamin D3) folic acid 400 mcg tablet 0.4 mg PO DAILY 04/25/23 04/25/23 gabapentin 300 mg capsule 300 mg PO TID 04/25/23 04/25/23 hydroxyzine HCl 50 mg tablet 50 mg PO TID 04/25/23 04/25/23 magnesium oxide 400 mg PO BID 04/25/23 04/25/23 metoprolol tartrate 25 mg tablet 25 mg PO BID 04/25/23 04/25/23 naltrexone 50 mg tablet 50 mg PO DAILY 04/25/23 04/25/23 pantoprazole 40 mg tablet,delayed 40 mg PO DAILY 04/25/23 04/25/23 release potassium chloride 20 mEq 20 meq PO 1XD 04/25/23 04/25/23 tablet,extended release(part/cryst) quetiapine 50 mg tablet 50 mg PO QHS 04/25/23 04/25/23 quetiapine 50 mg tablet (Seroquel) 100 mg PO DAILY 04/25/23 04/25/23 thiamine HCl (vitamin B1) 100 mg 100 mg PO DAILY 04/25/23 04/25/23 tablet Allergies Allergy/AdvReac Type Severity Reaction Status Date / Time birch Allergy Unverified 04/25/23 12:39 cat dander Allergy Unverified 04/25/23 12:39 dog dander Allergy Unverified 04/25/23 12:39 egg Allergy Unverified 04/25/23 12:39 grass pollen Allergy Unverified 04/25/23 12:39 milk Allergy Unverified 04/25/23 12:39 ragweed pollen Allergy Unverified 04/25/23 12:39 wheat Allergy Unverified 04/25/23 12:39 willow Allergy Unverified 04/25/23 12:39 General Stated Complaint: ETOHWithdr SARANYA: 3 PFSH All Active Problems Alcohol abuse (Chronic) Social History Smoking/Tobacco Use Status: Current every day Tobacco Type: cigarettes Smoking risk assessment performed?: Yes Alcohol Intake: current Alcohol Intake frequency: 3 or more drinks per day Alcohol type: beer and hard liquor Drug use: Never Substance use type: does not use Housing: homeless Course Vital Signs Vital signs: Vital Signs Temperature 36.5 C 04/25/23 12:01 Pulse 121 H 04/25/23 12:01 Respiratory Rate 16 04/25/23 12:01 Blood Pressure 144/102 H 04/25/23 12:01 Pulse Oximetry 96 04/25/23 12:01 Temperature 36.5 C 04/25/23 12:01 Temperature Source Temporal Artery Scan 04/25/23 12:01 Pulse 121 H 04/25/23 12:01 Respiratory Rate 16 04/25/23 12:01 Respiratory Effort Normal 04/25/23 12:08 Respiratory Pattern Normal 04/25/23 12:59 Blood Pressure 144/102 H 04/25/23 12:01 Blood Pressure Position Sitting 04/25/23 12:01 Pulse Oximetry 96 04/25/23 12:01 Oxygen Delivery Method Room Air 04/25/23 12:01 Oxygen Flow Rate 0 04/25/23 12:01 Pain Level 0 04/25/23 12:01 Lab/Test Results Lab/Test Results: Laboratory Tests Range/Units 04/25/23 04/25/23 04/25/23 12:51 12:51 14:38 WBC (4.4-10.8) 10^3/uL 6.07 RBC (4.36-5.78) 10^6/uL 5.12 Hgb (13.5-17.5) g/dL 17.1 Hct (40.0-50.0) % 50.5 H MCV (80-95) fL 99 H MCH (27.0-33.0) pg 33.4 H MCHC (32.0-36.0) % 33.9 RDW (11.8-14.1) % 13.4 Plt Count (130-400) 10^3/uL 268 MPV (8.0-11.0) fL 9.0 Immature Gran % 0.2 Neutrophils % 61.9 Lymphocytes % 22.9 Monocytes % 13.0 Eosinophils % 1.2 Basophils % 0.8 Nucleated RBC % (0.0-0.3) % 0.0 Absolute Neutrophils (1.2-6.7) 10^3/uL 3.76 Absolute Lymphocytes (1.2-3.4) 10^3/uL 1.39 Absolute Monocytes (0.1-0.8) 10^3/uL 0.79 Absolute Eosinophils (0.0-0.7) 10^3/uL 0.07 Absolute Basophils (0.0-0.2) 10^3/uL 0.05 Sodium (136-145) mmol/L 141 Potassium (3.5-5.1) mmol/L 3.2 L Chloride (98-107) mmol/L 102 Carbon Dioxide (21.0-32.0) mmol/L 29.2 Anion Gap (3-11) mmol/L 9.8 BUN (7-18) mg/dL 3 L Creatinine (0.70-1.30) mg/dL 0.9 Est GFR (CKD-EPI 2020) (mL/min/1.73m2) 95.97 Glucose (74-106) mg/dL 111 H Calcium (8.5-10.1) mg/dL 8.9 Magnesium (1.8-2.4) mg/dL 2.0 Total Bilirubin (0.2-1.0) mg/dL 0.4 AST (15-37) U/L 33 ALT (16-63) U/L 29 Alkaline Phosphatase (46-116) U/L 131 H Total Protein (6.4-8.2) g/dL 7.1 Albumin (3.4-5.0) g/dL 3.3 L Urine Opiates Screen (Negative) Negative Urine Methadone Screen (Negative) Negative Ur Barbiturates Screen (Negative) Negative Ur Tricyclics Screen (Negative) Negative Ur Amphetamines Screen (Negative) Negative U Benzodiazepines Scrn (Negative) Negative Urine Cocaine Screen (Negative) Negative Ur THC Screen (Negative) Negative Ethyl Alcohol (<10) mg/dL 297.5 H PAWSS Have you Been Recently Intoxicated or Drunk Within the Last 30 days?: Yes Have you Ever Experienced Previous Episodes of Alcohol Withdrawal?: Yes Have you ever Experienced Withdrawal Seizures?: No Have you ever Experienced Delirium Tremens(DT)s?: Yes Have you ever undergone Alcohol Rehabilitation Treatment (i.e, inpt ot outpatient treatment programs)?: Yes Have you ever Experienced Blackouts?: Yes Have you ever Combined Alcohol with other Downers within the last 90 days?: No Have you ever Combined Alcohol with any other Substance of Abuse during the last 90 days?: No Positive Blood Alcohol level on Presentation? [PCS.BAL]: Yes Result: 6
== END 2023-04-25 15:19 | disposition left against medical advice (07) ==
LOC: ER 12:14
PROVIDERS: Emergency Provider Physician Assistant; PCP Nurse Practitioner Family
DX: F10.10 Alcohol abuse, uncomplicated (principal); F32.A Depression, unspecified
CPT/HCPCS: 80053; 80307; 99283; 80320; 83735; 85025